=== PATIENT | female | born 2000 | race Caucasian/White ===

== ENCOUNTER 2023-08-16 13:40 | Outpatient (CLI) | payer BC, SELFPAY ==
[2023-08-16 14:07] VITALS: BP 105/62; PULSE 82; TEMP 36.7
[2023-08-16 14:14] VITALS: BMI 28.6
--- NOTE | 2023-08-16 19:50 | OB.TRI.NOTE ---
HPI - General HPI Narrative KATIE SMITH, is a 23 F who presents Maternal Data Information Final SOCORRO: 11/15/23 Gestational age: 27 PFSH PFSH Home Medications vit no.95-ferrous fumarate 28 mg-folic acid 800 mcg tablet () 1 tab PO DAILY 08/16/23 [History Last Taken Unknown] Allergy/AdvReac Type Severity Reaction Status Date / Time No Known Allergies Allergy Verified 08/16/23 14:13 NST FHR Rate Baby A Baseline: 125 Variability:: Moderate Accelerations:: 15 x 15 Decelerations:: None NST Reactive:: Yes Uterine Activity:: quiet Assessment & Plan (1) Threatened premature labor: QUALIFIERS: Trimester: third trimester Qualified Code(s): O47.03 - False labor before 37 completed weeks of gestation, third trimester PLAN: Plan reactive NST
== END 2023-08-16 15:13 | disposition home or self-care (01) ==
LOC: WPOUT 13:56 → WP 13:57
PROVIDERS: Referring Provider Obstetrics & Gynecology; Visit Provider Obstetrics & Gynecology
DX: O47.03 False labor before 37 completed weeks of gestation, third trimester (principal); Z3A.00 Weeks of gestation of pregnancy not specified
CPT/HCPCS: 59025; 59050; 99221; G0378

== ENCOUNTER 2023-10-08 23:20 | Outpatient (CLI) | payer BC, SELFPAY ==
--- OUTSIDE RECORDS SUMMARY | 2023-10-08 23:40 | XMS RPT_ITS | CCD ---
Author Name Unknown Address [address] [place] [address] Organization [facility] Care Team Providers Care Group Supervisor Yard Name Role Phone Kenneth Cummins Attending Unavailable Lenora Sofia Primary Care Unavailable Kenneth Cummins Attending Unavailable Lenora Sofia Primary Care Unavailable Kenneth Cummins Unavailable Unavailable Reginaldo Sofialas Maribeth Unavailable Unavailable Lenora Sofia Unavailable Unavailable MEHREEN CURRAN Attending Unavailable LENORA SOFIA Primary Care Unavailab Reginaldo Rochelas Maribeth Unavailable Unavailable Unavailable Wilber Sofia Unavailable [phone] Yeyo Wilkinson Unavailable UnavailKenneth Henry Unavailable Gillian Ornelas Unavailable UnavailYeyo Velasquez Unavailable UnavailKENNETH Henry Referring Unavailable KENNETH CUMMINS Attending Unavailable BISMARK WILBER JANELLE Primary Care Unavailable KENNETH CUMMINS Referring Unavailable KENNETH CUMMINS Attending Unavailable WILBER SOFIA JANELLE Primary Care Unavailable KENNETH CUMMINS Referring Unavailable Dr. Guero Ybarra Attending Unavailmita MENGER WILBER JANELLE Primary Care Unavailable KENNETH CUMMINS Referring Unavailable KENNETH CUMMINS Attending Unavailable BISMARK, WILBER JANELLE Primary Care Unavailable KENNETH CUMMINS Attending Unavailable BISMARK, WILBER JANELLE Primary Care Unavailable KENNETH CUMMINS Referring Unavailable KENNETH CUMMINS Attending Unavailable BISMARK WILBER JANELLE Primary Care Unavailable KENNETH CUMMINS Attending Unavailable BISMARK, WILBER JANELLE Primary Care Unavailable KENNETH CUMMINS Attending Unavailable KENNETH CUMMINS Referring Unavailable BISMARK, WILBER JANELLE Primary Care Unavailable KENNETH CUMMINS Attending Unavailable KENNETH CUMMINS Referring Unavailable WILBER SOFIA Primary Care Unavailable KENNETH CUMMINS Attending Unavailable WILBER SOFIA Primary Care Unavailable KENNETH CUMMINS Attending Unavailable WILBER SOFIA Primary Care Unavailable KENNETH CUMMINS Referring Unavailable KENNETH CUMMINS Attending Unavailable WILBER SOFIA Primary Care Unavailable KENNETH CUMMINS Referring Unavailable KENNETH CUMMINS Attending Unavailable WILBER SOFIA Primary Care Unavailable Dr. Wilber Sofia Primary Care Unavailab cayden Wilkinson, Dr. Yeyo Macias Attending Unav ailable Unavailable Primary Care Provider Unavailabl e WISWELL, GERARDO Referring Unavailable WISWELL, GERARDO Attending Unavailable LUCAS, ILENE Referring Unavailable LUCAS, ILENE Attending Unavailable LUCAS, ILENE Referring Unavailable CONNIE SANDERS Attending Unavailable LUCAS, ILENE Referring Unavailable WISWELL, GERARDO Referring Unavailable Allergies Allergy Classification Reported Allergen(s) Allergy Type Date of Onset Reaction(s) Facility (1 source) Adhesive Tape; Translations: [Tape] Propensity to adverse reactions to drug (disorder) [facility] Repository (20 sources) Adhesive Tape allergy to substance Hives [facility] [address] Work Phone: (4 sources) Tape - Adhesive, Bandaids, Paper Unknown [facility] Medications Current Medications Medication Drug Class(es) Dates Sig (Normalized) Sig (Original) betamethasone 3 mg/ml / betamethasone acetate 3 mg/ml injectable suspension (1 source) Corticosteroid Celestone Soluspan 6 mg/mL injectable suspension ; 12 milligram(s) injectable twice Quantity: 0 Refills: 0 Ordered: 24-Dec-2021 Ronald Vazquez Status: Other Generic Substitution Allowed cephalexin 500 mg oral tablet (2 sources) Cephalosporin Antibacterial Start: 02-18-2022 End: 02-24-2022 take 1 tablet by mouth twice daily cephalexin 500 mg oral tablet ; 1 tab(s) orally 2 times a day Quantity: 14 Refills: 0 Ordered: 18-Feb-2022 Yeyo Wilkinson Start: 18-Feb-2022 End: 24-Feb-2022 Generic Substitution Allowed Comments: Finish all this medication unless otherwise directed by prescriber. Completed/Discontinued Medications Medication Drug Class(es) Dates Sig (Normalized) Sig (Original) aspirin 81 mg delayed release oral tablet (6 sources) Platelet Aggregation Inhibitor, Nonsteroidal Anti-inflammatory Drug Start: 07-01-2023 take 1 tablet by mouth once daily aspirin, enteric coated (ASPIRIN, ENTERIC COATED) 81 mg EC tablet Take 1 tablet by mouth once daily. 30 tablet 4 07/01/2023 Active Problems Active Problems Problem Classification Problem Date Documented Da te Episodic/Chronic Abdominal pain (2 sources) Left lower quadrant pain; Translations: [Left lower quadrant pain] Onset: 04-01-2023 Episodic Complications of surgical procedures or medical care (1 source) Post dural puncture headache; Translations: [Reaction to spinal or lumbar puncture] 02-18-2022 Episodic Headache; including migraine (1 source) Headache; including migraine 02-18-2022 Immunizations and screening for infectious disease (20 sources) Patient encounter status; Translations: [Screening examination for venereal disease] 05-18-2023 Episodic Inflammatory diseases of female pelvic organs (11 sources) Bacterial vaginosis; Translations: [Vaginitis and vulvovaginitis, unspecified] Episodic Menstrual disorders (11 sources) Amenorrhea; Translations: [Absence of menstruation] Chronic Mood disorders (2 sources) Depressive disorder; Translations: [Depressive disorder, not elsewhere classified] 08-14-2021 Chronic OB-related trauma to perineum and vulva (1 source) Perineal laceration during delivery; Translations: [Other specified trauma to perineum and vulva, delivered, with or without mention of antepartum condition] Onset: 02-15-2022 02-15-2022 Episodic Other complications of (8 sources) Anemia in mother complicating , childbirth AND/OR puerperium; Translations: [Anemia complicating , third trimester] Onset: 09-05-2023 09-05-2023 Chronic Other complications of (1 source) Anemia complicating , third trimester; Translations: [Anemia complicating , third trimester] Onset: 09-05-2023 Chronic Other complications of (17 sources) RhD negative; Translations: [Other specified complications of , antepartum condition or complication] 09-05-2023 Episodic Other complications of (16 sources) Mild depression; Translations: [Mental disorders of mother, condition or complication] Episodic Other complications of (2 sources) Other specified related conditions, first trimester; Translations: [Oth related conditions, first trimester] Onset: 04-01-2023 Episodic Other endocrine disorders (10 sources) Menarche; Translations: [History of Menarche] Chronic Other gastrointestinal disorders (4 sources) Abnormal intestinal absorption; Translations: [Intestinal malabsorption, unspecified] Onset: 09-13-2023 09-13-2023 Chronic Other nutritional; endocrine; and metabolic disorders (6 sources) Body mass index 30+ - obesity; Translations: [Obesity, unspecified] Chronic Other and delivery including normal (20 sources) Urine test positive; Translations: [History of past delivery] Onset: 05-18-2023 Resolved: 01-15-2020 02-13-2022 Episodic Past or Other Problems Problem Classification Problem Date Documented Da te Episodic/Chronic Other complications of (10 sources) Complication of , childbirth and/or the puerperium; Translations: [Other specified related conditions, unspecified trimester] Onset: 04-28-2023 04-28-2023 Episodic Other complications of (9 sources) Obstetric spinal and epidural anesthesia-induced headache; Translations: [Spinal and epidural anesthesia induced headache during , unspecified trimester] Onset: 04-28-2023 04-28-2023 Episodic Screening and history of mental health and substance abuse codes (11 sources) H/O: depression; Translations: [Personal history of other mental and behavioral disorders] Onset: 04-28-2023 04-28-2023 Episodic Unclassified (8 sources) Patient encounter status; Translations: [Screening for STD (sexually transmitted disease)] Unclassified (8 sources) Cancer cervix screening status; Translations: [Screening for cervical cancer] Unclassified (16 sources) Finding of menstrual bleeding; Translations: [Menstruation] Results Test Name Value Interpretation Reference Range Facil ity Vital Signs Date Time Vital Sign Value Performing Clinician Facility 09-05-2023 13:56-0400 Body weight 78.11 kg Gerardo Castellon MD Work Phone: [facility] 09-05-2023 13:56-0400 Diastolic blood pressure 62 mm[Hg] Gerardo Castellon MD Work Phone: [facility] 09-05-2023 13:56-0400 Systolic blood pressure 110 mm[Hg] Gerardo Castellon MD Work Phone: [facility] 07-01-2023 14:14-0400 Body weight 71.67 kg Connie Danielmolly NURSE PRACTITIONER MANAGER.CNM Work Phone: [facility] 07-01-2023 14:14-0400 Diastolic blood pressure 62 mm[Hg] Connie Maríamolly NURSE PRACTITIONER MANAGER.CNM Work Phone: [facility] 07-01-2023 14:14-0400 Systolic blood pressure 90 mm[Hg] Connie Sanders NURSE PRACTITIONER MANAGER.CNM Work Phone: [facility] 05-18-2023 13:04-0400 Body height 161 cm Ilene Lucas NURSE PRACTITIONER MANAGER.CNM Work Phone: [facility] 05-18-2023 13:04-0400 Body weight 68.58 kg Ilene Lucas NURSE PRACTITIONER MANAGER.CNM Work Phone: [facility] 05-18-2023 13:04-0400 Diastolic blood pressure 66 mm[Hg] Ilene Lucas NURSE PRACTITIONER MANAGER.CNM Work Phone: [facility] 05-18-2023 13:04-0400 Systolic blood pressure 108 mm[Hg] Ilene Lucas NURSE PRACTITIONER MANAGER.CNM Work Phone: [facility] 02-18-2022 02:07-0400 Body temperature 98.78 [degF] Wibler Bismark Other Phone: [facility] 02-18-2022 02:07-0400 Diastolic blood pressure 91 mm[Hg] Wilber Bismark Other Phone: [facility] 02-18-2022 02:07-0400 Heart rate 82 /min Wilber Bismark Other Phone: [facility] 02-18-2022 02:07-0400 Respiratory rate 16 /min Wilber Bismark Other Phone: [facility] 02-18-2022 02:07-0400 SaO2% (BldA) [Mass fraction] 99 % Wilber Bismark Other Phone: [facility] 02-18-2022 02:07-0400 Systolic blood pressure 116 mm[Hg] Wilber Bismark Other Phone: [facility] 02-15-2022 18:38-0400 Body temperature 97.7 [degF] Wilber Bismark Other Phone: [facility] 02-15-2022 18:38-0400 Diastolic blood pressure 85 mm[Hg] Wilber Bismark Other Phone: [facility] 02-15-2022 18:38-0400 Heart rate 87 /min Wilber Bismark Other Phone: [facility] 02-15-2022 18:38-0400 Respiratory rate 16 /min Wilber Bismark Other Phone: [facility] 02-15-2022 18:38-0400 SaO2% (BldA) [Mass fraction] 98 % Wilber Bismark Other Phone: [facility] 02-15-2022 18:38-0400 Systolic blood pressure 127 mm[Hg] Wilber Bismark Other Phone: [facility] 02-12-2022 14:08-0400 Body height 160.02 cm Wilber L Bismark Work Phone: [facility] Work Phone: 02-12-2022 14:08-0400 Body mass index (BMI) [Ratio] 34.76 kg/m2 Wilber L Bismark Work Phone: [facility] Work Phone: 02-12-2022 14:08-0400 Body surface area Derived from formula 1.92 m2 Wilber L Bismark Work Phone[facility] Work Phone: 02-12-2022 14:08-0400 Body weight 89 kg Wilber L Bismark Work Phone: [place] [address] [address] Work Phone: 02-12-2022 14:08-0400 Diastolic blood pressure 68 mm[Hg] Wilber L Bismark Work Phone: [place] [address] [address] Work Phone: 02-12-2022 14:08-0400 Systolic blood pressure 112 mm[Hg] Wilber L Bismark Work Phone: [place] [address] [address] Work Phone: 02-05-2022 13:45-0400 Body height 160.02 cm Wilber L Bismark Work Phone: [place] [address] [address] Work Phone: 02-05-2022 13:45-0400 Body mass index (BMI) [Ratio] 33.86 kg/m2 Wilber L Bismark Work Phone: [address] Work Phone: 02-05-2022 13:45-0400 Body surface area Derived from formula 1.9 m2 Wilber L Bismark Work Phone: [place] [address] [address] Work Phone: 02-05-2022 13:45-0400 Body weight 86.7 kg Wilber L Bismark Work Phone: [place] [address] [address] Work Phone: 02-05-2022 13:45-0400 Diastolic blood pressure 70 mm[Hg] Wilber L Bismark Work Phone: [place] [address] [address] Work Phone: 02-05-2022 13:45-0400 Systolic blood pressure 100 mm[Hg] Wilber L Bismark Work Phone: [place] [address] [address] Work Phone: 01-29-2022 13:11-0400 Body height 160.02 cm Wilber L Bismark Work Phone: [facility] [place] [address] [address] Work Phone: 01-29-2022 13:11-0400 Body mass index (BMI) [Ratio] 33.39 kg/m2 Wilber L Bismark Work Phone: [place] [address] [address] Work Phone: 01-29-2022 13:11-0400 Body surface area Derived from formula 1.89 m2 Wilber L Bismark Work Phone: [facility] [address] [address] Work Phone: 01-29-2022 13:11-0400 Body weight 85.5 kg Wilber L Bismark Work Phone: [place] [address] [address] Work Phone: 01-29-2022 13:11-0400 Diastolic blood pressure 68 mm[Hg] Wilber L Bismark Work Phone: [place] [address] [address] Work Phone: 01-29-2022 13:11-0400 Systolic blood pressure 116 mm[Hg] Wilber L Bismark Work Phone: [place] [address] [address] Work Phone: 01-22-2022 13:06-0400 Body height 160.02 cm Wilber L Bismark Work Phone: [place] [address] [address] Work Phone: 01-22-2022 13:06-0400 Body mass index (BMI) [Ratio] 33 kg/m2 Wilber L Bismark Work Phone: [place] [address] [address] Work Phone: 01-22-2022 13:06-0400 Body surface area Derived from formula 1.88 m2 Wilber L Bismark Work Phone: [place] [address] [address] Work Phone: 01-22-2022 13:06-0400 Body weight 84.5 kg Wilber L Bismark Work Phone: [facility] [address] [address] Work Phone: 01-22-2022 13:06-0400 Diastolic blood pressure 66 mm[Hg] Wilber L Bismark Work Phone: [facility] [address] [address] Work Phone: 01-22-2022 13:06-0400 Systolic blood pressure 114 mm[Hg] Wilber L Bismark Work Phone: [facility] [address] [address] Work Phone: 01-08-2022 13:16-0500 Body height 160.02 cm Wilber L Bismark Work Phone: [place] [address] [address] Work Phone: 01-08-2022 13:16-0500 Body mass index (BMI) [Ratio] 32.41 kg/m2 Wilber L Bismark Work Phone: [place] [address] [address] Work Phone: 01-08-2022 13:16-0500 Body surface area Derived from formula 1.86 m2 Wilber L Bismark Work Phone: [place] [address] [address] Work Phone: 01-08-2022 13:16-0500 Body weight 83 kg Wilber L Bismark Work Phone: [place] [address] [address] Work Phone: 01-08-2022 13:16-0500 Diastolic blood pressure 64 mm[Hg] Wilber L Bismark Work Phone: [place] [address] [address] Work Phone: 01-08-2022 13:16-0500 Systolic blood pressure 116 mm[Hg] Wilber L Bismark Work Phone: [facility] [place] [address] [address] Work Phone: 12-25-2021 09:55-0500 Body height 160.02 cm Wilber L Bismark Work Phone: [place] [address] [address] Work Phone: 12-25-2021 09:55-0500 Body mass index (BMI) [Ratio] 32.65 kg/m2 Wilber L Bismark Work Phone: [place] [address] [address] Work Phone: 12-25-2021 09:55-0500 Body surface area Derived from formula 1.87 m2 Wilber L Bismark Work Phone: [place] [address] [address] Work Phone: 12-25-2021 09:55-0500 Body temperature 97.1 [degF] Wilber L Bismark Work Phone: [facility] [address] [address] Work Phone: 12-25-2021 09:55-0500 Body weight 83.6 kg Wilber L Bismark Work Phone: [place] [address] [address] Work Phone: 12-25-2021 09:55-0500 Diastolic blood pressure 64 mm[Hg] Wilber L Bismark Work Phone: [place] [address] [address] Work Phone: 12-25-2021 09:55-0500 Systolic blood pressure 122 mm[Hg] Wilber L Bismark Work Phone: [place] [address] [address] Work Phone: 10-15-2021 12:50-0500 Diastolic blood pressure 67 mm[Hg] Wilber Bismark Other Phone: [facility] 10-15-2021 12:50-0500 Heart rate 102 /min Wilber Bismark Other Phone: [facility] 10-15-2021 12:50-0500 Respiratory rate 18 /min Wilber Bismark Other Phone: [facility] 10-15-2021 12:50-0500 SaO2% (BldA) [Mass fraction] 100 % Wilber Bismark Other Phone: [facility] 10-15-2021 12:50-0500 Systolic blood pressure 116 mm[Hg] Wilber Bismark Other Phone: [facility] 10-15-2021 11:12-0500 Body height 162.5 cm Wilber Bismark Other Phone: [facility] 10-15-2021 11:12-0500 Body temperature 98.24 [degF] Wilber Bismark Other Phone: [facility] 10-15-2021 11:12-0500 Body weight 80 kg Wilber Bismark Other Phone: [facility] 09-25-2021 10:51-0500 Body height 160.02 cm Wilber L Bismark Work Phone: [facility] Work Phone: 09-25-2021 10:51-0500 Body mass index (BMI) [Ratio] 31.48 kg/m2 Wilber L Bismark Work Phone: [facility] Work Phone: 09-25-2021 10:51-0500 Body surface area Derived from formula 1.84 m2 Wilber L Bismark Work Phone: [facility] Work Phone: 09-25-2021 10:51-0500 Body temperature 96.8 [degF] Wilber L Bismark Work Phone: [facility] Work Phone: 09-25-2021 10:51-0500 Body weight 80.6 kg Wilber L Bismark Work Phone: [facility] Work Phone: 09-25-2021 10:51-0500 Diastolic blood pressure 70 mm[Hg] Wilber L Bismark Work Phone[facility] Work Phone: 09-25-2021 10:51-0500 Systolic blood pressure 110 mm[Hg] Wilber L Bismark Work Phone: [place] [address] [address] Work Phone: 08-28-2021 10:18-0400 Body height 160.02 cm Wilber L Bismark Work Phone: [place] [address] [address] Work Phone: 08-28-2021 10:18-0400 Body mass index (BMI) [Ratio] 30.34 kg/m2 Wilber L Bismark Work Phone: [place] [address] [address] Work Phone: 08-28-2021 10:18-0400 Body surface area Derived from formula 1.81 m2 Wilber L Bismark Work Phone: [place] [address] [address] Work Phone: 08-28-2021 10:18-0400 Body temperature 97.3 [degF] Wilber L Bismark Work Phone: [place] [address] [address] Work Phone: 08-28-2021 10:18-0400 Body weight 77.7 kg Wilber L Bismark Work Phone: [place] [address] [address] Work Phone: 08-28-2021 10:18-0400 Diastolic blood pressure 62 mm[Hg] Wilber L Bismark Work Phone: [facility] Work Phone: 08-28-2021 10:18-0400 Systolic blood pressure 108 mm[Hg] Wilber L Bismark Work Phone: [place] [address] [address] Work Phone: 08-14-2021 17:30-0400 Diastolic blood pressure 79 mm[Hg] Wilber Bismark Other Phone: [facility] 08-14-2021 17:30-0400 Heart rate 87 /min Wilber Bismark Other Phone: [facility] 08-14-2021 17:30-0400 Respiratory rate 16 /min Wilber Bismark Other Phone: [facility] 08-14-2021 17:30-0400 SaO2% (BldA) [Mass fraction] 97 % Wilber Bismark Other Phone: [facility] 08-14-2021 17:30-0400 Systolic blood pressure 119 mm[Hg] Wilber Bismark Other Phone: [facility] 08-14-2021 15:11-0400 Body height 160 cm Wilber Bismark Other Phone: [facility] 08-14-2021 15:11-0400 Body temperature 98.06 [degF] Wilber Bismark Other Phone: [facility] 08-14-2021 15:11-0400 Body weight 75.3 kg Wilber Bismark Other Phone: [facility] 07-20-2021 09:50-0400 Body height 160.02 cm Wilber L Bismark [facility] Work Phone: 07-20-2021 09:50-0400 Body mass index (BMI) [Ratio] 29.06 kg/m2 Wilber L Bismark Work [facility]: [facility] Work Phone: 07-20-2021 09:50-0400 Body surface area Derived from formula 1.78 m2 Wilber L Bismark [facility] [address] Work Phone: 07-20-2021 09:50-0400 Body temperature 97.8 [degF] Wilber Menger Work Phone: [facility] [address] Work Phone: 07-20-2021 09:50-0400 Body weight 74.4 kg Wilber Menger Work Phone: [facility] [address] Work Phone: 07-20-2021 09:50-0400 Diastolic blood pressure 62 mm[Hg] Wilber Menger Work Phone: [facility] [address] Work Phone: 07-20-2021 09:50-0400 Systolic blood pressure 114 mm[Hg] Wilber Menger Work Phone: [facility] [address] [address] Work Phone: 11-13-2019 15:26-0500 BMI (Body Mass Index) 31.2 kg/m2 Kenneth [address] Work Phone: 11-13-2019 15:26-0500 Body weight 79.9 kg Kenneth Tru[address] Work Phone: 11-13-2019 15:26-0500 BP Diastolic 62 mm[Hg] Kenneth [address] Work Phone: 11-13-2019 15:26-0500 BP Systolic 112 mm[Hg] Kenneth Tru[address] Work Phone: 11-13-2019 15:26-0500 BSA (Body Surface Area) 1.83 m2 Kenneth Tru[address] Work Phone: 11-13-2019 15:26-0500 Height 160.02 cm Kenneth Tru[address] Work Phone: 10-09-2019 13:47-0500 BMI (Body Mass Index) 29.49 kg/m2 Kenneth Kelley [facility] Work Phone: 10-09-2019 13:47-0500 Body weight 75.5 kg Kenneth morocho [facility] Work Phone: 10-09-2019 13:47-0500 BP Diastolic 64 mm[Hg] Kenneth morocho [facility] Work Phone: 10-09-2019 13:47-0500 BP Systolic 116 mm[Hg] Kenneth morocho [facility] Work Phone: 10-09-2019 13:47-0500 BSA (Body Surface Area) 1.79 m2 Kenneth Bueno [facility] Work Phone: 10-09-2019 13:47-0500 Height 160.02 cm Kenneth morocho [facility] Work Phone: 09-21-2019 15:50-0500 BMI (Body Mass Index) 28.9 kg/m2 Kenneth Kelley [facility] Work Phone: 09-21-2019 15:50-0500 Body weight 74 kg Kenneth morocho [facility] Work Phone: 09-21-2019 15:50-0500 BP Diastolic 66 mm[Hg] Kenneth morocho [facility] Work Phone: Encounters Encounter Date Encounter Type Care Provider Facility Start: 09-19-2023 Orders Only Gerardo Morocho Work Phone: OB/Gynecology Start: 09-13-2023 ambulatory Sofya Fisher RN [facility] Procedures Date Procedure Procedure Detail Performing Clinician Start: 09-05-2023 Antibody screen GERARDO BETANCUR Plan of Treatment Date Care Activity Detail Author Start: 09-05-2033 Urine microalbumin profile DTaP,Tdap,Td Vaccine (8 - Td or Tdap) [facility] Start: 05-18-2026 PAP TESTING PAP TESTING [facility] Start: 09-05-2023 End: 12-05-2023 GEST GLUC SCREEN, 1-HR, 50 GM, NON-FASTING GEST GLUC SCREEN, 1-HR, 50 GM, NON-FASTING Lab Routine 29 weeks gestation of Encounter for supervision of normal first in second trimester Expected: 09/05/2023, Expires: 12/05/2023 [facility] Work Phone: Immunizations Immunization Date Immunization Notes Care Provider Fa parag 09-05-2023 RHO(D) immune globul in- IV or IM Gerardo Castellon MD Work Phone: [facility] 09-05-2023 tetanus toxoid, redu abdais diphtheria toxoid, and acellular pertussis vaccine, adsorbed Gerardo Castellon MD Work Phone: [facility] Payers Date Payer Category Payer Medicaid AN[employer]M MEDICAID [employer] [employer] [place] [id number] 2023-Present [phone] [address] [place] [address] Medicaid [id number] 2023 Medicaid [id number] 2018 Medicaid [id number] 2018 Unknown 2016 Medicaid [id number] 1999 Unknown [id number] [id number] 1999 Unknown [id number] [id number] 1999 Unknown [id number] [id number] 1999 Unknown [id number] [id number] 1999 Unknown [id number] [id number] 1999 Unknown [id number] [id number] 1999 Unknown [id number] 2.16.840.1.743303.3.579.2.356 1999 Unknown [id number] 2.16.840.1.881770.3.579.2.356 1999 Unknown [id number] 2.16.840.1.798021.3.579.2.356 1999 Unknown [id number] 2.16.840.1.175342.3.579.2.356 1999 Unknown [id number] 2.16.840.1.725952.3.579.2.356 1999 Unknown [id number] 2.16.840.1.050050.3.579.2.356 1999 Unknown [id number] 2.16.840.1.778545.3.579.2.356 1999 Unknown [id number] 2.16.840.1.537233.3.579.2.356 1999 Unknown [id number] 2.16.840.1.725789.3.579.2.356 1999 Unknown [id number] 2.16.840.1.517224.3.579.2.356 1999 Unknown [id number] [id number] Self-pay [id number] Social History Date Type Detail Facility Assertion Unknown if ever smoked [facility] [address] Work Phone: Start: 05-18-2023 End: 09-05-2023 No alcohol use No alcohol use [facility] 35 0 [employer] Work Phone: Tobacco smoking consumption unknown [facility] Start: 04-28-2023 Tobacco smoking stat NHIS Ex-smoker [facility] Work Phone: End: 04-22-2022 History of tobacco use Current smoker [facility] Work Phone: End: 04-22-2022 History of tobacco use Cigarette Smoker [facility] Work Phone: Start: 04-28-2023 Tobacco use and exposure Smokeless tobacco non-user [facility] Work Phone: Start: 04-28-2023 End: 09-05-2023 Alcohol intake Ex-drinker (finding) [facility] Start: 04-28-2023 Education 13 [facility] Start: 04-28-2023 Alcohol Comment Rarely [facility] Start: 02-22-2023 [facility] Start: 2000 Sex Assigned At Not on file [facility] Start: 05-18-2023 End: 09-05-2023 Tobacco use panel [facility] National Score (1-100), lower number is lower risk 80 [facility] Functional Status Date Assessment Result Facility Functional observable [facility] NEGATED: Highlighted row Functional performance Functional status health issues are not documented Disease [employer] Work Phone: Mental Status Date Assessment Result Facility 02-15-2022 Cognitive functi ons [id number] [facility] NEGATED: Highlighted row Cognitive function [Interpretation] Cognitive status health issues are not documented Disease [facility] [employer] Work Phone: Clinical Notes 05-07-2021 to 09-19-2023 Gerardo Castellon MD - 09/19/2023 12:05 PM [facility] Sofya Daly RN - 09/13/2023 12:24 PM Edwige Coelho RN - 09/05/2023 2:59 PM Maria C Griffiths MA - 09/05/2023 1:56 PM EDTPatient Instructions<item> Note Date & Type Note Facility 09-19-2023 Note HNO ID: [id number] Author: Gerrado Castellon MD Service: ? Author Type: Physician Type: Progress Notes Filed: 09/19/2023 12:05 PM Note Text: Signed [facility] 09-19-2023 History of Presen t illness Narrative Signed documented in this encounter [facility] 09-13-2023 Note HNO ID: [id number] Author: Sofya Fisher RN Service: ? Author Type: Registered Nurse Type: Progress Notes Filed: 09/13/2023 12:26 PM Note Text: Patient referred to Blood Management for evaluation and treatment of pre-surgical anemia and/or iron deficiency. Non-surgical: anemia in Date of surgery: NA Medical/Surgical History: PAST MEDICAL HISTORY Diagnosis Date Anemia Depression Fracture of upper extremity left arm age 10 Headache following intrapartum spinal anesthesia 04/28/2023 depression Trauma PAST SURGICAL HISTORY Procedure Laterality Date APPENDECTOMY PAST SURGICAL HISTORY OF Left x3 on left arm-hardware placed Other significant Medical/Surgical history: - None Current Outpatient Medications Medication Sig aspirin, enteric coated (ASPIRIN, ENTERIC COATED) 81 mg EC tablet Take 1 tablet by mouth once daily. prental multivitamin 27 mg iron- 800 mcg tablet Take 1 tablet by mouth once daily. Iron 18 mg tab Take by mouth. No current facility-administered medications for this visit. Current medications that may affect iron absorption and/or blood loss: - None Baseline laboratory values: WBC (k/uL) Date Value 09/05/2023 12.15 (H) RBC (m/uL) Date Value 09/05/2023 3.66 (L) Hemoglobin (g/dL) Date Value 09/05/2023 9.0 (L) Hematocrit (%) Date Value 09/05/2023 28.9 (L) MCV (fL) Date Value 09/05/2023 79.0 (L) MCH (pg) Date Value 09/05/2023 24.6 (L) MCHC (g/dL) Date Value 09/05/2023 31.1 RDW-CV (%) Date Value 09/05/2023 15.2 (H) Platelet Count (k/uL) Date Value 09/05/2023 234 MPV (fL) Date Value 09/05/2023 10.7 Iron Date Value Ref Range Status 09/07/2023 27 (L) 41 - 186 ug/dL Final TIBC Date Value Ref Range Status 09/07/2023 >527 (H) 232 - 386 ug/dL Final Ferritin Date Value Ref Range Status 09/07/2023 12.2 (L) 14.7 - 205.1 ng/mL Final Transferrin Saturation Date Value Ref Range Status 09/07/2023 <5.1 (L) 15.0 - 57.0 % Final Assess for the need to augment a patient?s natural red blood cell production: - Blood transfusion avoidance - Iron depletion Recommendations according to Blood Management patient care guidelines: - Iron Sucrose 200 mg, IV infusion, dose(s) 4 total iron deficit using Ganzoni equation = 831 mg (pre- wt 69 kg/goal hgb 11 g/dL) Clinical information is sent to a provider for review and evaluation for treatment. [facility] 09-13-2023 History of Presen t illness Narrative Patient referred to Blood Management for evaluation and treatment of pre-surgical anemia and/or iron deficiency. Non-surgical: anemia in Date of surgery: NA Medical/Surgical History: PAST MEDICAL HISTORY Diagnosis Date Anemia Depression Fracture of upper extremity left arm age 10 Headache following intrapartum spinal anesthesia 04/28/2023 depression Trauma PAST SURGICAL HISTORY Procedure Laterality Date APPENDECTOMY PAST SURGICAL HISTORY OF Left x3 on left arm-hardware placed Other significant Medical/Surgical history: - None Current Outpatient Medications Medication Sig aspirin, enteric coated (ASPIRIN, ENTERIC COATED) 81 mg EC tablet Take 1 tablet by mouth once daily. prental multivitamin 27 mg iron- 800 mcg tablet Take 1 tablet by mouth once daily. Iron 18 mg tab Take by mouth. No current facility-administered medications for this visit. Current medications that may affect iron absorption and/or blood loss: - None Baseline laboratory values: WBC (k/uL) Date Value 09/05/2023 12.15 (H) RBC (m/uL) Date Value 09/05/2023 3.66 (L) Hemoglobin (g/dL) Date Value 09/05/2023 9.0 (L) Hematocrit (%) Date Value 09/05/2023 28.9 (L) MCV (fL) Date Value 09/05/2023 79.0 (L) MCH (pg) Date Value 09/05/2023 24.6 (L) MCHC (g/dL) Date Value 09/05/2023 31.1 RDW-CV (%) Date Value 09/05/2023 15.2 (H) Platelet Count (k/uL) Date Value 09/05/2023 234 MPV (fL) Date Value 09/05/2023 10.7 Iron Date Value Ref Range Status 09/07/2023 27 (L) 41 - 186 ug/dL Final TIBC Date Value Ref Range Status 09/07/2023 >527 (H) 232 - 386 ug/dL Final Ferritin Date Value Ref Range Status 09/07/2023 12.2 (L) 14.7 - 205.1 ng/mL Final Transferrin Saturation Date Value Ref Range Status 09/07/2023 <5.1 (L) 15.0 - 57.0 % Final Assess for the need to augment a patient s natural red blood cell production: - Blood transfusion avoidance - Iron depletion Recommendations according to Blood Management patient care guidelines: - Iron Sucrose 200 mg, IV infusion, dose(s) 4 total iron deficit using Ganzoni equation = 831 mg (pre- wt 69 kg/goal hgb 11 g/dL) Clinical information is sent to a provider for review and evaluation for treatment. documented in this encounter [facility] 09-05-2023 Note HNO ID: [id number] Author: Edwige Solomon RN Service: ? Author Type: ? Type: Progress Notes Filed: 09/05/2023 5:20 PM Note Text: Morgan Smith 23 year old is here for her injection of Rhophylac. Morgan Smith Antibody Screen (no units) Date Value 05/18/2023 Negative Morgan Smith is RH Negative Rhophylac was given without incident. See immunizations for details of immunizations administered today. Provider Dr. Castellon was present in office at time of injection Morgan Smith was given her Rhophylac pocket card. Edwige Solomon RN [facility] 09-05-2023 Note HNO ID: [id number] Author: Maria C Jimenez MA Service: ? Author Type: Gas Cutter Type: Progress Notes Filed: 09/05/2023 5:20 PM Note Text: Patient identified by name and date of . Morgan Smith presents today for a vaccination of Tdap. Patient denies an allergy to latex: yes Patient denies a severe (life-threatening) allergy to a previous dose of Tdap, DTP, DTaP, DT or Td vaccine. Yes Patient denies history of epilepsy or neurological problems: Yes Patient is afebrile and denies being moderately or severely ill: Yes Patient denies history of Guillain-Boston Syndrome (a severe paralytic illness): Yes Tdap Adacel injection was given without incident. See immunizations for details of immunizations administered today. VIS sheet provided: Yes Provider Gerardo Castellon DO was present in office at time of injection. Maria C Jimenez MA [facility] 09-05-2023 History of Presen t illness Narrative Morgan Smith 23 year old is here for her injection of Rhophylac. Morgan Smith Antibody Screen (no units) Date Value 05/18/2023 Negative Morgan Smith is RH Negative Rhophylac was given without incident. See immunizations for details of immunizations administered today. Provider Dr. Castellon was present in office at time of injection Morgan Smith was given her Rhophylac pocket card. Edwige Solomon RN Patient identified by name and date of . Morgan Smith presents today for a vaccination of Tdap. Patient denies an allergy to latex: yes Patient denies a severe (life-threatening) allergy to a previous dose of Tdap, DTP, DTaP, DT or Td vaccine. Yes Patient denies history of epilepsy or neurological problems: Yes Patient is afebrile and denies being moderately or severely ill: Yes Patient denies history of Guillain-Boston Syndrome (a severe paralytic illness): Yes Tdap Adacel injection was given without incident. See immunizations for details of immunizations administered today. VIS sheet provided: Yes Provider Gerardo Castellon DO was present in office at time of injection. Maria C Jimenez MA documented in this encounter [facility] 09-05-2023 Miscellaneous Notes Formattin g of this note might be different from the original. SW- No ctx, vb, lof. Good FM PE: Gen- NAD, well appearing Abd- Soft, gravid, NT Ext- No edema See flowsheet A/p 29 wk gestation - 28 wk labs today - Tdap and Rhogam today - Desires sterilization. Title 19 signed. She understands sterilization is permanent and irreversible and there is a risk for regret. She is 100% certain she does not desire future pregnancies - LARC signed - RTO 2 wks Gerardo Castellon DO documented in this encounter [facility] 09-05-2023 Instructions Gerardo Castellon MD - 09/05/2023 1:49 PM EDT SEQUENTIAL SCREENINGS The [facility] offers sequential screenings for women who are interested in screenings for chromosomal abnormalities and certain defects during a . The sequential screen combines ultrasound and blood tests to determine the risk of chromosomal abnormalities, including Down's Syndrome (Trisomy 21) and Trisomy 18, as well as open neural tube defects including spina bifida. Ultrasound examination is performed between 11 weeks and 13 weeks gestational age. Blood tests are drawn after the ultrasound and again later in the between 15 and 21 weeks gestational age. Please let your physician know if you are interested in this testing. It will require an appointment with our community planning technician. This is not an ultrasound performed by a physician in our office during a routine visit. SIGNS AND SYMPTOMS OF LABOR 1. Contractions every 10 minutes or more often 2. Clear, pink, or brownish fluid (water) leaking from vagina 3. Feeling that baby is pushing down, pressure 4. Low, dull backache 5. Cramps that feel like a period 6. Cramps with or without diarrhea If you notice any of the above symptoms, contact our office at [phone] and ask to speak with a nurse. After hours, you can call doctors registry at [phone] OR call [facility] at [phone] and ask to have the doctor exploration geologist paged. If you consider this an emergency, dial [phone] or go to your nearest emergency department. NEED HELP? Are you dealing with a violent or abusive relationship? Are you a victim of rape or sexual assult? Call [facility] ([facility] 24 hour Crisis Hotline: 459.102.8262 or 243-259-4723. MANUAL Your Guide to a Healthy manual is now on-line. Visit [email or web address] [email or web address] to download your free copy In person and online childbirth options: 1) [facility] Online Virtual Childbirth and Class. -Please call to register and for more information: [phone] and register for our online classes they are $40 for both or $20 for just the class ?? 2) [facility] Online Childbirth Education, , and classes: [email or web address] 3) Here is a list of online childbirth education and resources. [facility] has online childbirth, , and parenting classes. [email or web address]://[email or web address] .[email or web address], type in childbirth [email or web address] /childbirth-[email or web address]/ [email or web address] [email or web address]/ documented in this encounter [facility] 07-01-2023 Miscellaneous Notes Formattin g of this note might be different from the original. S: Morgan Smith is a 23 year old female who presents at 20.3 weeks gestation for a routine visit. Just completed anatomy US- awaiting final results. Feeling good movement. Denies headache, visual changes, chest pain, shortness of breath, vaginal bleeding, leakage of fluid, or dysuria. Feeling well, no complaints. O: See flow sheet Gen: No apparent distress Abd: Gravid, nontender ASSESSMENT/PLAN: 1. 20 weeks gestation of - ICD9: V22.2, ICD10: Z3A.20 (primary diagnosis) - URINE OB DIP B/O - ASA daily- Rx sent 2. Encounter for supervision of normal first in second trimester - ICD9: V22.0, ICD10: Z34.02 P: 1) PTL precautions reviewed and when to call 2) RTO 4 weeks or sooner if needed Connie Sanders APRN.CNM documented in this encounter [facility] 07-01-2023 Instructions Rey Chris Cma - 07/01/2023 1:54 PM EDT SEQUENTIAL SCREENINGS The [facility] offers sequential screenings for women who are interested in screenings for chromosomal abnormalities and certain defects during a . The sequential screen combines ultrasound and blood tests to determine the risk of chromosomal abnormalities, including Down's Syndrome (Trisomy 21) and Trisomy 18, as well as open neural tube defects including spina bifida. Ultrasound examination is performed between 11 weeks and 13 weeks gestational age. Blood tests are drawn after the ultrasound and again later in the between 15 and 21 weeks gestational age. Please let your physician know if you are interested in this testing. It will require an appointment with our community planning technician. This is not an ultrasound performed by a physician in our office during a routine visit. SIGNS AND SYMPTOMS OF LABOR 1. Contractions every 10 minutes or more often 2. Clear, pink, or brownish fluid (water) leaking from vagina 3. Feeling that baby is pushing down, pressure 4. Low, dull backache 5. Cramps that feel like a period 6. Cramps with or without diarrhea If you notice any of the above symptoms, contact our office at [phone] and ask to speak with a nurse. After hours, you can call doctors registry at [phone] OR call [facility] at [phone] and ask to have the doctor exploration geologist paged. If you consider this an emergency, dial [phone] or go to your nearest emergency department. NEED HELP? Are you dealing with a violent or abusive relationship? Are you a victim of rape or sexual assult? Call [facility] ([place]) 24 hour Crisis Hotline: 959.166.5042 or 253-238-1093. MANUAL Your Guide to a Healthy manual is now on-line. Visit [email or web address]/HealthyPre gnancyGuide to download your free copy documented in this encounter [facility] 05-26-2023 Miscellaneous Notes Formattin g of this note might be different from the original. ARBEN-See progress note. Ilene Lucas APRN.CNM documented in this encounter [facility] 05-18-2023 Note HNO ID: [id number] Author: Ilene Lucas APRN.CNM Service: ? Author Type: Director Pharmacy Services Type: Progress Notes Filed: 05/26/2023 1:44 PM Note Text: INITIAL OB ASSESSMENT Belt Loop Maker offered: Patient declines. Obstetric History T3 L3 SAB0 IAB0 Ectopic0 Multiple0 Live Births3 Name of Baby 1: Lucia Date: 02/19/16 GA: 39w0d Delivery: Not recorded Apgar1: Not recorded Apgar5: Not recorded Living: Living Name of Baby 2: Chava Date: 03/21/20 GA: 39w2d Delivery: Vaginal, Spontaneous Apgar1: Not recorded Apgar5: Not recorded Living: Living Name of Baby 3: Nicolás Date: 02/14/22 GA: 38w0d Delivery: Vaginal, Spontaneous Apgar1: Not recorded Apgar5: Not recorded Living: Living Name of Baby 4: Not recorded Date: Not recorded GA: Not recorded Delivery: Not recorded Apgar1: Not recorded Apgar5: Not recorded Living: Not recorded HPI: Morgan is a 23 year old White here to establish Obstetrical Care. Patient's last menstrual period was 02/10/2023 (approximate). from OB Dating Form. Cycles irregular was planned Complaints: None OB History T3 L3 SAB0 IAB0 Ectopic0 Multiple0 Live Births3 Previous history: Prior : never History of 4th degree laceration: No History of shoulder dystocia: No History of Hypertensive disorders including pre-eclampsia, chronic hypertension or gestational hypertension: No History of gestational diabetes: No Patient's Risk Screening for delivery: MEDICAL/PSYCHOSOCIAL HISTORY: History of hemorrhage or bleeding concerns: No Thyroid Disease: No History of chronic hypertension: No History of pre-existing diabetes: No No results found for: ABORHD BMI 26.46 kg/(m2) History of abnormal pap: No Prior treatment for cervical dysplasia: none. History of STDs: None Tobacco use: Yes, smoking 5-6 PPD, down from almost a full pack. Trying to quite. Vaping at times but stopped with . Caffeine use: Yes Drug use: No Alcohol use: No Multivitamin with Folic acid: Yes Protestant or heritage: No Would refuse blood transfusion if medically necessary: No Are you currently employed? Yes, Occupation: [employer] in [place], [place] Do you have any history of depression, anxiety, PTSD, eating disorders or other mood problems: Yes Do you have any safety concerns or history of traumatic events that you would like to discuss with your provider: No How often does this describe you? I don't have enough money to pay my bills: Never Within the past 12 months, have you worried that your food would run out before you had money to buy more: Never In the past 12 months, has lack of reliable transportation kept you from going to medical appointments or work, or from keeping things needed for daily living: Never In the past 12 months, have you had any concerns about having a place to live, or about the condition or quality of your housing: Never Are there any cultural or spiritual needs we should be aware of: No Depression: denies, admits to symptoms of depression. OB Depression and Anxiety Screening- This Encounter (since 05/17/2023) None GENETIC SCREENING: Partner present: No Patient verbalized knowledge of partner family health history: Yes Do you or your partner have any personal or family history of defects not previously discussed: No Do you have history of a complicated by anomaly, genetic condition, or demise: No Marital Status:Committed Relationship Partner: Name: Jeramie, father of last 2 children and this . Age: 33 Occupation: Not Employed Gender: Male History of STDs: None PAST MEDICAL HISTORY Diagnosis Date Anemia Depression Fracture of upper extremity left arm age 10 Headache following intrapartum spinal anesthesia 04/28/2023 depression Trauma PAST SURGICAL HISTORY Procedure Laterality Date APPENDECTOMY PAST SURGICAL HISTORY OF Left x3 on left arm-hardware placed Current Outpatient Medications Medication Sig Dispense Refill prental multivitamin 27 mg iron- 800 mcg tablet Take 1 tablet by mouth once daily. Iron 18 mg tab Take by mouth. No current facility-administered medications for this visit. Allergies As of Date: 05/18/2023 (No Known Allergies) Fully Assessed 05/18/2023 Does patient have penicillin allergy: No REVIEW OF SYSTEMS: GENERAL: Negative for: Fever or Chills HEENT: Negative for: Headache, Impaired Vision, Ringing in Ears, Nosebleeds NECK: Negative for: Swelling, Pain, Stiffness RESPIRATORY: Negative for: Cough, Shortness of breath, Wheezing GASTROINTESTINAL: Negative for: Heartburn, Constipation, Diarrhea, Blood in stool, Vomiting MUSCULOSKELETAL: Negative for: Muscle or joint pain, stiffness, Joint swelling NEUROLOGIC/PSYCHIATRIC: Negative for: Weakness, Paralysis, Numbness, Tingling, Tremor, Anxie (more content not included)... [facility] 05-18-2023 History of Presen t illness Narrative Images from the original note were not included. INITIAL OB ASSESSMENT Belt Loop Maker offered: Patient declines. Obstetric History T3 L3 SAB0 IAB0 Ectopic0 Multiple0 Live Births3 Name of Baby 1: Lucia Date: 02/19/16 GA: 39w0d Delivery: Not recorded Apgar1: Not recorded Apgar5: Not recorded Living: Living Name of Baby 2: Chava Date: 03/21/20 GA: 39w2d Delivery: Vaginal, Spontaneous Apgar1: Not recorded Apgar5: Not recorded Living: Living Name of Baby 3: Nicolás Date: 02/14/22 GA: 38w0d Delivery: Vaginal, Spontaneous Apgar1: Not recorded Apgar5: Not recorded Living: Living Name of Baby 4: Not recorded Date: Not recorded GA: Not recorded Delivery: Not recorded Apgar1: Not recorded Apgar5: Not recorded Living: Not recorded HPI: Morgan is a 23 year old White here to establish Obstetrical Care. Patient's last menstrual period was 02/10/2023 (approximate). from OB Dating Form. Cycles irregular was planned Complaints: None OB History T3 L3 SAB0 IAB0 Ectopic0 Multiple0 Live Births3 Previous history: Prior : never History of 4th degree laceration: No History of shoulder dystocia: No History of Hypertensive disorders including pre-eclampsia, chronic hypertension or gestational hypertension: No History of gestational diabetes: No Patient's Risk Screening for delivery: MEDICAL/PSYCHOSOCIAL HISTORY: History of hemorrhage or bleeding concerns: No Thyroid Disease: No History of chronic hypertension: No History of pre-existing diabetes: No No results found for: ABORHD BMI 26.46 kg/(m^2) History of abnormal pap: No Prior treatment for cervical dysplasia: none. History of STDs: None Tobacco use: Yes, smoking 5-6 PPD, down from almost a full pack. Trying to quite. Vaping at times but stopped with . Caffeine use: Yes Drug use: No Alcohol use: No Multivitamin with Folic acid: Yes Protestant or heritage: No Would refuse blood transfusion if medically necessary: No Are you currently employed? Yes, Occupation: [employer] in [place], [place] Do you have any history of depression, anxiety, PTSD, eating disorders or other mood problems: Yes Do you have any safety concerns or history of traumatic events that you would like to discuss with your provider: No How often does this describe you? I don't have enough money to pay my bills: Never Within the past 12 months, have you worried that your food would run out before you had money to buy more: Never In the past 12 months, has lack of reliable transportation kept you from going to medical appointments or work, or from keeping things needed for daily living: Never In the past 12 months, have you had any concerns about having a place to live, or about the condition or quality of your housing: Never Are there any cultural or spiritual needs we should be aware of: No Depression: denies, admits to symptoms of depression. OB Depression and Anxiety Screening- This Encounter (since 05/17/2023) None GENETIC SCREENING: Partner present: No Patient verbalized knowledge of partner family health history: Yes Do you or your partner have any personal or family history of defects not previously discussed: No Do you have history of a complicated by anomaly, genetic condition, or demise: No Marital Status:Committed Relationship Partner: Name: Jeramie, father of last 2 children and this . Age: 33 Occupation: Not Employed Gender: Male History of STDs: None PAST MEDICAL HISTORY Diagnosis Date Anemia Depression Fracture of upper extremity left arm age 10 Headache following intrapartum spinal anesthesia 04/28/2023 depression Trauma PAST SURGICAL HISTORY Procedure Laterality Date APPENDECTOMY PAST SURGICAL HISTORY OF Left x3 on left arm-hardware placed Current Outpatient Medications Medication Sig Dispense Refill prental multivitamin 27 mg iron- 800 mcg tablet Take 1 tablet by mouth once daily. Iron 18 mg tab Take by mouth. No current facility-administered medications for this visit. Allergies As of Date: 05/18/2023 (No Known Allergies) Fully Assessed 05/18/2023 Does patient have penicillin allergy: No REVIEW OF SYSTEMS: GENERAL: Negative for: Fever or Chills HEENT: Negative for: Headache, Impaired Vision, Ringing in Ears, Nosebleeds NECK: Negative for: Swelling, Pain, Stiffness RESPIRATORY: Negative for: Cough, Shortness of breath, Wheezing GASTROINTESTINAL: Negative for: Heartburn, Constipation, Diarrhea, Blood in stool, Vomiting MUSCULOSKELETAL: Negative for: Muscle or joint pain, stiffness, Joint swelling NEUROLOGIC/PSYCHIATRIC: Negative for: Weakness, Paralysis, Numbness, Tingling, Tremor, Anxiety, Depression, Memory loss SKIN: Negative for: Rash, Itching GENITOURINARY: Negative for: vaginal itching, vaginal discharge, hematuria or dysuria PHYSICAL EXAM: BP 108/66 Ht 5' 3.386 (1.61m) Wt 151 lb 3.2 oz (68.6kg) LMP 02/10/2023 BMI 26.46 kg/(m^2). GENERAL: pleasant in no apparent distress DERMATOLOGY: Normal, without lesions, non-icteric, and non-hirsute NECK: Supple, full range of motion, no adenopathy, and thyroid normal CHEST: Normal inspiratory effort BREAST: soft, non-tender, symmetric, no dominant mass, normal nipple-areolar complex, no lymphadenopathy, and no nipple discharge ABDOMEN: soft, non-tender, and no masses NEURO: alert and oriented x3,exam grossly non-focal PELVIS: External genitalia normal without lesions. Perineal body intact. No vaginal or cervical lesions. Cervix closed. Uterus 16 week size. No adnexal masses or tenderness. Clinical Pelvimetry: Pelvimetry clinically assessed as adequate Limited OB ultrasound exam: not performed 03/31/23: 7w2d, [place]:11/15/2023 OB Risk Screening: Completed, no positive findings documented. SBIRT Morgan Smith was given the 4P's screening tool. Morgan answered as follows: OB Opioid Screening - Last Recorded (since 08/21/2022) Did any of your parents have a problem with alcohol or other drug use? Yes DAD-ETOH and DRUGS Does your partner have a problem with alcohol or other drug use? No In the past, have you had difficulties in your life because of alcohol or other drugs, including prescription medications? No In the past month have you drunk any alcohol or used other drugs? No Are you taking medication for pain during the either prescribed or not? No Based on the screen and further questions, she is considered at Low risk due to:No past or current use. Positive reinforcement of current behavior. Plan to rescreen early third trimester. Ilene Lucas APRN.CNM ASSESSMENT: 23 year old at 13w6d wks gestational age PLAN: 1) Patient oriented to practice. Patient given new OB orientation folder. Discussed nutrition, folic acid supplementation, dietary guidelines, exercise, smoking, alcohol, caffeine, and drug use. Discussed gestational weight gain guidelines. Discussed routine OB labs including STD/HIV. Discussed how to access Your guide to a health and the Log Preparer. Discussed aneuploidy and carrier screening. Regarding aneuploidy screening, nuchal translucency/first trimester early anatomy ultrasound and NIPT were discussed. Regarding carrier screening, the myriad screen was discussed. The risks/benefits and limitations of NIPT/aneuploidy screening were reviewed including the potential for false negative and false positive results. We discussed the availability of professional-society guided carrier screening and reviewed the conditions screened and limitations of screening. The availability of genetic counseling was reviewed. Information on aneuploidy/carrier screening was provided. The patient chooses: Aneuploidy screening: declines screening and Carrier screening: Declines Discussed hemoglobin electrophoresis. Patient: Accepts Reviewed midwifery and beam doffer services that are available. 2) Consult women's behavioral health for depression. 3) Unsure LMP, unplanned . Dating US soonest appointment. 4) Anatomy US at 20 weeks Follow up in 4 weeks or sooner prn. Ilene Lucas APRN.CNM documented in this encounter [facility] 05-18-2023 Instructions Kathleen Van Ma - 05/18/2023 12:56 PM EDT Please select the following link to access the [facility] Your Guide to a Healthy . [email or web address] documented in this encounter [facility] 04-28-2023 Note HNO ID: [id number] Author: Shae Smith RN Service: ? Author Type: ? Type: Progress Notes Filed: 04/28/2023 5:10 PM Note Text: # 1 - Date: 02[birth year]19/16, Sex: Female, Weight: 7 lb 14 oz (3.572 kg), GA: 39w0d, Delivery: None, Apgar1: None, Apgar5: None, Living: Living, Comments: had some tearing that was repaired # 2 - Date: 03/21/20, Sex: Male, Weight: 8 lb (3.629 kg), GA: 39w2d, Delivery: Vaginal, Spontaneous, Apgar1: None, Apgar5: None, Living: Living, Comments: Elective Pit induction-went in for c section due to breech and baby changed position so induction was done # 3 - Date: 02/14/22, Sex: Male, Weight: 7 lb 12 oz (3.515 kg), GA: 38w0d, Delivery: Vaginal, Spontaneous, Apgar1: None, Apgar5: None, Living: Living, Comments: Pit aug,AROM anemia, spinal headache-blood patch # 4 - Date: None, Sex: None, Weight: None, GA: None, Delivery: None, Apgar1: None, Apgar5: None, Living: None, Comments: None [facility] 04-28-2023 History of Presen t illness Narrative # 1 - Date: 02/19/16, Sex: Female, Weight: 7 lb 14 oz (3.572 kg), GA: 39w0d, Delivery: None, Apgar1: None, Apgar5: None, Living: Living, Comments: had some tearing that was repaired # 2 - Date: 03/21/20, Sex: Male, Weight: 8 lb (3.629 kg), GA: 39w2d, Delivery: Vaginal, Spontaneous, Apgar1: None, Apgar5: None, Living: Living, Comments: Elective Pit induction-went in for c section due to breech and baby changed position so induction was done # 3 - Date: 02/14/22, Sex: Male, Weight: 7 lb 12 oz (3.515 kg), GA: 38w0d, Delivery: Vaginal, Spontaneous, Apgar1: None, Apgar5: None, Living: Living, Comments: Danny stein,AROM anemia, spinal headache-blood patch # 4 - Date: None, Sex: None, Weight: None, GA: None, Delivery: None, Apgar1: None, Apgar5: None, Living: None, Comments: None documented in this encounter [facility] 04-28-2023 Miscellaneous Notes Formattin g of this note might be different from the original. DISTANCE HEALTH VISIT This Team Access Model visit is a phone encounter. It required patient-provider interaction for the medical decision making as documented below. Father of the baby involved. He is the father of her last 2 children. She delivered her other 3 children in [place]. Some information is available in care everywhere. I have asked her to contact [facility] in [place] and ask for her delivery operative reports to be faxed here. Our fax number was provided to the patient. Records sent to Dr. Castellon's office for review. Patient was seen at [facility] on March 31 for pelvic pain. An ultrasound was done that revealed intrauterine at 7 weeks 2 days. Patient states she occasionally notes cramping when she gets up too fast from a sitting to a standing position. Denies any bleeding this . Noted on ultrasound was a possible small subchorionic hemorrhage. Patient has complaints of noted shortness of breath, heart racing and skipping beats for the past 2 months. She states that she is also noted her feet and hands get numb periodically for the last 6 months. I have advised her to see her PCP as soon as possible to get this evaluated. See phone note dated April 28.Pt has a history of depression diagnosed at age 11. She has been off medication for 2 years. She believes she is doing well off medication. She states she had depression after every delivery. She states she has seen a counselor in the past.. Discussed increased risks of depression during and and importance of reporting the development or worsening of symptoms should they occur. Pt dates she has suicidal thoughts in the past but none since 2016. Patient notes that she has a spinal headache after one of her pregnancies and got a blood patch. Patient considering aneuploidy screening. Contact information for integrated genetics given to patient to check insurance coverage. Patient declined genetic carrier screening testing.Shae Smith RN documented in this encounter [facility] 04-28-2023 Miscellaneous Notes Formattin g of this note might be different from the original. Pt scheduled for 05/02/23. Nancy Field LPN Agree with PCP eval Patient had prenew OB appointment on the telephone today. She is 11 weeks. New to [facility]. Somebody had previously placed a hold on Dr. Castellon's May 02 1:30 PM time for a new OB for her. I am sending financial counselor a note to okay appointment. Please watch for approval so we can schedule her.Also Dr Castellon patient is new to [facility]. She states that she has noted shortness of breath, heart racing and skipping beats for the past 2 months. She states that she is also noted her feet and hands get numb periodically for the last 6 months. I have advised her to see her PCP as soon as possible to get this evaluated. Please let me know if there is further advice documented in this encounter [facility] 05-07-2021 History of Presen t illness Narrative Patient presents stating that she has not had a menstrual flow since May. Denies any vaginal bleeding or cramps. She has some nausea and breast tenderness for several weeks. [place] [address] [employer] Phone: Evaluation note Constitutional: aler t, orientedRespiratory/Thorax: normal respiratory effort, lungs clear, no wheezes or rhonchiCardiovascular: S1 S2 RRR, no murmursExtremities: no calf tenderness, reflexes 2+ [facility] Diagnosis Encounter for screening for malignant neoplasm of cervix- Primary Screening for malignant neoplasm of the cervix Supervision of other normal , antepartum History of depression [facility] Diagnosis 20 weeks gestation of - Primary state, incidental Encounter for supervision of normal first in second trimester Supervision of normal first [facility] Diagnosis Encounter for anatomic survey- Primary Supervision of other normal , antepartum 20 weeks gestation of state, incidental [facility] Diagnosis 29 weeks gestation of - Primary state, incidental Encounter for supervision of normal first in second trimester Supervision of normal first Need for vaccination Need for prophylactic vaccination and inoculation against unspecified single disease Rh negative state in antepartum period Rhesus isoimmunization affecting management of mother, antepartum condition [facility]* Diagnosis Maternal iron deficiency anemia complicating , third trimester Impaired intestinal absorption Unspecified intestinal malabsorption [facility]* Activity:Return to normal activity as tolerated. * Patient Instructions:Pelvic Rest: DO NOT place anything in vagina until cleared by OB Provider. * Follow-Up - OB Provider:Physician/Dept/Service: Juwan Lorenzana to Schedule in: 2 weeksComments: Blood pressure check * Gold Form - Other Clinicians:Other Clinician Instructions: Any woman can have complications after the of a baby including a blood clot, a heart problem, hypertensive disorder/eclampsia, depression, hemorrhage, or infection. Notify all providers of your delivery date up to one year after .* Call 911 or go to nearest emergency room right away if you have: PAIN or pressure in chest; OBSTRUCTED breathing or shortness of breath; SEIZURES; THOUGHTS of hurting yourself or your baby; heart palpitations/racing; change in alertness/confusion.Call your provider if you have: BLEEDING, soaking t hrough a pad/hour, or blood clots the size of an egg or bigger; INCISION (episiotomy stitches or site) that is not healing (increased redness, pain, drainage/pus, or separation); RED or swollen leg/calf that is painful or warm to touch, especially in one leg more than the other; TEMPERATURE of 100.4 F or higher or chills; HEADACHE that does not get better with medicine, rest or hydration, or bad headache with vision changes like spots or flashing lights; increased swelling of face, hands or legs; severe cramps or upper right belly pain; red or swollen breast that is painful or warm to touch; an unusual, foul odor from your vaginal discharge; pain, burning, or difficulty during urination; severe constipation (more than 5 days); feelings of depression (such as depressed mood, lossof interest in enjoyable things, unable to care for yourself, trouble sleeping, lack of appetite, or feeling worthless). If you can t reach your provider or symptoms worsen, call 911 or go to [facility] room. *Information obtained from LILY s: Save Your Life: Get Care for These POST- Warning SignsOn Behalf on the [facility], Congratulations on your . It was our pleasure to take care of you and your during your stay. We hope during this stay that we have exceeded all of your expectations. We will be calling you in a few days to check up on you and your infant. Please allow us to speak with you and please ask questions or let us know if you have any concerns. Again, Congratulations![facility] Regards,[facility] (narrative)* Diagnostic Procedure Only (Routine) - Authorized Specialty Diagnoses / Procedures Referred By Contsheryl t Referred To Contact [facility] Diagnoses Supervision of other normal , antepartum Procedures OBSTETRIC ULTRASOUND WHI US PREG UTERUS AFTER 1ST TRIMEST GESTATION Ilene Lucas APRN.CNM [address] [place] [address] [facility] [address] [place] [address] Referral ID Status Reason Start Date Expiration Date Visits Requested Visits Authorized [id number] Authorized Auto-Generat ed Referral 05/18/2023 05/17/2024 1 1 [facility] Summary Purpose Family History No Family History Records Found Grandparent Name Dates Details Family history of Anxiety(30 0.00, F41.9) Status:Active Family history of depression (V17.0, Z81.8) Status:Active Family history of diabetes m ellitus(V18.0, Z83.3) Status:Active Family history of hypertensi on(V17.49, Z82.49) Status:Active Family history of migraine h eadaches(V17.2, Z82.0) Status:Active Father Name Dates Details Family history of depression (V17.0, Z81.8) Status:Active Grandparent Name Dates Details Family history of Anxiety(30 0.00, F41.9) Status:Active Family history of depression (V17.0, Z81.8) Status:Active Family history of diabetes m ellitus(V18.0, Z83.3) Status:Active Family history of hypertensi on(V17.49, Z82.49) Status:Active Family history of migraine h eadaches(V17.2, Z82.0) Status:Active Father Name Dates Details Family history of depression (V17.0, Z81.8) Status:Active Grandparent Name Dates Details Family history of Anxiety(30 0.00, F41.9) Status:Active Family history of depression (V17.0, Z81.8) Status:Active Family history of diabetes m ellitus(V18.0, Z83.3) Status:Active Family history of hypertensi on(V17.49, Z82.49) Status:Active Family history of migraine h eadaches(V17.2, Z82.0) Status:Active Father Name Dates Details Family history of depression (V17.0, Z81.8) Status:Active Grandparent Name Dates Details Family history of Anxiety(30 0.00, F41.9) Status:Active Family history of depression (V17.0, Z81.8) Status:Active Family history of diabetes m ellitus(V18.0, Z83.3) Status:Active Family history of hypertensi on(V17.49, Z82.49) Status:Active Family history of migraine h eadaches(V17.2, Z82.0) Status:Active Father Name Dates Details Family history of depression (V17.0, Z81.8) Status:Active Grandparent Name Dates Details Family history of Anxiety(30 0.00, F41.9) Status:Active Family history of depression (V17.0, Z81.8) Status:Active Family history of diabetes m ellitus(V18.0, Z83.3) Status:Active Family history of hypertensi on(V17.49, Z82.49) Status:Active Family history of migraine h eadaches(V17.2, Z82.0) Status:Active Father Name Dates Details Family history of depression (V17.0, Z81.8) Status:Active Grandparent Name Dates Details Family history of Anxiety(30 0.00, F41.9) Status:Active Family history of depression (V17.0, Z81.8) Status:Active Family history of diabetes m ellitus(V18.0, Z83.3) Status:Active Family history of hypertensi on(V17.49, Z82.49) Status:Active Family history of migraine h eadaches(V17.2, Z82.0) Status:Active Father Name Dates Details Family history of depression (V17.0, Z81.8) Status:Active Grandparent Name Dates Details Family history of Anxiety(30 0.00, F41.9) Status:Active Family history of depression (V17.0, Z81.8) Status:Active Family history of diabetes m ellitus(V18.0, Z83.3) Status:Active Family history of hypertensi on(V17.49, Z82.49) Status:Active Family history of migraine h eadaches(V17.2, Z82.0) Status:Active Father Name Dates Details Family history of depression (V17.0, Z81.8) Status:Active Grandparent Name Dates Details Family history of Anxiety(30 0.00, F41.9) Status:Active Family history of depression (V17.0, Z81.8) Status:Active Family history of diabetes m ellitus(V18.0, Z83.3) Status:Active Family history of hypertensi on(V17.49, Z82.49) Status:Active Family history of migraine h eadaches(V17.2, Z82.0) Status:Active Father Name Dates Details Family history of depression (V17.0, Z81.8) Status:Active Grandparent Name Dates Details Family history of Anxiety(30 0.00, F41.9) Status:Active Family history of depression (V17.0, Z81.8) Status:Active Family history of diabetes m ellitus(V18.0, Z83.3) Status:Active Family history of hypertensi on(V17.49, Z82.49) Status:Active Family history of migraine h eadaches(V17.2, Z82.0) Status:Active Father Name Dates Details Family history of depression (V17.0, Z81.8) Status:Active Grandparent Name Dates Details Family history of Anxiety(30 0.00, F41.9) Status:Active Family history of depression (V17.0, Z81.8) Status:Active Family history of diabetes m ellitus(V18.0, Z83.3) Status:Active Family history of hypertensi on(V17.49, Z82.49) Status:Active Family history of migraine h eadaches(V17.2, Z82.0) Status:Active Father Name Dates Details Family history of depression (V17.0, Z81.8) Status:Active Unknown Family Member Name Dates Details Anxiety: Grandparent Status:Active Family history of depression : Father, Grandparent(V17.0, Z81.8) Status:Active Family history of diabetes m ellitus: Grandparent(V18.0, Z83.3) Status:Active Family history of hypertensi on: Grandparent(V17.49, Z82.49) Status:Active Family history of migraine h eadaches: Grandparent(V17.2, Z82.0) Status:Active Unknown Family Member Name Dates Details Anxiety: Grandparent Status:Active Family history of depression : Father, Grandparent(V17.0, Z81.8) Status:Active Family history of diabetes m ellitus: Grandparent(V18.0, Z83.3) Status:Active Family history of hypertensi on: Grandparent(V17.49, Z82.49) Status:Active Family history of migraine h eadaches: Grandparent(V17.2, Z82.0) Status:Active Unknown Family Member Name Dates Details Anxiety: Grandparent Status:Active Family history of depression : Father, Grandparent(V17.0, Z81.8) Status:Active Family history of diabetes m ellitus: Grandparent(V18.0, Z83.3) Status:Active Family history of hypertensi on: Grandparent(V17.49, Z82.49) Status:Active Family history of migraine h eadaches: Grandparent(V17.2, Z82.0) Status:Active Unknown Family Member Name Dates Details Anxiety: Grandparent Status:Active Family history of depression : Father, Grandparent(V17.0, Z81.8) Status:Active Family history of diabetes m ellitus: Grandparent(V18.0, Z83.3) Status:Active Family history of hypertensi on: Grandparent(V17.49, Z82.49) Status:Active Family history of migraine h eadaches: Grandparent(V17.2, Z82.0) Status:Active Unknown Family Member Name Dates Details Anxiety: Grandparent Status:Active Family history of depression : Father, Grandparent(V17.0, Z81.8) Status:Active Family history of diabetes m ellitus: Grandparent(V18.0, Z83.3) Status:Active Family history of hypertensi on: Grandparent(V17.49, Z82.49) Status:Active Family history of migraine h eadaches: Grandparent(V17.2, Z82.0) Status:Active Unknown Family Member Name Dates Details Anxiety: Grandparent Status:Active Family history of depression : Father, Grandparent(V17.0, Z81.8) Status:Active Family history of diabetes m ellitus: Grandparent(V18.0, Z83.3) Status:Active Family history of hypertensi on: Grandparent(V17.49, Z82.49) Status:Active Family history of migraine h eadaches: Grandparent(V17.2, Z82.0) Status:Active Unknown Family Member Name Dates Details Anxiety: Grandparent Status:Active Family history of depression : Father, Grandparent(V17.0, Z81.8) Status:Active Family history of diabetes m ellitus: Grandparent(V18.0, Z83.3) Status:Active Family history of hypertensi on: Grandparent(V17.49, Z82.49) Status:Active Family history of migraine h eadaches: Grandparent(V17.2, Z82.0) Status:Active Unknown Family Member Name Dates Details Anxiety: Grandparent Status:Active Family history of depression : Father, Grandparent(V17.0, Z81.8) Status:Active Family history of diabetes m ellitus: Grandparent(V18.0, Z83.3) Status:Active Family history of hypertensi on: Grandparent(V17.49, Z82.49) Status:Active Family history of migraine h eadaches: Grandparent(V17.2, Z82.0) Status:Active Unknown Family Member Name Dates Details Anxiety: Grandparent Status:Active Family history of depression : Father, Grandparent(V17.0, Z81.8) Status:Active Family history of diabetes m ellitus: Grandparent(V18.0, Z83.3) Status:Active Family history of hypertensi on: Grandparent(V17.49, Z82.49) Status:Active Family history of migraine h eadaches: Grandparent(V17.2, Z82.0) Status:Active Unknown Family Member Name Dates Details Anxiety: Grandparent Status:Active Family history of depression : Father, Grandparent(V17.0, Z81.8) Status:Active Family history of diabetes m ellitus: Grandparent(V18.0, Z83.3) Status:Active Family history of hypertensi on: Grandparent(V17.49, Z82.49) Status:Active Family history of migraine h eadaches: Grandparent(V17.2, Z82.0) Status:Active Unknown Family Member Name Dates Details Anxiety: Grandparent Status:Active Family history of depression : Father, Grandparent(V17.0, Z81.8) Status:Active Family history of diabetes m ellitus: Grandparent(V18.0, Z83.3) Status:Active Family history of hypertensi on: Grandparent(V17.49, Z82.49) Status:Active Family history of migraine h eadaches: Grandparent(V17.2, Z82.0) Status:Active Unknown Family Member Name Dates Details Family history of migraine h eadaches: Grandparent(V17.2, Z82.0) Status:Active Family history of hypertensi on: Grandparent(V17.49, Z82.49) Status:Active Family history of diabetes m ellitus: Grandparent(V18.0, Z83.3) Status:Active Family history of depression : Father, Grandparent(V17.0, Z81.8) Status:Active Anxiety: Grandparent Status:Active Unknown Family Member Name Dates Details Family history of migraine h eadaches: Grandparent(V17.2, Z82.0) Status:Active Family history of hypertensi on: Grandparent(V17.49, Z82.49) Status:Active Family history of diabetes m ellitus: Grandparent(V18.0, Z83.3) Status:Active Family history of depression : Father, Grandparent(V17.0, Z81.8) Status:Active Anxiety: Grandparent Status:Active Unknown Family Member Name Dates Details Anxiety: Grandparent Status:Active Family history of depression : Father, Grandparent(V17.0, Z81.8) Status:Active Family history of diabetes m ellitus: Grandparent(V18.0, Z83.3) Status:Active Family history of hypertensi on: Grandparent(V17.49, Z82.49) Status:Active Family history of migraine h eadaches: Grandparent(V17.2, Z82.0) Status:Active Unknown Family Member Name Dates Details Anxiety: Grandparent Status:Active Family history of depression : Father, Grandparent(V17.0, Z81.8) Status:Active Family history of diabetes m ellitus: Grandparent(V18.0, Z83.3) Status:Active Family history of hypertensi on: Grandparent(V17.49, Z82.49) Status:Active Family history of migraine h eadaches: Grandparent(V17.2, Z82.0) Status:Active Unknown Family Member Name Dates Details Anxiety: Grandparent Status:Active Family history of depression : Father, Grandparent(V17.0, Z81.8) Status:Active Family history of diabetes m ellitus: Grandparent(V18.0, Z83.3) Status:Active Family history of hypertensi on: Grandparent(V17.49, Z82.49) Status:Active Family history of migraine h eadaches: Grandparent(V17.2, Z82.0) Status:Active Advance Directives No Advanced Directives Records FoundNo Advanced Directives Records FoundNo Advanced Directives Records FoundNo Advanced Directives Records FoundNo Advanced Directives Records FoundNo Advanced Directives Records Found Chief Complaint Patient is here due to amenorrhea. LMP: 05/24/2021. Patient states her last period was not a normal one for her, she states it only lasted 1 day and was very light. Normally her periods last 5 days. Patient c/o nausea and breast tenderness. Additional Source Comments INFORMATION SOURCE (unrecogn ized section and content) DATE CREATED AUTHOR AUTHOR'S ORGANIZ ATION 06/28/2021 [facility] DATE CREATED AUTHOR AUTHOR'S ORGANIZ ATION 07/21/2021 [facility] DATE CREATED AUTHOR AUTHOR'S ORGANIZ ATION 09/04/2022 [facility] DATE CREATED AUTHOR AUTHOR'S ORGANIZ ATION 04/15/2023 [facility] DATE CREATED AUTHOR AUTHOR'S ORGANIZ ATION 09/20/2023 [facility] <item><item><item><item> Privacy Markings (unrecogniz ed section and content) Section Author: Maude Ngo PROHIBITION ON REDISCLOSURE OF CONFIDENTIAL INFORMATION This notice accompanies a disclosure of information concerning a client made to you with the consent of such client. Section Author: Maude Ngo PROHIBITION ON REDISCLOSURE OF CONFIDENTIAL INFORMATION This notice accompanies a disclosure of information concerning a client made to you with the consent of such client. Section Author: Maude Ngo PROHIBITION ON REDISCLOSURE OF CONFIDENTIAL INFORMATION This notice accompanies a disclosure of information concerning a client made to you with the consent of such client. Section Author: Maude Ngo PROHIBITION ON REDISCLOSURE OF CONFIDENTIAL INFORMATION This notice accompanies a disclosure of information concerning a client made to you with the consent of such client. Source Comments (unrecognize d section and content) In the event this informatio n is protected by the Federal Confidentiality of Alcohol and Drug Abuse Patient Records regulations: The Federal rules restrict any use of the information to criminally investigate or prosecute any alcohol or drug abuse patient.[facility] HospitalIn the event this information is protected by the Federal Confidentiality of Alcohol and Drug Abuse Patient Records regulations: The Federal rules restrict any use of the information to criminally investigate or prosecute any alcohol or drug abuse patient.[facility] HospitalIn the event this information is protected by the Federal Confidentiality of Alcohol and Drug Abuse Patient Records regulations: The Federal rules restrict any use of the information to criminally investigate or prosecute any alcohol or drug abuse patient.[facility] HospitalIn the event this information is protected by the Federal Confidentiality of Alcohol and Drug Abuse Patient Records regulations: The Federal rules restrict any use of the information to criminally investigate or prosecute any alcohol or drug abuse patient.[facility] HospitalIn the event this information is protected by the Federal Confidentiality of Alcohol and Drug Abuse Patient Records regulations: The Federal rules restrict any use of the information to criminally investigate or prosecute any alcohol or drug abuse patient.[facility] HospitalIn the event this information is protected by the Federal Confidentiality of Alcohol and Drug Abuse Patient Records regulations: The Federal rules restrict any use of the information to criminally investigate or prosecute any alcohol or drug abuse patient.[facility] HospitalIn the event this information is protected by the Federal Confidentiality of Alcohol and Drug Abuse Patient Records regulations: The Federal rules restrict any use of the information to criminally investigate or prosecute any alcohol or drug abuse patient.[facility] HospitalIn the event this information is protected by the Federal Confidentiality of Alcohol and Drug Abuse Patient Records regulations: The Federal rules restrict any use of the information to criminally investigate or prosecute any alcohol or drug abuse patient.[facility] HospitalIn the event this information is protected by the Federal Confidentiality of Alcohol and Drug Abuse Patient Records regulations: The Federal rules restrict any use of the information to criminally investigate or prosecute any alcohol or drug abuse patient.[facility] Reason for Visit (unrecogniz ed section and content) Reason Comments Care Specialty Diagnoses / Procedures Referred By Contac t 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 Diagnoses PNOB Procedures PNOB Self [employer] [address] [place] [address] Referral ID Status Reason Start Date Expiration Date Visits Requested Visits Authorized [id number] Authorized Financial Clearance Required - Self Pay Patient Cleared - Qualified 100% FAS 2023 07/24/2023 99 99 Reason Comments Initial OB Visit Specialty Diagnoses / Procedures Referred By Contac t 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 Diagnoses PNOB Procedures PNOB Self [employer] [address] [place] [address] Referral ID Status Reason Start Date Expiration Date V isits Requested Visits Authorized [id number] Closed Financial Clearance Required - Self Pay Patient Cleared - Qualified 100% FAS 2023 07/24/2023 99 99 Reason Onset Date Comments Care 07/01/2023 Reason Comments US Specialty Diagnoses / Procedures Referred By Contac t Referred To Contact [facility] Diagnoses Supervision of other normal , antepartum Procedures OBSTETRIC ULTRASOUND WHI US PREG UTERUS AFTER 1ST TRIMEST GESTATION Ilene Lucas APRN.CNM [address] [place] [address] [facility] [address] [place] [address] Referral ID Status Reason Start Date Expiration Date V isits Requested Visits Authorized [id number] Closed Auto-Generate d Referral 05/18/2023 05/17/2024 1 1 Reason Onset Date Comments Care 09/05/2023 Reason Comments Blood Management FOR RECORDS PERTAINING TO PATIENTS WHO ARE OR HAVE BEEN ENROLLED IN A CHEMICAL DEPENDENCY/SUBSTANCEABUSE PROGRAM, SOME INFORMATION MAY BE OMITTED. This clinical summary was aggregated from multiple sources. Caution should be exercised in using it in the provision of clinical care. This summary normalizes information from multiple sources, and as a consequence, information in this document may materially change the coding, format and clinical context of patient data. In addition, data may be omitted in some cases. CLINICAL DECISIONS SHOULD BE BASED ON THE PRIMARY CLINICAL RECORDS. [facility]. provides no warranty or guarantee of the accuracy or completeness of information in this document.
[2023-10-08 23:46] VITALS: BP 127/68; PULSE 104; TEMP 36.7
[2023-10-09 00:01] VITALS: BMI 30.9
[2023-10-09 00:44] LABS: ROM Internal Control Test YES-OK TO RESULT pt. (Internal QC); ROM Patient Test Negative (Negative); Record Kit Lot#, ROM+ K1409
--- NOTE | 2023-11-09 18:27 | OB.TRI.PN ---
Progress Notes Progress Note: with [facility]ORRO 11/15/23 presents for headache, nausea, back pain and vaginal discharge. Concerned about leakage of fluid. Laboratory Studies: Laboratory Tests 10/09/23 Range/Units 00:12 Vag Amniotic Fld Detect Negative (Negative) NST 135, moderate variability, accels , no decels, no contractions ROM negative Assessment & Plan (1) Vaginal discharge: PLAN: Plan 1) No signs of preeclampsia, vital signs stable 2) ROM negative 3) PTL precautions to be reviewed 4) D/C home
== END 2023-10-09 01:21 | disposition home or self-care (01) ==
LOC: WPOUT 23:37 → WP 23:39
PROVIDERS: Referring Provider Advanced Practice Midwife; Visit Provider Advanced Practice Midwife
DX: O99.891 Other specified diseases and conditions complicating pregnancy (principal); N89.8 Other specified noninflammatory disorders of vagina; Z3A.00 Weeks of gestation of pregnancy not specified
CPT/HCPCS: 59025; 59050; 84112

== ENCOUNTER 2023-10-25 17:10 | Outpatient (CLI) | payer BC, SELFPAY ==
[2023-10-25 17:31] VITALS: BP 130/74; PULSE 96
[2023-10-25 17:32] VITALS: TEMP 37.5; O2SAT 98
[2023-10-25 17:36] VITALS: BP 123/71; PULSE 102; PULSE 97; O2SAT 99
[2023-10-25 18:03] VITALS: BMI 31.6
--- NOTE | 2023-10-27 12:46 | OB.TRI.HP_ITS ---
HPI - General General Date of Admission: 10/25/23 Date of Service: 10/25/23 Chief Complaint: contractions HPI Narrative KATIE SMITH, is a 23 F who presents at 37 weeks w/ ctx.s [facility] Medical History (Updated 10/27/23 @ 09:[address] Rhona Carpio MD) depression Home Medications vit no.95-ferrous fumarate 28 mg-folic acid 800 mcg tablet () 1 tab PO DAILY 08/16/23 [History Last Taken 10/09/23] ferrous sulfate 325 mg (65 mg iron) tablet (Feosol) 325 mg PO DAILY 10/09/23 [History Last Taken 10/09/23] Allergy/AdvReac Type Severity Reaction Status Date / Time No Known Allergies Allergy Verified 10/27/23 03:11 Surgical History (Updated 10/27/23 @ 03:32 by Nallely Meadows) History of surgery Social History Smoking Status: Heavy Smoker (>10/day) History Elective abortions Hx Para 3 Spontaneous abortions Hx # Term Pregnancies Ectopic pregnancies Hx # Pregnancies Multiple births # of living children NST FHR Rate Baby B Baseline: 120 Variability:: Moderate Accelerations:: 15 x 15 Decelerations:: Variable NST Reactive:: Yes FHR Category:: Category I (before d/c) Uterine Activity:: no regular ctxs
== END 2023-10-25 18:45 | disposition home or self-care (01) ==
LOC: WPOUT 17:20 → WP 17:21
PROVIDERS: Referring Provider Obstetrics & Gynecology; Visit Provider Obstetrics & Gynecology
DX: O47.1 False labor at or after 37 completed weeks of gestation (principal); O99.333 Smoking (tobacco) complicating pregnancy, third trimester; F17.200 Nicotine dependence, unspecified, uncomplicated; Z3A.37 37 weeks gestation of pregnancy
CPT/HCPCS: 59025; 59050; 99221; G0378

== ENCOUNTER 2023-10-27 03:15 | Inpatient (IN) | payer BC, MEDICAID, SELFPAY ==
[2023-10-27] VITALS (36 sets, daily range): BP systolic 92–200; BP diastolic 55–104; PULSE 77–121; RESP 16; TEMP 36.2–37.4; O2SAT 80–100; BMI 32.2
[2023-10-27] MEDS: Lactated Ringers 1,000 ML 200 ML IV (03:30)
[2023-10-27 03:50] LABS: Absolute Lymphocyte Count 3.79 X10^3/uL (0.83-4.51); Absolute Neutrophil Count 10.3 X10^3/uL (2.0-7.7); Basophil# 0.03 X10^3/uL; Basophil% 0.2 % (0-1); Eosinophil# 0.23 X10^3/uL; Eosinophils% 1.5 % (0-5); Hematocrit 28.2 % (37-47); Hemoglobin 8.3 g/dL (12.0-15.0); Lymphocyte # 3.79 X10^3/ul (0.83-4.51); Lymphocyte % 24.8 % (19-41); Mean Corp Hgb Conc 29.4 g/dL (32-36); Mean Corpuscular Hgb 22.8 pg (27.0-32.0); Mean Corpuscular Volume 77.5 fL (81-99); Mean Platelet Vol. 10.1 fl (6.2-12.0); Monocyte# 0.88 X10^3/uL; Monocyte% 5.8 % (0-10); NRBC Flagged by Analyzer 0 % (0-5); Neutrophil # 10.25 X10^3/uL (2.7-7.7); Neutrophil % 66.9 % (47-70); Platelet Count 274 K/mm3 (150-450); RBC Distribution Width CV 17.2 % (11.6-14.6); Red Blood Count 3.64 M/mm3 (4.2-5.4); White Blood Count 15.3 K/mm3 (4.4-11.0)
[2023-10-27 04:33] LABS: Syphilis Antibodies Non-reactive
[2023-10-27 05:18] LABS: Group B Strep DNA By PCR Negative (Negative); Internal Control PASS; Probe Check PASS; Specimen Processing Control PASS
[2023-10-27] MEDS: fentaNYL 100 MCG/2 ML Ampul IV (05:27)
[2023-10-27] MEDS: LACTATED RINGERS 500 ML 999 ML IV (06:45)
[2023-10-27] MEDS: fentaNYL-bupivacaine (epidural) 100 ML BAG EPIDURAL (07:54)
[2023-10-27] MEDS: Oxytocin 10 UNITS/ML Vial IM (08:19)
[2023-10-27] MEDS: Oxytocin 15 Units/NS 250ml 15 UNITS/250 ML IV.SOLN 83 UNITS IV (08:20)
--- NOTE | 2023-10-27 09:38 | PCM.HP.OB ---
HPI - General General Date of Admission: 10/27/23 Date of Service: 10/27/23 HPI Narrative KATIE SMITH, is a 23 F @ 37 wks who presents c/o SROM at 2am and contractions- pt found to be ruptured and 4-5cm on arrival with regular contractions. PFSH PFS Medical History (Updated 10/27/23 @ 09:[address] Rhona Carpio MD) depression Home Medications vit no.95-ferrous fumarate 28 mg-folic acid 800 mcg tablet () 1 tab PO DAILY 08/16/23 [History Last Taken 10/09/23] ferrous sulfate 325 mg (65 mg iron) tablet (Feosol) 325 mg PO DAILY 10/09/23 [History Last Taken 10/09/23] Allergy/AdvReac Type Severity Reaction Status Date / Time No Known Allergies Allergy Verified 10/27/23 03:11 Surgical History (Updated 10/27/23 @ 03:32 by Nallely Meadows) History of surgery Social History Smoking Status: Heavy Smoker (>10/day) History Elective abortions Hx Para 3 Spontaneous abortions Hx # Term Pregnancies Ectopic pregnancies Hx # Pregnancies Multiple births # of living children Vital Signs Vital Signs Vital Signs: 10/27/23 03:07 10/27/23 03:07 10/27/23 03:07 Temperature Temperature Source Pulse Rate 103 H 100 Blood Pressure 133/84 H BP Systolic 133 BP Diastolic 84 Pulse Ox 10/27/23 03:07 10/27/23 03:07 10/27/23 03:07 Temperature 99.3 F H Temperature Source Tympanic Pulse Rate Blood Pressure BP Systolic BP Diastolic Pulse Ox 100 10/27/23 05:02 10/27/23 05:02 10/27/23 05:02 Temperature Temperature Source Temporal Pulse Rate 91 Blood Pressure 128/83 H BP Systolic 128 BP Diastolic 83 Pulse Ox 10/27/23 05:02 10/27/23 05:02 10/27/23 05:54 Temperature 98.3 F Temperature Source Pulse Rate Blood Pressure 121/77 H BP Systolic 121 BP Diastolic 77 Pulse Ox 98 10/27/23 05:54 10/27/23 05:54 10/27/23 05:54 Temperature Temperature Source Temporal Pulse Rate 91 Blood Pressure BP Systolic BP Diastolic Pulse Ox 97 10/27/23 05:54 10/27/23 07:22 10/27/23 07:25 Temperature 98.8 F Temperature Source Pulse Rate Blood Pressure 141/78 H BP Systolic 141 BP Diastolic 78 Pulse Ox 80 10/27/23 07:25 10/27/23 07:25 10/27/23 07:30 Temperature Temperature Source Pulse Rate 121 H Blood Pressure 146/89 H BP Systolic 146 BP Diastolic 89 Pulse Ox 99 10/27/23 07:30 10/27/23 07:30 10/27/23 07:35 Temperature Temperature Source Pulse Rate 115 H Blood Pressure 142/86 H BP Systolic 142 BP Diastolic 86 Pulse Ox 99 10/27/23 07:35 10/27/23 07:35 10/27/23 07:41 Temperature Temperature Source Pulse Rate 120 H Blood Pressure 135/86 H BP Systolic 135 BP Diastolic 86 Pulse Ox 99 10/27/23 07:41 10/27/23 07:40 10/27/23 07:45 Temperature Temperature Source Pulse Rate 112 H Blood Pressure 132/85 H BP Systolic 132 BP Diastolic 85 Pulse Ox 100 10/27/23 07:45 10/27/23 07:45 10/27/23 07:51 Temperature Temperature Source Pulse Rate 104 H Blood Pressure 118/66 BP Systolic 118 BP Diastolic 66 Pulse Ox 99 10/27/23 07:51 10/27/23 07:50 10/27/23 07:55 Temperature Temperature Source Pulse Rate 99 Blood Pressure 116/66 BP Systolic 116 BP Diastolic 66 Pulse Ox 100 10/27/23 07:55 10/27/23 07:55 10/27/23 07:55 Temperature Temperature Source Pulse Rate 99 103 H Blood Pressure BP Systolic BP Diastolic Pulse Ox 100 10/27/23 08:00 10/27/23 08:00 10/27/23 08:01 Temperature Temperature Source Pulse Rate 104 H Blood Pressure 126/64 H BP Systolic 126 BP Diastolic 64 Pulse Ox 100 10/27/23 08:01 10/27/23 08:05 10/27/23 08:05 Temperature Temperature Source Pulse Rate 107 H 107 H Blood Pressure BP Systolic BP Diastolic Pulse Ox 100 10/27/23 08:06 10/27/23 08:06 10/27/23 07:52 Temperature Temperature Source Temporal Pulse Rate 110 H Blood Pressure 106/63 BP Systolic 106 BP Diastolic 63 Pulse Ox 10/27/23 07:52 10/27/23 08:10 10/27/23 08:10 Temperature 98.8 F Temperature Source Pulse Rate 120 H Blood Pressure BP Systolic BP Diastolic Pulse Ox 100 10/27/23 08:12 10/27/23 08:12 10/27/23 08:25 Temperature Temperature Source Pulse Rate 118 H Blood Pressure 200/104 H 130/73 H BP Systolic 200 130 BP Diastolic 104 73 Pulse Ox 10/27/23 08:25 10/27/23 08:34 10/27/23 08:34 Temperature Temperature Source Pulse Rate 108 H 101 H Blood Pressure BP Systolic BP Diastolic Pulse Ox 99 10/27/23 08:40 10/27/23 08:40 10/27/23 08:56 Temperature Temperature Source Pulse Rate 100 Blood Pressure 109/61 115/82 H BP Systolic 109 115 BP Diastolic 61 82 Pulse Ox 10/27/23 08:56 10/27/23 09:11 10/27/23 09:11 Temperature Temperature Source Pulse Rate 99 97 Blood Pressure 121/69 H BP Systolic 121 BP Diastolic 69 Pulse Ox 10/27/23 09:25 10/27/23 09:25 Temperature Temperature Source Pulse Rate 96 Blood Pressure 115/62 BP Systolic 115 BP Diastolic 62 Pulse Ox Weight Weight: 85.1 kg Body Mass Index (BMI) 32.2 Physical Exam Const alert and oriented x3 General Appearance: cooperative HEENT normocephalic GI GI Narrative: Gravid, non tender to palpation. OB / External & Speculum: external exam normal Extremity normal to inspection Skin no rashes or lesions noted Neuro oriented x3 and CN's II-XII intact bilaterally Psych Appearance: grossly normal Labs Labs Labs: Blood Type A NEGATIVE Antibody Screen NEGATIVE Hct 28.2 % (37-47) L Hgb 8.3 g/dL (12.0-15.0) L Syphilis Total Ab Non-reactive Group B Strep DNA Negative (Negative) Assessment & Plan (1) 37 weeks gestation of : (2) Anemia affecting in third trimester: PLAN: Plan Admit to L&D [facility] FHR/TOCO Epidural if requested for pain Monitor VS Anticipate gbs negative
--- NOTE | 2023-10-27 09:43 | EX.PCM.OBRPT ---
Vaginal Delivery Operative Information Date of Procedure: 10/27/23 Pre-Operative Diagnosis: SROM, Active labor- 37 weeks Post-Operative Diagnosis: Same, live male infant Surgery / Procedure Performed: Spontaneous Vaginal Delivery Type of Anesthesia: Epidural Estimated Blood Loss: 50 Time of Delivery: 08:17 Findings Description of Procedure: Patient progressed to fully dilated. Good maternal pushing efforts delivered the infant's head followed by the anterior shoulder and the rest the infant's body. The was placed on the mother's chest for immediate skin to skin. Delayed cord clamping was performed. The cord was then clamped cut. IM and IV Pitocin was started per protocol. The placenta was then delivered intact without complication. No vaginal lacerations or perineal lacerations were appreciated. Presentation: Vertex Amniotic Membrane Rupture Type: Spontaneous Amniotic Fluid Description: Clear Placental Delivery Description: Spontaneous Placenta Disposition: [facility] Cord Vessel Description: 3 Vessels Cord Entanglement: None Infant A Gender: Male (1 minute): 9 (5 minute): 9 Delayed Cord Clamping: Yes Post Vaginal Delivery Medications Given After Delivery: IV Pitocin and IM Pitocin Episiotomy Description: None Laceration: None Complication Complications: None
[2023-10-27] MEDS: Ibuprofen 600 MG Tablet PO (10:55)
[2023-10-27] MEDS: 0.9% Saline Lock 10 ML Syringe IV (11:21)
[2023-10-27] MEDS: Ferrous Sulfate 325 MG Tablet PO (12:55)
[2023-10-27] MEDS: Acetaminophen 500 MG Tablet 1000 MG PO (16:11)
[2023-10-28] MEDS: 0.9% Saline Lock 10 ML Syringe IV ×2 (00:49→08:36)
[2023-10-28 04:00] VITALS: BP 115/81; PULSE 82; RESP 15; TEMP 36.6; O2SAT 98
[2023-10-28] MEDS: Acetaminophen 500 MG Tablet 1000 MG PO (04:37)
[2023-10-28 06:14] LABS: Hematocrit 25.8 % (37-47); Hemoglobin 7.6 g/dL (12.0-15.0); Mean Corp Hgb Conc 29.5 g/dL (32-36); Mean Corpuscular Volume 78.2 fL (81-99); Mean Platelet Vol. 10.6 fl (6.2-12.0); Platelet Count 222 K/mm3 (150-450); RBC Distribution Width CV 17.2 % (11.6-14.6); RBC Distribution Width SD 48.8 fl (35.1-43.9); White Blood Count 17.4 K/mm3 (4.4-11.0)
--- NOTE | 2023-10-28 07:14 | PCM.DC.SUM ---
Providers Date of Admission: 10/27/23 Primary Care Physician: No Primary Care Phys Reason For Visit: VAG DELIVERY Diagnosis Discharge Diagnosis (1) 37 weeks gestation of : Status: Acute Code(s): Z3A.37 - 37 weeks gestation of (2) Anemia affecting in third trimester: Status: Acute Code(s): O99.013 - Anemia complicating , third trimester (3) (spontaneous vaginal delivery): Status: Acute Code(s): O80 - Encounter for full-term uncomplicated delivery (4) depression: Status: Acute Code(s): F53.0 - depression Plan PPD 1 Routine care Hgb 7.6 down from 8.3- asymptomatic IV FE x 1 now Continue oral iron D/C home with follow up in office Medications at Discharge Home Medications vit no.95-ferrous fumarate 28 mg-folic acid 800 mcg tablet () 1 tab PO DAILY 08/16/23 ferrous sulfate 325 mg (65 mg iron) tablet (Feosol) 325 mg PO DAILY 10/09/23 Hospital Course Operations None Procedures None Summary of Care Provided Minutes Spent on Discharge: 15 Hospital Course: Patient had and hospital course was uneventful Physical Exam Narrative Patient seen at bedside. Ambulating and voiding without difficulty. Denies headache, vision changes, SOB, or CP. without difficulty. Desires discharge home today. Const alert and no apparent distress General Appearance: cooperative and comfortable Exam Limitations: no limitations HEENT normocephalic Eyes General Eye: normal appearance of both eyes Neck full ROM General: normal visual inspection Chest Chest: symmetrical chest wall rise Resp normal respiratory effort and normal air movement Effort and Inspection: symmetric chest movement Auscultation: clear to auscultation bilaterally Cardio regular rate and regular rhythm GI normal to inspection, nondistended, normoactive bowel sounds Back/Spine normal ROM Extremity full ROM and no calf tenderness General Extremity: normal exam except as noted Skin no rashes or lesions noted Neuro CN's II-XII intact bilaterally Psych mental status grossly normal Weight / BMI Weight Weight: 187 lb 9.814 oz Body Mass Index (BMI) 32.2 ABG / Lab / Microbiology Data 10/28/23 05:45 Laboratory: Laboratory Results - last 24 hr 10/28/23 05:45: WBC 17.4 H, RBC 3.30 L, Hgb 7.6 L, Hct 25.8 L, MCV 78.2 L, MCH 23.0 L, MCHC 29.5 L, RDW Std Deviation 48.8 H, RDW Coeff of Cindy 17.2 H, Plt Count 222, MPV 10.6 D/C Instructions Discharge Diet: No restrictions May resume sexual activity in: 6-8 weeks Weight Bearing Status: Weight bearing as tolerated Call your doctor if you observe: Fever of 101 or Higher, Inability to urinate, Using more than 1 pad per hour, Shortness of breath, Chest pain, Calf discomfort and Uncontrolled pain Please Follow Up With: Connie Encinas CNM When: 2 weeks virtual visit/ 6 weeks in office Meaningful Use Info Meaningful Use Diagnoses (Choose all that apply): None applicable Discharge Plan Admission Admit Date/Time: 10/27/23 03:15 Primary Reason for Your Visit: Labor and Delivery Attending Provider: Rhona Carpio Primary Care Provider: Care Physician,No Primary Discharge Orders/Prescriptions Prescriptions: Continued PNV cmb#95-ferrous fumarate-FA [] 28 mg iron- 800 mcg tablet 1 tab PO DAILY ferrous sulfate [Feosol] 325 mg (65 mg iron) tablet 325 mg PO DAILY Referrals / Follow Up: Care Physician,No Primary [Primary Care Provider] - Disposition Disposition (needs filled in before D/C Order can be placed): Home, Self Care
[2023-10-28 08:31] VITALS: BP 106/70; PULSE 74; RESP 16; TEMP 36.2
[2023-10-28] MEDS: Iron Sucrose Complex 200 MG in 0.9% Normal Saline (100mL Bag) 100 ML 220 MG IV (08:36)
[2023-10-28] MEDS: Senna/Docusate Sodium 1 Tablet PO (09:49)
[2023-10-28] MEDS: Ferrous Sulfate 325 MG Tablet PO (09:49)
--- NOTE | 2023-10-28 11:18 | CASEMGMT ---
Social Work Assessment Labor and Delivery Unit Patient Address:[address] [place], [place] [address] [address] Phone number: [phone] Date of Referral: 10/27/23 Time of Referral:? [id number] Referred By: Rhona Edge Date of Intervention: ??10/28/23 Time of Intervention:? 1030 Reason for Referral: depression, parent alcoholic and drug abuser Sixto completed chart review and acknowledges social work consult entered due to maternal history of depression and TALA has a parent with history of alcoholism and drug use. Sw presented to bedside and introduced self to mother of baby (TALA- Morgan) and explained sw role. Father of baby (FOB- Jeramie) present but asleep on couch. Sw completed psychosocial assessment and asked MOB to complete [place] Depression Scale. ? History obtained from: medical records, MOB Household composition: MOB states that currently residing in the family home is TALA, SOLOMON, TALA's older daughter (Sidney- 7 years old) and two other children that TALA and FOUyen have together (Larsen- 3 years old and Nathan- 1 year old). MOB states that now baby will also be residing with them. No housing concerns at this time. Patient's parent/guardian status:? ?TALA states that she and FOB met through mutual friends and they have been on and off again for the last 6 years. TALA denies any concerns of domestic violence or intimate partner violence. Medical History: ?TALA is 23 year old female who is 4, para 3- now 4 following labor and delivery of . TALA received routine care during with [facility]. TALA delivered baby on 10/27/23 via vaginal delivery at 37 weeks gestation. Baby boy, named Jordan, was born weighing 6lb 7oz and his apgars were 9 and 9 at one and five minutes of life respectfully. MOB states that she is breast feeding and it is going well. MOB states that baby will be followed by Dr. Gant for pediatrics. Educational Status:? TALA graduated from high school, FOB finished through the 11th grade. 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 SOLOMON is unemployed. Supplies:??TALA states that she has obtained all necessary baby supplies, including: car seat, safe sleep space, clothes, diapers and wipes. Childcare/Caregiver(s):? TALA states that she will be the primary caregiver to baby along with FOB. Transportation:?? No barriers Programs/Agencies Involved: ???Medicaid and SNAP Children Services/Legal Issues:???No history of involvement, no issues or concerns warranting a referral to be made. Behavioral Health Issues: ??Mental Health History:?MOB states that SOLOMON does not have any mental health diagnoses. MOB acknowledges her mental health history being positive for depression. MOB stated that she experienced classical depression symptoms at that time and was disinterested in doing anything. MOB states that if she were to struggle FOB would know how to recognize that she was struggling and would know how to help her. ?MOB states that she was prescribed zoloft previously, but not currently. MOB also states that she used to engage in counseling services, but did not find that they were necessary once she started the zoloft .? Substance Use History: MOB denies substance use prior to and during . ?? Family History:???MOB states that her father is an alcoholic. MOB states that she used to be close to him, but not any more. MOB denies that he would ever be held responsible for caring for baby or any of the other children. ?? Drug Screens: ??No urine screens observed in chart review. Family/Social Stressors:? MOB denies Support Systems: FOB and maternal grandma Depression/Shaken Baby/Safe Sleeping:? Sw educated MOB on signs and symptoms of baby blues and depression./ anxiety. MOB acknowledged understanding. Sw educated MOB on shaken baby prevention and ABCs of safe sleep. MOB expressed understanding. MOB completed [place] Depression Scale and her score was a 6. Sw provided education and literature for MOB to review. ASSESSMENT:? MOB and baby admitted following labor and delivery. MOB talkative and receptive to sw involvement and support. MOB with mental health history and she states that she and FOB would recognize if she were experiencing symptoms during this period. MOB has resources and history of counseling resources. MOB made eye contact throughout conversation. MOB has supports in place and has obtained all necessary baby supplies. PLAN:? MOB and baby to be discharged when medically ready. ?No other services requested or indicated. Swetha Lopez, [employer]ENC[employer]S, IT AUDIT MANAGER
[2023-10-28 12:14] VITALS: BP 113/74; PULSE 90; RESP 16; TEMP 36.6
== END 2023-10-28 13:45 | disposition home or self-care (01) | DRG 560 ==
LOC: WPOUT 03:17 → WP 03:17
PROVIDERS: Admitting Provider Obstetrics & Gynecology; Referring Provider Obstetrics & Gynecology; Visit Provider Obstetrics & Gynecology
DX: O42.02 Full-term premature rupture of membranes, onset of labor within 24 hours of rupture (principal); Z37.0 Single live birth; F17.200 Nicotine dependence, unspecified, uncomplicated; O99.334 Smoking (tobacco) complicating childbirth; O99.02 Anemia complicating childbirth; Z3A.37 37 weeks gestation of pregnancy; Z79.83 Long term (current) use of bisphosphonates; Z87.59 Personal history of other complications of pregnancy, childbirth and the puerperium
CPT/HCPCS: 59025; 59050; 85025; 85027; 86780; 86850; 86900; 86901; 87081; 87653; 99221; J1756; J7120; A4216; G0378

== ENCOUNTER 2023-10-29 13:04 | Emergency (ER) | payer MEDICAID, SELFPAY ==
[2023-10-29 13:05] VITALS: BP 123/80; PULSE 87; RESP 15; TEMP 36.3; O2SAT 100; BMI 29.9
--- NOTE | 2023-10-29 13:19 | EDS_ITS ---
HPI <LAMINE Ascencio - Last Filed: 10/29/23 14:45> History of Present Illness Chief Complaint: Headache Narrative Narrative: 23-year-old female had a vaginal delivery with epidural 2 days ago. Was discharged from [facility] yesterday. States since then she has had a headache which is worse with sitting up. It feels like a spinal headache she had a couple years ago after delivery when she required a blood patch. She tried Tylenol without relief. She has nausea but no vomiting. No fever or chills. States her delivery was otherwise uncomplicated. PFSH <LAMINE Ascencio - Last Filed: 10/29/23 14:45> [facility] Medical History (Updated 10/29/23 @ 14:43 by LAMINE Ascencio) depression Home Medications vit no.95-ferrous fumarate 28 mg-folic acid 800 mcg tablet () 1 tab PO DAILY 08/16/23 [History Last Taken 10/09/23] ferrous sulfate 325 mg (65 mg iron) tablet (Feosol) 325 mg PO DAILY 10/09/23 [History Last Taken 10/09/23] Allergy/AdvReac Type Severity Reaction Status Date / Time No Known Allergies Allergy Verified 10/27/23 03:11 Surgical History History of surgery Social History Smoking Status: Heavy Smoker (>10/day) ROS <LAMINE Ascencio - Last Filed: 10/29/23 14:45> ROS ED ROS Narrative Constitutional: Negative for fever, chills, malaise. Eyes: Negative for visual change. CVS: Negative for chest pain Respiratory: Negative for shortness of breath. GI: Positive for nausea. Neuro: Positive for headache, negative for motor/sensory dysfunction. EXAM <LAMINE Ascencio - Last Filed: 10/29/23 14:45> Physical Exam Narrative Exam Narrative: CONST: Patient sitting in no acute distress. EYES: Normal inspection. PERRL, EOMI. NECK: Normal inspection. RESP: No respiratory distress, CTAB. CVS: Regular rate and rhythm, no murmur, no gallop. SKIN: Color normal, no rash, warm, dry, intact. EXTREMITIES: Normal appearance, no pedal edema. NEURO: Oriented x4. PSYCH: Normal affect. Const Vital Signs: 10/29/23 13:05 Temperature 97.4 F L Temperature Source Temporal Pulse Rate 87 Respiratory Rate 15 Blood Pressure 123/80 H Blood Pressure Mean 94 Pulse Ox 100 Oxygen Delivery Method Room Air <Dr. Umair Moss MD - Last Filed: 10/29/23 13:35> Physical Exam Const Vital Signs: 10/29/23 13:05 Temperature 97.4 F L Temperature Source Temporal Pulse Rate 87 Respiratory Rate 15 Blood Pressure 123/80 H Blood Pressure Mean 94 Pulse Ox 100 Oxygen Delivery Method Room Air MDM <LAMINE Ascencio - Last Filed: 10/29/23 14:45> [facility] Narrative Medical decision making narrative: Patient has a positional headache after receiving her epidural during vaginal delivery 2 days ago. She appears well and nontoxic. Vital signs within normal limits. She has a normal neurological exam. Headache is worse with sitting up likely a spinal headache. She was treated with IV Toradol, Compazine, Benadryl, and caffeine and feels improved. She feels well enough to go home and continue [id number] analgesia as needed. I discussed return precautions and she was discharged in stable condition. I have personally performed a face to face assessment of the patient and have reviewed the RICH Note. I performed a substantive portion of the visit including all aspects of the following. My panda findings include: History is 23-year-old female status post vaginal delivery with a epidural anesthesia 2 days ago on . Has a positional headache. Prior history of same and needed a blood patch. No history of headaches otherwise. No falls or trauma. No neurological findings. No fever. Exam is [well-appearing 23-year-old female. Vital signs stable afebrile. H EENT exam unremarkable. Neck nontender no meningismus. No lymphadenopathy. Full range of motion. Lungs clear heart regular rhythm. Abdomen soft nontender. Moving all 4 extremities. Neurovascular intact. Neurologic logic exam normal. Back areas of puncture to the lumbar spine with a day spinal anesthesia. Dry and clean. No redness or warmth.] Medical Decision Making [23-year-old with spinal headache after delivery and spinal anesthesia 2 days ago. She will be treated with caffeinated fluids plus Toradol Benadryl nausea medications and reassess. She does not need any imaging.] Other additions or changes: [None] <Dr. Umair Moss MD - Last Filed: 10/29/23 13:35> MDM MDM Narrative Medical decision making narrative: I have personally performed a face to face assessment of the patient and have reviewed the RICH Note. I performed a substantive portion of the visit including all aspects of the following. My panda findings include: History is 23-year-old female status post vaginal delivery with a epidural anesthesia 2 days ago on . Has a positional headache. Prior history of same and needed a blood patch. No history of headaches otherwise. No falls or trauma. No neurological findings. No fever. Exam is [well-appearing 23-year-old female. Vital signs stable afebrile. H EENT exam unremarkable. Neck nontender no meningismus. No lymphadenopathy. Full range of motion. Lungs clear heart regular rhythm. Abdomen soft nontender. Moving all 4 extremities. Neurovascular intact. Neurologic logic exam normal. Back areas of puncture to the lumbar spine with a day spinal anesthesia. Dry and clean. No redness or warmth.] Medical Decision Making [23-year-old with spinal headache after delivery and spinal anesthesia 2 days ago. She will be treated with caffeinated fluids plus Toradol Benadryl nausea medications and reassess. She does not need any i maging.] Other additions or changes: [None] History & Record Review Discussion w/independent historian: Patient Additional record(s) reviewed:: Prior inpatient record, Prior outpatient record, Prior ED visit and Prior labs Discharge Plan Triage Chief Complaint: Headache ED Midlevel Provider: Eileen Ford ED Provider: Umair Moss Dx/Rx/DC Orders Clinical Impression: Headache Instructions: ED Headache After Spinal Tap ... Prescriptions: No Action PNV cmb#95-ferrous fumarate-FA [] 28 mg iron- 800 mcg tablet 1 tab PO DAILY ferrous sulfate [Feosol] 325 mg (65 mg iron) tablet 325 mg PO DAILY Primary Care Provider: Care Physician,No Primary Referrals: Care Physician,No Primary [Primary Care Provider] - Activity Restrictions/Additional Instructions: Take tylenol or ibuprofen as needed Disposition Disposition: Home, Self Care
[2023-10-29] MEDS: Ketorolac 15 MG/ML Vial IV (13:41)
[2023-10-29] MEDS: DiphenhydrAMINE 50 MG/ML Syringe 25 MG IV (13:42)
[2023-10-29] MEDS: proCHLORPERazine 10 MG/2 ML Vial 5 MG IV (13:43)
[2023-10-29 14:50] VITALS: BP 105/78; PULSE 73; RESP 16; O2SAT 98
== END 2023-10-29 14:52 | disposition home or self-care (01) ==
PROVIDERS: Emergency Provider Emergency Medicine; Visit Provider Emergency Medicine
DX: O99.893 Other specified diseases and conditions complicating puerperium (principal); O99.335 Smoking (tobacco) complicating the puerperium; F17.200 Nicotine dependence, unspecified, uncomplicated; R51.9 Headache, unspecified
CPT/HCPCS: 96365; 96375; 99282; A4216

== ENCOUNTER 2024-01-09 21:11 | Emergency (ER) | payer MEDICAID, SELFPAY ==
[2024-01-09 21:12] VITALS: BP 150/101; PULSE 76; RESP 16; TEMP 36.8; O2SAT 100; BMI 28.8
--- NOTE | 2024-01-09 22:13 | EX.ED.DYSGE1 ---
HPI History of Present Illness Chief Complaint: General Illness Informant: patient Onset/Context/Timing Onset: Weeks (1-2) Context: Gradual Onset Timing: Continuous Quality: Sharp Location: Epigastric, back, neck, and head Worsened by: Nothing Relieved by: Nothing Narrative Narrative: Patient presents with epigastric pain and shortness of breath that has been getting progressively worse over the past 1 to 2 weeks. Patient states it is gradually getting worse. Patient states her pain is over the epigastric area and radiates up into her back, neck, and head. Patient describes her pain as sharp. Patient states she was seen at [place] emergency [facility] 3 days ago. Patient states the were unable to diagnose her with anything. Patient states nothing makes her pain better and nothing makes it worse. Patient denies any fevers or chills. Patient admits to some cough and shortness of breath. Patient denies any sputum production. Patient admits to some nausea but denies any vomiting. PFSH PFS Medical History 37 weeks gestation of Anemia affecting in third trimester Anxiety Chest pain Gastric reflux Hypertension Leg cramps Low iron Migraine headache depression Smoker (spontaneous vaginal delivery) Wears glasses Home Medications dicyclomine 20 mg tablet 20 mg PO 4X/DAY PRN abdominal pain 01/06/24 [History Last Taken Unknown] ondansetron 4 mg disintegrating tablet 4 mg PO Q8H PRN nausea and vomiting 01/06/24 [History Last Taken Unknown] Allergy/AdvReac Type Severity Reaction Status Date / Time No Known Allergies Allergy Verified 01/06/24 13:15 Surgical History History of appendectomy History of surgery on arm Social History Smoking Status: Light Smoker (<10/day) ROS ROS ED Constitutional Constitutional ED: Denies chills or fever(s) Eyes Eyes: Reports blurry vision; Denies change in vision ENT ENT ED: Reports ear pain; Denies rhinorrhea or sore throat Cardiovascular Cardiovascular: Reports palpitations; Denies chest pain Respiratory/Chest Respiratory/Chest: Reports cough and dyspnea Gastrointestinal Gastrointestinal: Reports nausea; Denies vomiting Genitourinary Genitourinary ED: Denies dysuria or hematuria Musculoskeletal Musculoskeletal: Reports back pain and neck pain Integumentary Denies abscess or rash Neurologic Neurologic: Reports headache(s); Denies weakness Allergic/Immunologic Allergic/Immunologic ED: Denies mouth swelling or urticaria EXAM Physical Exam Const Vital Signs: 01/09/24 21:12 01/09/24 22:59 01/09/24 23:00 Temperature 98.3 F Temperature Source Temporal Pulse Rate 76 68 Respiratory Rate 16 18 Respiratory Effort Normal Non-Labored Respiratory Pattern Normal Blood Pressure 150/101 H 128/89 H Blood Pressure Mean 117 102 Pulse Ox 100 100 Oxygen Delivery Method Room Air Room Air Positive well nourished and well developed General Appearance ED: well developed and NAD HEENT Reports moist mucous membranes Neck supple and no JVD Resp normal respiratory effort and clear to auscultation bilaterally Cardio regular rate and regular rhythm GI non-distended Palpation: soft and tender epigastric and RUQ; Negative for guarding or rebound tenderness present Neuro oriented x3, CN's II-XII intact bilaterally and no sensory deficits noted Sensorium / Orientation: alert Motor Exam: strength 5/5 throughout Psych mental status grossly normal MDM MDM MDM Narrative Medical decision making narrative: Differential diagnosis includes gastritis, GERD, cholecystitis, cholelithiasis, peptic ulcer disease, duodenal ulcer, urinary tract infection, viral illness, pneumonia, pancreatitis, and anxiety. Chest x-ray will be obtained to assess for pneumonia. CBC will be obtained to assess for leukocytosis and anemia. Comprehensive metabolic profile will be obtained to assess for hepatic function, renal function, and electrolyte abnormality. Lipase will be obtained to assess for pancreatitis. Serum hCG will be obtained to assess for . Urinalysis will be obtained to assess for urinary tract infection. CT scan of the abdomen pelvis will be obtained to assess for cholecystitis, cholelithiasis, bowel obstruction, and perforation. Lab Data Attestation: I reviewed the patient's lab results. Lab results narrative: CBC was reviewed. There is a mild anemia with a hemoglobin of 11.9. The remainder is within normal limits. Comprehensive metabolic profile was reviewed and was within normal limits. Lipase was reviewed and was normal. Serum hCG was reviewed and was negative. Urinalysis was reviewed. There is no evidence of urinary tract infection or hematuria. COVID-19 PCR was reviewed and was negative. Influenza PCR was reviewed and was negative for influenza A and influenza B. RSV PCR was reviewed and was negative. Labs: Laboratory Results - last 24 hr 01/09/24 23:05 WBC 9.5 RBC 4.60 Hgb 11.9 L Hct 38.2 MCV 83.0 MCH 25.9 L MCHC 31.2 L RDW Std Deviation 48.7 H RDW Coeff of Cindy 16.1 H Plt Count 300 MPV 10.3 Immature Gran % (Auto) 0.300 Neut % (Auto) 46.6 L Lymph % (Auto) 45.8 H Lorain % (Auto) 5.2 Eos % (Auto) 1.7 Baso % (Auto) 0.4 Absolute Neuts (auto) 4.4 Absolute Lymphs (auto) 4.37 Nucleated RBC % 0 Sodium 140 Potassium 3.6 Chloride 110 H Carbon Dioxide 27.0 Anion Gap 3 L BUN 13 Creatinine 0.67 Estim Creat Clear Calc 129.45 Est GFR (MDRD) Af Amer 138 Est GFR (MDRD) Non-Af 114 BUN/Creatinine Ratio 19.3 Glucose 93 Calcium 9.4 Total Bilirubin 0.20 AST 11 L ALT 28 Alkaline Phosphatase 58 Total Protein 7.4 Albumin 3.9 Globulin 3.5 Albumin/Globulin Ratio 1.1 Lipase 42 Serum , Qual NEGATIVE Urine Color Yellow Urine Clarity Clear Urine pH 6.0 Ur Specific Douglass 1.015 Urine Protein Negative Urine Glucose (UA) Normal Urine Ketones Negative Urine Occult Blood Negative Urine Nitrite Negative Urine Bilirubin Negative Urine Urobilinogen Normal Ur Leukocyte Esterase 25 H Urine RBC 0 SEEN Urine WBC 0 SEEN Ur Squamous Epith Cells 0 SEEN Urine Bacteria 0 SEEN Urine Mucus 0 SEEN Radiography Diagnostic Testing: Clinical Impression(s) from Imaging Studies Abdomen/Pelvis CT 01/09/24 22:41 IMPRESSION: There is a 5.8 cm left ovarian simple appearing cyst. ACR White Paper guidelines (Pollard, et. al. JACR 2020;17(2):248-254) recommend pelvic ultrasound follow-up in 6-12 months. Electronically Signed: Geroniom Newell MD at 0:07 EST , Chest X-Ray 01/09/24 23:38 IMPRESSION: No radiographic evidence of acute cardiopulmonary disease. Electronically Signed: Geronimo Newell MD at 0:03 EST , CT scan of the abdomen pelvis was obtained. There is a left ovarian cyst. There is no acute abnormality noted. This was interpreted by the radiologist was also independently reviewed by myself. PA and lateral chest x-ray was obtained. There are 2 views. On my independent interpretation, lung tolentino are clear. There is normal cardiac silhouette. Bony thorax is normal. There is no acute process noted. Radiologist also interpreted the x-ray and agrees. Treatment and Re-Evaluation :: Patient was given IV fluids, morphine, and Zofran. Patient had an episode where she felt like the left side of her face was tingling and her eye was blurry. Patient was given a dose of hydroxyzine for this. Patient states this resolved. Patient is feeling better on reevaluation. Patient was advised of her findings. Patient was instructed to follow-up with her primary care physician in 5 to 7 days. Patient understood and was agreeable with the plan. All questions were answered. Discharge Plan Triage Chief Complaint: General Illness ED Provider: Joseph Segura Dx/Rx/DC Orders Clinical Impression: Viral illness Instructions: ED Viral Syndrome (Adult) Prescriptions: No Action ondansetron 4 mg tablet,disintegrating 4 mg PO Q8H PRN (Reason: nausea and vomiting) dicyclomine 20 mg tablet 20 mg PO 4X/DAY PRN (Reason: abdominal pain) Primary Care Provider: Care Physician,No Primary Referrals: [facility] Doctor,Out of [Non-Staff] - 5-7 Days Disposition Disposition: Home, Self Care
--- OUTSIDE RECORDS SUMMARY | 2024-01-09 22:35 | XMS RPT_ITS | CCD ---
Author Name Unknown Address [address] [place] [address] Organization [facility] Care Team Providers Care Counter Hand Name Role Phone Elier Cummins Attending Unavailable Lenora Sofia Primary Care Unavailable Elier Cummins Attending Unavailable Lenora Sofia Primary Care Unavailable Elier Cummins Unavailable Unavailable Wilber Sofia Unavailable Unavailable Lenora Sofia Unavailable Unavailable Wilber Sofia Unavailable Unavailable Unavailable Wilber Sofia Unavailable [phone] Yeyo Hubbard Unavailable UnavailElier Henry Unavailable Gillian Ornelas Unavailable UnavailYeyo Velasquez Unavailable UnavailDr. Wilber Malave Primary Care Unavailab Dr. Yeyo Holley Attending Unav ailable Unavailable Primary Care Provider Unavailabl e Generic Provider , No Assigned Pcp Primary Car e Provider Unavailable CONNIE SANDERS Attending Unavailable LUCAS, JULIANA Referring Unavailable LUCAS, JULIANA Referring Unavailable LUCAS, JULIANA Referring Unavailable LUCAS JULIANA Attending Unavailable RHONA LINDO Referring Unavail able GERARDO CASTELLON Attending Unavailable PA GRAY Attending Unavailable GERARDO CASTELLON Referring Unavailable GERARDO CASTELLON Attending Unavailable GERARDO CASTELLON Referring Unavailable Generic Provider , No Assigned Pcp Primary Car e Provider Unavailable WILBER SOFIA Primary Care Unavailable SILVIA GUZMAN Attending Unavailable SILVIA GUZMAN Referring Unavailable KELLIE CROOK Attending Unavailable YEYO HUBBARD Attending Unavailable GENERIC PROVIDER, NO ASSIGNED PCP Primary Care Unavailable YEYO HUBBARD Attending Unavailable WILBER SOFIA Primary Care Unavailable LUZ ELENA MARTINEZ Attending Unavaila ble Allergies Allergy Classification Reported Allergen(s) Allergy Type Date of Onset Reaction(s) Facility (1 source) Adhesive Tape; Translations: [Tape] Propensity to adverse reactions to drug (disorder) [facility] Repository (20 sources) Adhesive Tape allergy to substance Hives [facility] [address] Work Phone: (4 sources) Tape - Adhesive, Bandaids, Paper Unknown [facility] Medications Current Medications Medication Drug Class(es) [...] Quantity: 14 Refills: 0 Ordered: 18-Feb-2022 Yeyo Hubbard Start: 18-Feb-2022 End: 24-Feb-2022 Generic Substitution Allowed Comments: Finish all this medication unless otherwise directed by prescriber. Completed/Discontinued Medications Medication Drug Class(es) Dates Sig (Normalized) Sig (Original) aspirin 81 mg delayed release oral tablet (10 sources) Platelet Aggregation Inhibitor, Nonsteroidal Anti-inflammatory Drug Start: 07-01-2023 take 1 tablet by mouth once daily aspirin, enteric coated (ASPIRIN, ENTERIC COATED) 81 mg EC tablet Take 1 tablet by mouth once daily. 30 tablet 4 07/01/2023 Active Problems Active Problems Problem Classification Problem Date Documented Da te Episodic/Chronic Abdominal pain (5 sources) Left lower quadrant pain; Translations: [Epigastric pain] Onset: 04-01-2023 01-06-2024 Episodic Anxiety disorders (3 sources) Anxiety neurosis ; Translations: [Generalized anxiety disorder] Onset: 01-04-2024 12-08-2023 Chronic Complications of surgical procedures or medical care [...] sources) Amenorrhea; Translations: [Absence of menstruation] Chronic Miscellaneous mental health disorders (3 sources) depression; Translations: [ depression] Onset: 12-12-2023 12-12-2023 Episodic Mood disorders (2 sources) Depressive disorder; Translations: [Depressive disorder, not elsewhere classified] 08-14-2021 Chronic OB-related trauma to perineum and vulva (1 source) Perineal laceration during delivery; Translations: [Other specified trauma to perineum and vulva, delivered, with or without mention of antepartum condition] Onset: 02-15-2022 02-15-2022 Episodic Other circulatory disease (1 source) Elevated blood pressure; Translations: [Elevated blood-pressure reading, without diagnosis of hypertension] 01-06-2024 Episodic Other circulatory disease (2 sources) Elevated blood-pressure reading, without diagnosis of hypertension; Translations: [Elevated blood-pressure reading, without diagnosis of hypertension] Onset: 01-06-2024 Episodic Other complications of ; puerperium affecting management of mother (1 source) Anemia during the puerperium; Translations: [Anemia of the puerperium] 12-08-2023 Chronic Other complications of (17 sources) Anemia in mother complicating , childbirth [...] conditions, first trimester] Onset: 04-01-2023 Episodic Other complications of (1 source) High risk ; Translations: [Supervision of high risk , unspecified, third trimester] 10-25-2023 Episodic Other endocrine disorders (10 sources) Menarche; Translations: [History of Menarche] Chronic Other gastrointestinal disorders (8 sources) Abnormal intestinal absorption; Translations: [Intestinal malabsorption, unspecified] Onset: 09-13-2023 09-13-2023 Chronic Other lower respiratory disease (2 sources) Dyspnea; Translations: [Shortness of breath] Onset: 01-06-2024 01-06-2024 Episodic Other lower respiratory disease (1 source) Shortness of breath; Translations: [Shortness of breath] Onset: 01-06-2024 Episodic Other nutritional; endocrine; and metabolic disorders (6 sources) Body mass index 30+ - obesity; Translations: [Obesity, unspecified] Chronic Other screening for suspected conditions (not mental disorders or infectious disease) (20 sources) Cancer cervix screening status; Translations: [Screening for malignant neoplasms of cervix] Episodic Ovarian cyst (3 sources) Cyst of left ovary; Translations: [Unspecified ovarian cyst, left side] Onset: 01-06-2024 01-06-2024 Episodic Residual codes; unclassified (18 sources) Gestation period, 13 weeks; Translations: [ state, incidental] Resolved: 01-01-2020 Episodic Residual codes; unclassified (3 sources) Gestation period, 15 weeks; Translations: [15 weeks gestation of ] Episodic Residual codes; unclassified (3 sources) Gestation period, 20 weeks; Translations: [20 weeks gestation of ] 07-01-2023 Episodic Residual codes; unclassified (3 sources) Gestation period, 17 weeks; Translations: [ state, incidental] Episodic Residual codes; unclassified (1 source) Gestation period, 30 weeks; Translations: [ state, incidental] Episodic Residual codes; unclassified (2 sources) Gestation period, 32 weeks; Translations: [ state, incidental] Episodic Residual codes; unclassified (2 sources) Gestation period, 35 weeks; Translations: [ state, incidental] Episodic Residual codes; unclassified (1 source) Gestation period, 36 weeks; Translations: [ state, incidental] Episodic Residual codes; unclassified (2 sources) Gestation period, 37 weeks; Translations: [ state, incidental] 10-25-2023 Episodic Residual codes; unclassified (1 source) Less than 8 weeks gestation of ; Translations: [Less than 8 weeks gestation of ] Onset: 04-01-2023 Episodic Residual codes; unclassified (1 source) Gestation period, 29 weeks; Translations: [29 weeks gestation of ] 09-05-2023 Episodic Unclassified (2 sources) EVAL 08-14-2021 Past or Other Problems Problem Classification Problem Date Documented Da te Episodic/Chronic Other complications of (14 sources) Complication of , childbirth and/or the puerperium; Translations: [Other specified related conditions, unspecified trimester] Onset: 04-28-2023 04-28-2023 Episodic Other complications of (13 sources) Obstetric spinal and epidural anesthesia-induced headache; Translations: [Spinal and epidural anesthesia induced headache during , unspecified trimester] Onset: 04-28-2023 04-28-2023 Episodic Other and delivery including normal (20 sources) Urine test positive; Translations: [History of past delivery] Onset: 05-18-2023 Resolved: 01-15-2020 02-13-2022 Episodic Results Test Name Value Interpretation Reference Range Facil ity Vital Signs Date Time Vital Sign Value Performing Clinician Facility 01-06-2024 21:00-0500 Diastolic blood pressure 75 mm[Hg] Yeyo Hubbard DO Work Phone: [facility] 01-06-2024 21:00-0500 Heart rate 61 /min Yeyo Hubbard DO Work Phone: [facility] 01-06-2024 21:00-0500 Respiratory rate 18 /min Yeyo Hubbard DO Work Phone: [facility] 01-06-2024 21:00-0500 SaO2% (BldA) [Mass fraction] 100 % Yeyo Hubbard DO Work Phone: [facility] 01-06-2024 21:00-0500 Systolic blood pressure 105 mm[Hg] Yeyo Hubbard DO Work Phone: [facility] 01-06-2024 19:05-0500 Body height 162.6 cm Yeyo Hubbard DO Work Phone: [facility] 01-06-2024 19:05-0500 Body mass index (BMI) [Ratio] 28.32 kg/m2 Yeyo Hubbard DO Work Phone: [facility] 01-06-2024 19:05-0500 Body temperature 98.6 [degF] Yeyo Hubbard DO Work Phone: [facility] 01-06-2024 19:05-0500 Body weight 74.84 kg Yeyo Hubbard DO Work Phone: [facility] 01-06-2024 02:52-0500 Diastolic blood pressure 99 mm[Hg] Yeyo Hubbard DO Work Phone: [facility] 01-06-2024 02:52-0500 Heart rate 70 /min Yeyo Hubbard DO Work Phone: [facility] 01-06-2024 02:52-0500 Respiratory rate 16 /min Yeyo Hubbard DO Work Phone: [facility] 01-06-2024 02:52-0500 SaO2% (BldA) [Mass fraction] 97 % Yeyo Hubbard DO Work Phone: [facility] 01-06-2024 02:52-0500 Systolic blood pressure 134 mm[Hg] Yeyo Hubbard DO Work Phone: [facility] 01-06-2024 01:12-0500 Body height 162.6 cm Yeyo Hubbard DO Work Phone: [facility] 01-06-2024 01:12-0500 Body mass index (BMI) [Ratio] 28.32 kg/m2 Yeyo Hubbard DO Work Phone: [facility] 01-06-2024 01:12-0500 Body temperature 97.5 [degF] Yeyo Ramsara DO Work Phone: [facility] 01-06-2024 01:12-0500 Body weight 74.84 kg Yeyoapril Hubbard DO Work Phone: [facility] 12-29-2023 00:29-0500 Diastolic blood pressure 87 mm[Hg] Kellie Crook MD Work Phone: [facility] 12-29-2023 00:29-0500 Heart rate 91 /min Kellie Crook MD Work Phone: [facility] 12-29-2023 00:29-0500 Respiratory rate 18 /min Kellie Crook MD Work Phone: [facility] 12-29-2023 00:29-0500 SaO2% (BldA) [Mass fraction] 99 % Kellie Crook MD Work Phone: [facility] 12-29-2023 00:29-0500 Systolic blood pressure 109 mm[Hg] Kellie Crook MD Work Phone: [facility] 12-28-2023 22:38-0500 Body height 162.6 cm Kellie Crook MD Work Phone: [facility] 12-28-2023 22:38-0500 Body mass index (BMI) [Ratio] 28.32 kg/m2 Kellie Crook MD Work Phone: [facility] 12-28-2023 22:38-0500 Body temperature 98.8 [degF] Kellie Crook MD Work Phone: [facility] 12-28-2023 22:38-0500 Body weight 74.84 kg Kellie Crook MD Work Phone: [facility] 12-12-2023 03:49-0500 Diastolic blood pressure 81 mm[Hg] Silvia Guzman DO Work Phone: 5(288)580-788767 [place] [address] 12-12-2023 03:49-0500 Heart rate 92 /min Silvia Guzman DO Work Phone: 7(517)964-605667 [place] [address] 12-12-2023 03:49-0500 Respiratory rate 18 /min Silvia Guzman DO Work Phone: 9(349)579-988667 [place] [address] 12-12-2023 03:49-0500 SaO2% (BldA) [Mass fraction] 100 % Silvia Guzman DO Work Phone: 3(319)307-605767 [place] [address] 12-12-2023 03:49-0500 Systolic blood pressure 140 mm[Hg] Silvia Guzman DO Work Phone: 0(746)988-585067 [place] [address] 12-12-2023 02:07-0500 Body height 162.6 cm Silvia Guzman DO Work Phone: 7(641)386-806467 [place] [address] 12-12-2023 02:07-0500 Body mass index (BMI) [Ratio] 27.98 kg/m2 Silvia Guzman DO Work Phone: 2(243)634-937967 [place] [address] 12-12-2023 02:07-0500 Body temperature 96.91 [degF] Silvia Guzman DO Work Phone: 2(090)295-211867 [place] [address] 12-12-2023 02:07-0500 Body weight 73.94 kg Silvia Guzman DO Work Phone: 5(147)452-290867 [place] [address] 12-08-2023 13:20-0500 Body height 161.3 cm Gerardo Castellon MD Work Phone: [facility] 12-08-2023 13:20-0500 Body weight 73.94 kg Gerardo Castellon MD Work Phone: [facility] 10-25-2023 08:23-0500 Body weight 82.56 kg Pa Gray MD Work Phone: [facility] 10-25-2023 08:23-0500 Diastolic blood pressure 60 mm[Hg] Pa Gray MD Work Phone: [facility] 10-25-2023 08:23-0500 Systolic blood pressure 104 mm[Hg] Pa Gray MD Work Phone: [facility] 09-05-2023 13:56-0400 Body weight 78.11 kg Gerardo Castellon MD Work Phone: [facility] 09-05-2023 13:56-0400 Diastolic blood pressure 62 mm[Hg] Gerardo Castellon MD Work Phone: [facility] 09-05-2023 13:56-0400 Systolic blood pressure 110 mm[Hg] Gerardo Castellon MD Work Phone: [facility] 07-01-2023 14:14-0400 Body weight 71.67 kg Connie Plotts [employer]ING [employer] SHIPPING CLERK.CNM Work Phone: [facility] 07-01-2023 14:14-0400 Diastolic blood pressure 62 mm[Hg] Connie Plotts PACKING AND SHIPPING CLERK.CNM Work Phone: [facility] 07-01-2023 14:14-0400 Systolic blood pressure 90 mm[Hg] Connie Plotts PACKING AND SHIPPING CLERK.CNM Work Phone: [facility] 05-18-2023 13:04-0400 Body height 161 cm Juliana Lucas PACKING AND SHIPPING CLERK.CNM Work Phone: [facility] 05-18-2023 13:04-0400 Body weight 68.58 kg Juliana Lucas PACKING AND SHIPPING CLERK.CNM Work Phone: [facility] 05-18-2023 13:04-0400 Diastolic blood pressure 66 mm[Hg] Juliana Lucas PACKING AND SHIPPING CLERK.CNM Work Phone: [facility] 05-18-2023 13:04-0400 Systolic blood pressure 108 mm[Hg] Juliana Lucas PACKING AND SHIPPING CLERK.CNM Work Phone: [facility] 02-18-2022 02:07-0400 Body temperature 98.78 [degF] Wilber Sofia Other Phone: [facility] 02-18-2022 02:07-0400 Diastolic blood pressure 91 mm[Hg] Wilber Bismark Other Phone: [facility] 02-18-2022 02:07-0400 Heart rate 82 /min Wilber Bismark Other Phone: [facility] 02-18-2022 02:07-0400 Respiratory rate 16 /min Wilber Bismark Other Phone: [facility] 02-18-2022 02:07-0400 SaO2% (BldA) [Mass fraction] 99 % Wilber Bismark Other Phone: [facility] 02-18-2022 02:07-0400 Systolic blood pressure 116 mm[Hg] Wilber Bismark Other Phone: [facility] 02-15-2022 18:38-0400 Body temperature 97.7 [degF] Wilber Bismark Other Phone: [facility] 02-15-2022 18:38-0400 Diastolic blood pressure 85 mm[Hg] Wilber Bismark Other Phone: [facility] 02-15-2022 18:38-0400 Heart rate 87 /min Wilber Bismark Other Phone: [facility] 02-15-2022 18:38-0400 Respiratory rate 16 /min Wilber Bismark Other Phone: [facility] 02-15-2022 18:38-0400 SaO2% (BldA) [Mass fraction] 98 % Wilber Bismark Other Phone: [facility] 02-15-2022 18:38-0400 Systolic blood pressure 127 mm[Hg] Wilber Bismark Other Phone: [facility] 02-12-2022 14:08-0400 Body height 160.02 cm Wilber L Bismark Work Phone: [address] Work Phone: 02-12-2022 14:08-0400 Body mass index (BMI) [Ratio] 34.76 kg/m2 Wilber L Bismark Work Phone: [place] [address] [address] Work Phone: 02-12-2022 14:08-0400 Body surface area Derived from formula 1.92 m2 Wilber L Bismark Work Phone: [place] [address] [address] Work Phone: 02-12-2022 14:08-0400 Body weight 89 kg Wilber L Bismark Work Phone[facility] [address] [address] Work Phone: 02-12-2022 14:08-0400 Diastolic blood pressure 68 mm[Hg] Wilber L Bismark Work Phone[facility] [place] [address] [address] Work Phone: 02-12-2022 14:08-0400 Systolic blood pressure 112 mm[Hg] Wilber L Bismark Work Phone: [place] [address] [address] Work Phone: 02-05-2022 13:45-0400 Body height 160.02 cm Wilber L Bismark Work Phone: [facility] [address] [address] Work Phone: 02-05-2022 13:45-0400 Body mass index (BMI) [Ratio] 33.86 kg/m2 Wilber L Bismark Work Phone: [place] [address] [address] Work Phone: 02-05-2022 13:45-0400 Body surface area Derived from formula 1.9 m2 Wilber L Bismark Work Phone: [address] [address] [address] Work Phone: 02-05-2022 13:45-0400 Body weight 86.7 kg Wilber L Bismark Work Phone: [place] [address] [address] Work Phone: 02-05-2022 13:45-0400 Diastolic blood pressure 70 mm[Hg] Wilber L Bismark Work Phone: [address] [address] [address] Work Phone: 02-05-2022 13:45-0400 Systolic blood pressure 100 mm[Hg] Wilber L Bismark Work Phone: [place] [address] [address] Work Phone: 01-29-2022 13:11-0400 Body height 160.02 cm Wilber L Bismark Work Phone: [address] [address] [address] Work Phone: 01-29-2022 13:11-0400 Body mass index (BMI) [Ratio] 33.39 kg/m2 Wilber L Bismark Work Phone: [place] [address] [address] Work Phone: 01-29-2022 13:11-0400 Body surface area Derived from formula 1.89 m2 Wilber L Bismark Work Phone: [place] [address] [address] Work Phone: 01-29-2022 13:11-0400 Body weight 85.5 kg Wilber L Bismark Work Phone: [facility] [address] [address] Work Phone: 01-29-2022 13:11-0400 Diastolic blood pressure 68 mm[Hg] Wilber L Bismark Work Phone: [place] [address] [address] Work Phone: 01-29-2022 13:11-0400 Systolic blood pressure 116 mm[Hg] Wilber L Bismark Work Phone: [facility] [address] [address] Work Phone: 01-22-2022 13:06-0400 Body height 160.02 cm Wilber L Bismark Work Phone: [place] [address] [address] Work Phone: 01-22-2022 13:06-0400 Body mass index (BMI) [Ratio] 33 kg/m2 Wilber L Bismark Work Phone: [employer] Work Phone: 01-22-2022 13:06-0400 Body surface area Derived from formula 1.88 m2 Wilber L Bismark Work Phone: [employer] [address] Work Phone: 01-22-2022 13:06-0400 Body weight 84.5 kg Wilber L Bismark Work Phone: [employer] Work Phone: 01-22-2022 13:06-0400 Diastolic blood pressure 66 mm[Hg] Wilber L Bismark Work Phone: [place] [address] [address] Work Phone: 01-22-2022 13:06-0400 Systolic blood pressure 114 mm[Hg] Wilber L Bismark Work Phone: [employer] Work Phone: 01-08-2022 13:16-0500 Body height 160.02 cm Wilber L Bismark Work Phone: [employer] Work Phone: 01-08-2022 13:16-0500 Body mass index (BMI) [Ratio] 32.41 kg/m2 Wilber L Bismark Work Phone: [employer] [address] Work Phone: 01-08-2022 13:16-0500 Body surface area Derived from formula 1.86 m2 Wilber L Bismark Work Phone: [employer] [address] Work Phone: 01-08-2022 13:16-0500 Body weight 83 kg Wilber L Bismark Work Phone: [place] [address] [address] Work Phone: 01-08-2022 13:16-0500 Diastolic blood pressure 64 mm[Hg] Wilber L Bismark Work Phone: [place] [address] [address] Work Phone: 01-08-2022 13:16-0500 Systolic blood pressure 116 mm[Hg] Wilber L Bismark Work Phone: [place] [address] [address] Work Phone: 12-25-2021 09:55-0500 Body height 160.02 cm Wilber L Bismark Work Phone: [place] [address] [address] Work Phone: 12-25-2021 09:55-0500 Body mass index (BMI) [Ratio] 32.65 kg/m2 Wilber L Bismark Work Phone: [place] [address] [address] Work Phone: 12-25-2021 09:55-0500 Body surface area Derived from formula 1.87 m2 Wilber L Bismark Work Phone: [place] [address] [address] Work Phone: 12-25-2021 09:55-0500 Body temperature 97.1 [degF] Wilber L Bismark Work Phone: [place] [address] [address] Work Phone: 12-25-2021 09:55-0500 Body weight 83.6 kg Wilber L Bismark Work Phone: [place] [address] [address] Work Phone: 12-25-2021 09:55-0500 Diastolic blood pressure 64 mm[Hg] Wilber L Bismark Work Phone: [place] [address] [address] Work Phone: 12-25-2021 09:55-0500 Systolic blood pressure 122 mm[Hg] Wilber L Bismark Work Phone: [place] [address] [employer] Work Phone: 10-15-2021 12:50-0500 Diastolic blood pressure 67 mm[Hg] Wilber Bismark Other Phone: [facility] 10-15-2021 12:50-0500 Heart rate 102 /min Wilber Bismark Other Phone: [facility] 10-15-2021 12:50-0500 Respiratory rate 18 /min Wilber Bismark Other Phone: [facility] 10-15-2021 12:50-0500 SaO2% (BldA) [Mass fraction] 100 % Wilber Bismark Other Phone: [facility] 10-15-2021 12:50-0500 Systolic blood pressure 116 mm[Hg] Wilber Bismark Other Phone: [facility] 10-15-2021 11:12-0500 Body height 162.5 cm Wilber Bismark Other Phone: [facility] 10-15-2021 11:12-0500 Body temperature 98.24 [degF] Wilber Bismark Other Phone: [facility] 10-15-2021 11:12-0500 Body weight 80 kg Wilber Bismark Other Phone: [facility] 09-25-2021 10:51-0500 Body height 160.02 cm Wilber L Bismark Work Phone: [place] [address] [employer] Work Phone: 09-25-2021 10:51-0500 Body mass index (BMI) [Ratio] 31.48 kg/m2 Wilber L Bismark Work Phone: [facility] [employer] Work Phone: 09-25-2021 10:51-0500 Body surface area Derived from formula 1.84 m2 Wilber L Bismark Work Phone: [place] [address] [address] Work Phone: 09-25-2021 10:51-0500 Body temperature 96.8 [degF] Wilber L Bismark Work Phone: [place] [address] [address] Work Phone: 09-25-2021 10:51-0500 Body weight 80.6 kg Wilber L Bismark Work Phone: [place] [address] [address] Work Phone: 09-25-2021 10:51-0500 Diastolic blood pressure 70 mm[Hg] Wilber L Bismark Work Phone: [place] [address] [address] Work Phone: 09-25-2021 10:51-0500 Systolic blood pressure 110 mm[Hg] Wilber L Bismark Work Phone: [place] [address] [address] Work Phone: 08-28-2021 10:18-0400 Body height 160.02 cm Wilber L Bismark Work Phone: [place] [address] [address] Work Phone: 08-28-2021 10:18-0400 Body mass index (BMI) [Ratio] 30.34 kg/m2 Wilber L Bismark Work Phone: [place] [address] [address] Work Phone: 08-28-2021 10:18-0400 Body surface area Derived from formula 1.81 m2 Wilber L Bismark Work Phone: [place] [address] [address] Work Phone: 08-28-2021 10:18-0400 Body temperature 97.3 [degF] Wilber L Bismark Work Phone: [place] [address] [address] Work Phone: 08-28-2021 10:18-0400 Body weight 77.7 kg Wilber L Bismark Work Phone: [place] [address] [address] Work Phone: 08-28-2021 10:18-0400 Diastolic blood pressure 62 mm[Hg] Wilber L Bismark Work Phone: [place] [address] [address] Work Phone: 08-28-2021 10:18-0400 Systolic blood pressure 108 mm[Hg] Wilber L Bismark Work Phone: [place] [address] [address] Work Phone: 08-14-2021 17:30-0400 Diastolic blood pressure 79 mm[Hg] Wilber Bismark Other Phone: [facility] 08-14-2021 17:30-0400 Heart rate 87 /min Wilber Bismark Other Phone: [facility] 08-14-2021 17:30-0400 Respiratory rate 16 /min Wilber Bismark Other Phone: [facility] 08-14-2021 17:30-0400 SaO2% (BldA) [Mass fraction] 97 % Wilber Bismark Other Phone: [facility] 08-14-2021 17:30-0400 Systolic blood pressure 119 mm[Hg] Wilber Bismark Other Phone: [facility] 08-14-2021 15:11-0400 Body height 160 cm Wilber Bismark Other Phone: [facility] 08-14-2021 15:11-0400 Body temperature 98.06 [degF] Wilber Bismark Other Phone: [facility] 08-14-2021 15:11-0400 Body weight 75.3 kg Wilber Bismark Other Phone: [facility] 07-20-2021 09:50-0400 Body height 160.02 cm Wilber L Bimsark Work Phone: [employer] Work Phone: 07-20-2021 09:50-0400 Body mass index (BMI) [Ratio] 29.06 kg/m2 Wilber Stahl Bismark Work Phone: [employer] Work Phone: 07-20-2021 09:50-0400 Body surface area Derived from formula 1.78 m2 Wilber L Bismark Work Phone: [employer] Work Phone: 07-20-2021 09:50-0400 Body temperature 97.8 [degF] Wilber [address] Work Phone: [employer] [employer] Work Phone: 07-20-2021 09:50-0400 Body weight 74.4 kg Wilber L Bismark Work Phone: [employer] [place] Work Phone: 07-20-2021 09:50-0400 Diastolic blood pressure 62 mm[Hg] Wilber L Bismark Work Phone: [employer] Work Phone: 07-20-2021 09:50-0400 Systolic blood pressure 114 mm[Hg] Wilber L Bismark Work Phone: [employer] [place] Work Phone: 11-13-2019 15:26-0500 BMI (Body Mass Index) 31.2 kg/m2 Elier Cummins [employer] Work Phone: 11-13-2019 15:26-0500 Body weight 79.9 kg Elier Cummins [employer] Alexi Elmer Work Phone: 11-13-2019 15:26-0500 BP Diastolic 62 mm[Hg] Elier Cummins [facility] [employer] Work Phone: 11-13-2019 15:26-0500 BP Systolic 112 mm[Hg] Elier Truong Elmer Work Phone: 11-13-2019 15:26-0500 BSA (Body Surface Area) 1.83 m2 Elier Truong Elmer Work Phone: 11-13-2019 15:26-0500 Height 160.02 cm Elier Truong Elmer Work Phone: 10-09-2019 13:47-0500 BMI (Body Mass Index) 29.49 kg/m2 Elier Truong Elmer Work Phone: 10-09-2019 13:47-0500 Body weight 75.5 kg Elier Truong Elmer Work Phone: 10-09-2019 13:47-0500 BP Diastolic 64 mm[Hg] Elier Truong Elmer Work Phone: 10-09-2019 13:47-0500 BP Systolic 116 mm[Hg] Elier Truong Elmer Work Phone: 10-09-2019 13:47-0500 BSA (Body Surface Area) 1.79 m2 Elier Truong Elmer Work Phone: 10-09-2019 13:47-0500 Height 160.02 cm Elier Truong Elmer Work Phone: 09-21-2019 15:50-0500 BMI (Body Mass Index) 28.9 kg/m2 Elier Truong Elmer Work Phone: 09-21-2019 15:50-0500 Body weight 74 kg Elier Truong Elmer Work Phone: 09-21-2019 15:50-0500 BP Diastolic 66 mm[Hg] Elier Truong Elmer Work Phone: Encounters Encounter Date Encounter Type Care Provider Facility Start: 01-06-2024 End: 01-06-2024 Emergency department patient visit NO ASSIGNED PCP GENERIC PROVIDER [facility] Start: 01-06-2024 End: 01-06-2024 Emergency department patient visit Yeyo Hubbard DO Work Phone: [facility] Emergency Medicine Procedures Date Procedure Procedure Detail Performing Clinician Start: 01-06-2024 ECG 12-LEAD WILBER RA ANTONIO Start: 01-06-2024 XR CHEST 1 VIEW WILBER BISMARK Start: 01-06-2024 INFLUENZA A AND B PCR D OUGLAS BISMARK Start: 01-06-2024 SARS-COV-2 PCR WILBER BISMARK Start: 01-06-2024 CBC W Auto Different ial panel - Blood WILBER BISMARK Start: 01-06-2024 Comprehensive metabo lic 2000 panel - Serum or Plasma WILBER BISMARK Start: 01-06-2024 D-DIMER, NON VTE DOUGLA S BISMARK Start: 01-06-2024 TROPONIN I, HIGH SENSITIVITY WILBER BISMARK Start: 01-06-2024 INITIATE DROPLET PLU S ISOLATION WILBER BISMARK Start: 01-06-2024 Ecg routine ecg w/le ast 12 lds trcg only w/o i&r Yeyo Hubbard DO Work Phone: Start: 01-06-2024 Radiologic exam ches t single view Yeyo Hubbard DO Work Phone: Start: 01-06-2024 Influenza virus A an d B RNA [Identifier] in Unspecified specimen by DARLING with probe detection Yeyo Hubbard DO Work Phone: Start: 01-06-2024 SARS-CoV-2 (COVID-19 ) RNA [Presence] in Respiratory specimen by DARLING with probe detection Yeyo Hubbard DO Work Phone: Start: 01-06-2024 Comprehensive metabo lic panel Yeyo Hubbard DO Work Phone: Start: 01-06-2024 CT ABDOMEN PELVIS W IV CONTRAST WILBER BISMARK Start: 01-06-2024 HCG, URINE, QUALITATIVE WILBER BISMARK Start: 01-06-2024 MICROSCOPIC ONLY, URINE WILBER BISMARK Start: 01-06-2024 URINALYSIS WITH REFL EX MICROSCOPIC WILBER BISMARK Start: 01-06-2024 CBC W Auto Different ial panel - Blood WILBER BISMARK Start: 01-06-2024 Comprehensive metabo lic 2000 panel - Serum or Plasma WILBER BISMARK Start: 01-06-2024 Creatine kinase [Enz ymatic activity/volume] in Serum or Plasma WILBER BISMARK Start: 01-06-2024 Lipase [Enzymatic activity/volume] in Serum or Plasma WILBER BISMARK Start: 01-06-2024 Ct abdomen & pelvis w/contrast material Yeyo Hubbard DO Work Phone: Start: 01-06-2024 Urinalysis microscop ic panel - Urine Qualitative by Automated Yeyo Hubbard DO Work Phone: Start: 01-06-2024 Urine test visual color cmprsn meths Yeyo Hubbard DO Work Phone: Start: 01-06-2024 Urnls dip stick/tabl et reagent auto microscopy Yeyo Hubbard DO Work Phone: Start: 01-06-2024 Comprehensive metabo lic panel Yeyo Hubbard DO Work Phone: Start: 12-29-2023 EXTRA TUBES WILBER RA ANTONIO Start: 12-29-2023 GREEN TOP WILEBR RA ANTONIO Start: 12-29-2023 LAVENDER TOP WILBER RA ANTONIO Start: 12-29-2023 D-DIMER, NON VTE DOUGLA S BISMARK Start: 12-29-2023 GROUP A STREPTOCOCCUS, PCR WILBER BISMARK Start: 12-29-2023 SARS-COV-2 AND INFLU J CARLOS A/B PCR WILBER BISMARK Start: 12-28-2023 Fibrin dgradj produc ts d-dimer quantitative Kellie Crook MD Work Phone: Start: 12-28-2023 Iadna streptococcus group a amplified probe tq Kellie Crook MD Work Phone: Start: 12-28-2023 Influenza virus A an d B and SARS-CoV-2 (COVID-19) identified in Respiratory specimen by DARLING with probe detection Kellie Crook MD Work Phone: Start: 12-12-2023 CBC W Auto Different ial panel - Blood WILBER SOFIA Start: 12-12-2023 Comprehensive metabo lic 2000 panel - Serum or Plasma WILBER SOFIA Start: 12-12-2023 D-DIMER, NON VTE DOUGLA S BISMARK Start: 12-12-2023 Lactate [Moles/volum e] in Serum or Plasma WILBER BISMARK Start: 12-12-2023 Magnesium [Mass/volu me] in Serum or Plasma WILBER BISMARK Start: 12-12-2023 ECG 12-LEAD WILBER RA ANTONIO Start: 12-12-2023 Comprehensive metabo lic panel Silvia W Guzman DO Work Phone: Start: 12-12-2023 Ecg routine ecg w/le ast 12 lds trcg only w/o i&r Silvia W Guzman DO Work Phone: Start: 10-25-2023 URINE OB DIP B/O Kwame Gray MD Work Phone: Start: 09-05-2023 Antibody screen DILEEPCRISTIANA SANDERS Plan of Treatment Date Care Activity Detail Author Start: 2049 Zoster Vaccines (1 of 2) Zoster Vaccines (1 of 2) [facility] Start: 09-05-2033 DTaP/Tdap/Td Vaccines (2 - Td or Tdap) DTaP/Tdap/Td Vaccines (2 - Td or Tdap) [facility] Start: 09-05-2033 DTaP/Tdap/Td Vaccines (8 - Td or Tdap) DTaP/Tdap/Td Vaccines (8 - Td or Tdap) [facility] Start: 09-05-2033 Urine microalbumin profile DTaP,Tdap,Td Vaccine (8 - Td or Tdap) [facility] Start: 05-18-2026 PAP TESTING PAP TESTING [facility] Start: 05-18-2026 Screening for malignant neoplasm of cervix [facility] Start: 01-19-2024 End: 01-19-2024 Patient encounter procedure 01/19/2024 1:40 PM EDT Office Visit Medical [facility] [address] [place] [id number] Kay Arellano MD [address] [place] [address] [facility] Start: 12-08-2023 End: 03-08-2024 CBC panel - Blood by Automated count CBC Lab Routine Anemia, care and examination Expected: 12/08/2023, Expires: 03/08/2024 [facility] Work Phone: Immunizations Immunization Date Immunization Notes Care Provider Fa cili 09-05-2023 RHO(D) immune globul in- IV or IM Gerardo Castellon MD Work Phone: [facility] 09-05-2023 tetanus toxoid, redu abdias diphtheria toxoid, and acellular pertussis vaccine, adsorbed Gerardo Castellon MD Work Phone: [facility] 05-06-2015 HPV, unspecified formulation [facility] Work Phone: Payers Date Payer Category Payer Medicaid [id number] 2023 Medicaid [id number] 2018 Unknown 1999 Unknown [id number] 2.16.84 [id number] 1999 Unknown [id number] 2.16.84 [id number] 1999 Unknown [id number] 2.16.8 [id number] 1999 Unknown [id number] 2.16.8 [id number] 1999 Unknown [id number] 2.16.8 [id number] 1999 Unknown [id number] 2.16.84 [id number] 1999 Unknown [id number] 2.16.84 [id number] 1999 Unknown [id number] 2.16.84 [id number] 1999 Unknown [id number] [id number] Self-pay [id number] Social History Date Type Detail Facility Assertion Unknown if ever smoked [facility] [address] Work Phone: Start: 05-18-2023 End: 01-06-2024 No alcohol use No alcohol use [facility] Tobacco smoking consumption unknown [facility] Start: 04-28-2023 Tobacco smoking stat [facility] Ex-smoker [facility] Work Phone: End: 04-22-2022 History of tobacco use Current smoker [facility] Work Phone: End: 04-22-2022 History of tobacco use Cigarette Smoker [facility] Work Phone: Start: 04-28-2023 End: 01-06-2024 Tobacco use and exposure Smokeless tobacco non-user [facility] Work Phone: Start: 04-28-2023 End: 12-08-2023 Alcohol intake Ex-drinker (finding) [facility] Start: 04-28-2023 Education 13 [facility] Start: 04-28-2023 Alcohol Comment Rarely [facility] Start: 02-22-2023 [facility] Start: 2000 Sex Assigned At Not on file [facility] Start: 05-18-2023 End: 01-06-2024 Tobacco use panel [facility] National Score (1-100), lower number is lower risk 80 [facility] Start: 12-02-2023 End: 01-06-2024 Exposure to SARS-CoV-2 (event) Not sure [facility] Work Phone: Start: 12-08-2023 [facility] The thought of nan wright myself has occurred to me Never [facility] Start: 01-06-2024 Tobacco smoking stat us [facility]IS Smokes tobacco daily [facility] Functional Status Date Assessment Result Facility Functional observable [facility] NEGATED: Highlighted row Functional performance Functional status health issues are not documented [facility] [employer] Work Phone: Mental Status Date Assessment Result Facility 02-15-2022 Cognitive functi ons :24 [facility] NEGATED: Highlighted row Cognitive function [Interpretation] Cognitive status health issues are not documented Disease [facility] [employer] Work Phone: Clinical Notes 05-07-2021 to 01-06-2024 Yeyo Hubbard, DO - 01/06/2024 6:58 PM ESTCameron Naman Hubbard, DO - 01/06/2024 6:58 PM ESTCameron Naman Hubbard, DO - 01/06/2024 1:02 AM ESTCameron Naman Hubbard, DO - 01/06/2024 1:02 AM EST<item> Note Date & Type Note Facility 01-06-2024 Emergency department Note Associated Order(s): ECG 12 lead HPI Chief Complaint Patient presents with Shortness of Breath Patient states she was seen here last night for abdominal pain, complains of shortness of breath and feels like her heart is racing since noon today Limitations to History: None HPI: 23-year-old female presents with concern for shortness of breath. States it is worse when she is lying flat. States she feels like she cannot get a deep breath. Patient was seen here last night for upper abdominal pain. Had a negative workup including a CAT scan. States her abdominal pain is somewhat improved. Was treated with Bentyl and Zofran. Denies any fever, chills, cough, nausea, vomiting, urinary symptoms. Physical Exam: VS: As documented in the triage note and EMR flowsheet from this visit were reviewed. Appearance: Alert. cooperative, in no acute distress. Skin: Intact, dry skin, no lesions, rash, petechiae or purpura. Eyes: PERRLA, EOMs intact, Conjunctiva pink with no redness or exudates. HENT: Normocephalic, atraumatic. Nares patent. No intraoral lesions. Neck: Supple, without meningismus. Trachea at midline. No lymphadenopathy. Pulmonary: Clear bilaterally with good chest wall excursion. No rales, rhonchi or wheezing. No accessory muscle use or stridor. Cardiac: Regular rate and rhythm, no rubs, murmurs, or gallops. Abdomen: Abdomen is soft, nontender, and nondistended. No palpable organomegaly. No rebound or guarding. No CVA tenderness. Nonsurgical abdomen. Genitourinary: Exam deferred. Musculoskeletal: Full range of motion. Pulses full and equal. No cyanosis, clubbing, or edema. Psychiatric: Appropriate mood and affect. [place] Coma Scale Score: 15 Patient History Past Medical History: Diagnosis Date Encounter for full-term uncomplicated delivery NVD (normal vaginal delivery) Encounter for gynecological examination (general) (routine) without abnormal findings Pap test, as part of routine gynecological examination Encounter for test, result positive 08/21/2019 Positive urine test Other conditions influencing health status Menstruation Past Surgical History: Procedure Laterality Date OTHER SURGICAL HISTORY 08/19/2019 Appendectomy No family history on file. Social History Tobacco Use Smoking status: Every Day Packs/day: .25 Types: Cigarettes Smokeless tobacco: Never Substance Use Topics Alcohol use: Not on file Drug use: Not on file Physical Exam ED Triage Vitals [01/06/24 1905] Temperature Heart Rate Respirations BP 37 C (98.6 F) 78 17 (!) 131/115 Pulse Ox Temp Source Heart Rate Source Patient Position 100 % Temporal Monitor -- BP Location FiO2 (%) -- -- Physical Exam ED Course & MDM Diagnoses as of 03/01/24 2108 Shortness of breath Medical Decision Making Labs Reviewed CBC WITH AUTO DIFFERENTIAL - Abnormal WBC 7.5 nRBC 0.0 RBC 4.25 Hemoglobin 11.2 (*) Hematocrit 35.5 (*) MCV 84 MCH 26.4 MCHC 31.5 (*) RDW 16.7 (*) Platelets 252 Neutrophils % 45.4 Immature Granulocytes %, Automated 0.1 Lymphocytes % 46.4 Monocytes % 5.7 Eosinophils % 2.0 Basophils % 0.4 Neutrophils Absolute 3.40 Immature Granulocytes Absolute, Au* 0.01 Lymphocytes Absolute 3.48 Monocytes Absolute 0.43 Eosinophils Absolute 0.15 Basophils Absolute 0.03 COMPREHENSIVE METABOLIC PANEL - Abnormal Glucose 100 (*) Sodium 137 Potassium 3.8 Chloride 106 Bicarbonate 24 Anion Gap 11 Urea Nitrogen 10 Creatinine 0.63 eGFR >90 Calcium 8.8 Albumin 4.1 Alkaline Phosphatase 49 Total Protein 6.7 AST 12 Bilirubin, Total 0.2 ALT 18 TROPONIN I, HIGH SENSITIVITY - Normal Troponin I, High Sensitivity <3 Narrative: Less than 99th percentile of normal range cutoff- Female and children under 18 years old <14 ng/L; Male <21 ng/L: Negative Repeat testing should be performed if clinically indicated. Female and children under 18 years old 14-50 ng/L; Male 21-50 ng/L: Consistent with possible cardiac damage and possible increased clinical risk. Serial measurements may help to assess extent of myocardial damage. >50 ng/L: Consistent with cardiac damage, increased clinical risk and myocardial infarction. Serial measurements may help assess extent of myocardial damage. NOTE: Children less than 1 year old may have higher baseline troponin levels and results should be interpreted in conjunction with the overall clinical context. NOTE: Troponin I testing is performed using a different testing methodology at [facility] than at other [facility]. Direct result comparisons should only be made within the same method. D-DIMER, NON VTE - Normal D-Dimer Non VTE, Quant (ng/mL FEU) <215 Narrative: The D-Dimer assay is reported in ng/mL Fibrinogen Equivalent Units (FEU). The results of this assay should NOT be used for the exclusion of Deep Vein Thrombosis and/or Pulmonary Embolism. SARS-COV-2 PCR - Normal Coronavirus 2019, PCR Narrative: This assay has received FDA Emergency Use Authorization (EUA) and is only authorized for the duration of time that circumstances exist to justify the authorization of the emergency use of in vitro diagnostic tests for the detection of SARS-CoV-2 virus and/or diagnosis of COVID-19 infection under section 564(b)(1) of the Act, 21 U.S.C. 360bbb-3(b)(1). This assay is an in vitro diagnostic nucleic acid amplification test for the qualitative detection of SARS-CoV-2 from nasopharyngeal specimens and has been validated for use at [facility]. Negative results do not preclude COVID-19 infections and should not be used as the sole basis for diagnosis, treatment, or other management decisions. INFLUENZA A AND B PCR - Normal XR chest 1 view Final Result 1. No evidence of acute cardiopulmonary process. MACRO: None Signed by: Abelino Hernandez 01/06/2024 9:03 PM Dictation workstation: [id number] Medical Decision Making: Patient appears well and nontoxic. Blood pressure initially elevated which is improved spontaneously. Lab work otherwise unremarkable. D-dimer negative. Troponin negative. Chest x-ray clear. Patient advised to follow-up with primary care. Stable at time of discharge. Differential Diagnoses Considered: ACS, pulmonary embolism, pneumonia, pneumothorax, anxiety Independent Interpretation of Studies: I independently interpreted: Chest x-ray shows no evidence of pneumonia or pneumothorax. Escalation of Care: Appropriate for discharge and follow-up with primary care. Procedure ECG 12 lead Performed by: Yeyo Hubbard DO Authorized by: Yeyo Hubbard DO ECG interpreted by ED Physician in the absence of a oven equipment repairer: yes Comments: EKG interpreted by Dr. Yeyo Hubbard: Normal sinus rhythm at 67 bpm. [place] interval 150 ms. QTc of 414 ms. Sinus arrhythmia. No evidence of ST elevation or depression at this time. Yeyo Hubbard DO 01/06/242108 documented in this encounter [facility] Work Phone: 01-06-2024 Physician Emergency department Note Associated Order(s): ECG 12 lead HPI Chief Complaint Patient presents with Shortness of Breath Patient states she was seen here last night for abdominal pain, complains of shortness of breath and feels like her heart is racing since noon today Limitations to History: None HPI: 23-year-old female presents with concern for shortness of breath. States it is worse when she is lying flat. States she feels like she cannot get a deep breath. Patient was seen here last night for upper abdominal pain. Had a negative workup including a CAT scan. States her abdominal pain is somewhat improved. Was treated with Bentyl and Zofran. Denies any fever, chills, cough, nausea, vomiting, urinary symptoms. Physical Exam: VS: As documented in the triage note and EMR flowsheet from this visit were reviewed. Appearance: Alert. cooperative, in no acute distress. Skin: Intact, dry skin, no lesions, rash, petechiae or purpura. Eyes: PERRLA, EOMs intact, Conjunctiva pink with no redness or exudates. HENT: Normocephalic, atraumatic. Nares patent. No intraoral lesions. Neck: Supple, without meningismus. Trachea at midline. No lymphadenopathy. Pulmonary: Clear bilaterally with good chest wall excursion. No rales, rhonchi or wheezing. No accessory muscle use or stridor. Cardiac: Regular rate and rhythm, no rubs, murmurs, or gallops. Abdomen: Abdomen is soft, nontender, and nondistended. No palpable organomegaly. No rebound or guarding. No CVA tenderness. Nonsurgical abdomen. Genitourinary: Exam deferred. Musculoskeletal: Full range of motion. Pulses full and equal. No cyanosis, clubbing, or edema. Psychiatric: Appropriate mood and affect. [place] Coma Scale Score: 15 Patient History Past Medical History: Diagnosis Date Encounter for full-term uncomplicated delivery NVD (normal vaginal delivery) Encounter for gynecological examination (general) (routine) without abnormal findings Pap test, as part of routine gynecological examination Encounter for test, result positive 08/21/2019 Positive urine test Other conditions influencing health status Menstruation Past Surgical History: Procedure Laterality Date OTHER SURGICAL HISTORY 08/19/2019 Appendectomy No family history on file. Social History Tobacco Use Smoking status: Every Day Packs/day: .25 Types: Cigarettes Smokeless tobacco: Never Substance Use Topics Alcohol use: Not on file Drug use: Not on file Physical Exam ED Triage Vitals [01/06/24 1905] Temperature Heart Rate Respirations BP 37 C (98.6 F) 78 17 (!) 131/115 Pulse Ox Temp Source Heart Rate Source Patient Position 100 % Temporal Monitor -- BP Location FiO2 (%) -- -- Physical Exam ED Course & MDM Diagnoses as of 01/06/242107 Shortness of breath Medical Decision Making Labs Reviewed CBC WITH AUTO DIFFERENTIAL - Abnormal WBC 7.5 nRBC 0.0 RBC 4.25 Hemoglobin 11.2 (*) Hematocrit 35.5 (*) MCV 84 MCH 26.4 MCHC 31.5 (*) RDW 16.7 (*) Platelets 252 Neutrophils % 45.4 Immature Granulocytes %, Automated 0.1 Lymphocytes % 46.4 Monocytes % 5.7 Eosinophils % 2.0 Basophils % 0.4 Neutrophils Absolute 3.40 Immature Granulocytes Absolute, Au* 0.01 Lymphocytes Absolute 3.48 Monocytes Absolute 0.43 Eosinophils Absolute 0.15 Basophils Absolute 0.03 COMPREHENSIVE METABOLIC PANEL - Abnormal Glucose 100 (*) Sodium 137 Potassium 3.8 Chloride 106 Bicarbonate 24 Anion Gap 11 Urea Nitrogen 10 Creatinine 0.63 eGFR >90 Calcium 8.8 Albumin 4.1 Alkaline Phosphatase 49 Total Protein 6.7 AST 12 Bilirubin, Total 0.2 ALT 18 TROPONIN I, HIGH SENSITIVITY - Normal Troponin I, High Sensitivity <3 Narrative: Less than 99th percentile of normal range cutoff- Female and children under 18 years old <14 ng/L; Male <21 ng/L: Negative Repeat testing should be performed if clinically indicated. Female and children under 18 years old 14-50 ng/L; Male 21-50 ng/L: Consistent with possible cardiac damage and possible increased clinical risk. Serial measurements may help to assess extent of myocardial damage. >50 ng/L: Consistent with cardiac damage, increased clinical risk and myocardial infarction. Serial measurements may help assess extent of myocardial damage. NOTE: Children less than 1 year old may have higher baseline troponin levels and results should be interpreted in conjunction with the overall clinical context. NOTE: Troponin I testing is performed using a different testing methodology at [facility] than at other [facility]. Direct result comparisons should only be made within the same method. D-DIMER, NON VTE - Normal D-Dimer Non VTE, Quant (ng/mL FEU) <215 Narrative: The D-Dimer assay is reported in ng/mL Fibrinogen Equivalent Units (FEU). The results of this assay should NOT be used for the exclusion of Deep Vein Thrombosis and/or Pulmonary Embolism. SARS-COV-2 PCR - Normal Coronavirus 2019, PCR Narrative: This assay has received FDA Emergency Use Authorization (EUA) and is only authorized for the duration of time that circumstances exist to justify the authorization of the emergency use of in vitro diagnostic tests for the detection of SARS-CoV-2 virus and/or diagnosis of COVID-19 infection under section 564(b)(1) of the Act, 21 U.S.C. 360bbb-3(b)(1). This assay is an in vitro diagnostic nucleic acid amplification test for the qualitative detection of SARS-CoV-2 from nasopharyngeal specimens and has been validated for use at [facility]. Negative results do not preclude COVID-19 infections and should not be used as the sole basis for diagnosis, treatment, or other management decisions. INFLUENZA A AND B PCR - Normal XR chest 1 view Final Result 1. No evidence of acute cardiopulmonary process. MACRO: None Signed by: Abelino Hernandez 01/06/2024 9:03 PM Dictation workstation: [id number] Medical Decision Making: Patient appears well and nontoxic. Blood pressure initially elevated which is improved spontaneously. Lab work otherwise unremarkable. D-dimer negative. Troponin negative. Chest x-ray clear. Patient advised to follow-up with primary care. Stable at time of discharge. Differential Diagnoses Considered: ACS, pulmonary embolism, pneumonia, pneumothorax, anxiety Independent Interpretation of Studies: I independently interpreted: Chest x-ray shows no evidence of pneumonia or pneumothorax. Escalation of Care: Appropriate for discharge and follow-up with primary care. Procedure ECG 12 lead Performed by: Yeyo Hubbard DO Authorized by: Yeyo Hubbard DO ECG interpreted by ED Physician in the absence of a oven equipment repairer: yes Comments: EKG interpreted by Dr. Yeyo Hubbard: Normal sinus rhythm at 67 bpm. [place] interval 150 ms. QTc of 414 ms. Sinus arrhythmia. No evidence of ST elevation or depression at this time. Yeyo Hubbard DO 01/06/242108 [facility] Work Phone: 01-06-2024 Emergency department Note HPI Chief Complaint Patient presents with Abdominal Pain Pt states for the last couple weeks, she's had epigastric abdominal paint that goes into her upper to mid back, also nausea. States she was seen previously for this but was told it was anxiety, states that it never really went away since being seen. Recently had a baby 2 months ago. Limitations to History: None HPI: 23-year-old female presents with epigastric pain that radiates through to her back. States this began 3 hours ago. Complaining of nausea and vomiting. Patient states she has been seen multiple times recently for leg cramping. She also had pain in her upper back. Was also seen for tingling in her left arm. Denies any chest pain, shortness of breath, urinary symptoms. Denies any fall or trauma. 10 weeks post- from . . Physical Exam: VS: As documented in the triage note and EMR flowsheet from this visit were reviewed. Appearance: Alert. cooperative, in no acute distress. Skin: Intact, dry skin, no lesions, rash, petechiae or purpura. Eyes: PERRLA, EOMs intact, Conjunctiva pink with no redness or exudates. HENT: Normocephalic, atraumatic. Nares patent. No intraoral lesions. Neck: Supple, without meningismus. Trachea at midline. No lymphadenopathy. Pulmonary: Clear bilaterally with good chest wall excursion. No rales, rhonchi or wheezing. No accessory muscle use or stridor. Cardiac: Regular rate and rhythm, no rubs, murmurs, or gallops. Abdomen: Abdomen is soft. Tenderness in the upper epigastrium. Nondistended. No palpable organomegaly. No rebound or guarding. No CVA tenderness. Nonsurgical abdomen. Genitourinary: Exam deferred. Musculoskeletal: Full range of motion. Pulses full and equal. No cyanosis, clubbing, or edema. Neurological: Cranial nerves are grossly intact, grossly normal sensation, no weakness, no focal findings identified. Psychiatric: Appropriate mood and affect. No data recorded Patient History Past Medical History: Diagnosis Date Encounter for full-term uncomplicated delivery NVD (normal vaginal delivery) Encounter for gynecological examination (general) (routine) without abnormal findings Pap test, as part of routine gynecological examination Encounter for test, result positive 08/21/2019 Positive urine test Other conditions influencing health status Menstruation Past Surgical History: Procedure Laterality Date OTHER SURGICAL HISTORY 08/19/2019 Appendectomy No family history on file. Social History Tobacco Use Smoking status: Every Day Packs/day: .25 Types: Cigarettes Smokeless tobacco: Never Substance Use Topics Alcohol use: Not on file Drug use: Not on file Physical Exam ED Triage Vitals [01/06/24 0112] Temperature Heart Rate Respirations BP 36.4 C (97.5 F) (!) 113 20 (!) 149/117 Pulse Ox Temp src Heart Rate Source Patient Position 98 % -- -- -- BP Location FiO2 (%) -- -- Physical Exam ED Course & MDM Diagnoses as of 01/06/24 0248 Epigastric pain Cyst of left ovary Elevated blood pressure reading Medical Decision Making Labs Reviewed URINALYSIS WITH REFLEX MICROSCOPIC - Abnormal Color, Urine Yellow Appearance, Urine Hazy (*) Specific Pyatt, Urine 1.021 pH, Urine 5.0 Protein, Urine NEGATIVE Glucose, Urine NEGATIVE Blood, Urine NEGATIVE Ketones, Urine 5 (TRACE) (*) Bilirubin, Urine NEGATIVE Urobilinogen, Urine <2.0 Nitrite, Urine NEGATIVE Leukocyte Esterase, Urine SMALL (1+) (*) CBC WITH AUTO DIFFERENTIAL - Abnormal WBC 11.1 nRBC 0.0 RBC 4.59 Hemoglobin 12.0 Hematocrit 38.2 MCV 83 MCH 26.1 MCHC 31.4 (*) RDW 16.5 (*) Platelets 316 Neutrophils % 45.6 Immature Granulocytes %, Automated 0.2 Lymphocytes % 45.2 Monocytes % 6.4 Eosinophils % 2.1 Basophils % 0.5 Neutrophils Absolute 5.05 Immature Granulocytes Absolute, Au* 0.02 Lymphocytes Absolute 5.00 (*) Monocytes Absolute 0.71 Eosinophils Absolute 0.23 Basophils Absolute 0.05 MICROSCOPIC ONLY, URINE - Abnormal WBC, Urine 1-5 RBC, Urine 1-2 Squamous Epithelial Cells, Urine Bacteria, Urine 1+ (*) Mucus, Urine 1+ HCG, URINE, QUALITATIVE - Normal HCG, Urine NEGATIVE LIPASE - Normal Lipase 54 Narrative: Venipuncture immediately after or during the administration of Metamizole may lead to falsely low results. Testing should be performed immediately prior to Metamizole dosing. COMPREHENSIVE METABOLIC PANEL - Normal Glucose 97 Sodium 138 Potassium 3.9 Chloride 105 Bicarbonate 26 Anion Gap 11 Urea Nitrogen 11 Creatinine 0.69 eGFR >90 Calcium 9.6 Albumin 4.5 Alkaline Phosphatase 52 Total Protein 7.3 AST 14 Bilirubin, Total 0.2 ALT 19 CREATINE KINASE - Normal CT abdomen pelvis w IV contrast Final Result No acute inflammatory process throughout the abdomen or pelvis. 6.4 x 5.5 cm simple appearing cystic lesion likely arising from the left ovary. Consider further evaluation with pelvic ultrasound if there is lower abdominal/pelvic pain to better assess the ovary. MACRO: None. Signed by: Bruce Botello 01/06/2024 2:40 AM Dictation workstation: [id number] Medical Decision Making: Patient tearful upon arrival. Hypertensive. Treated with 1 L normal saline, morphine, Zofran. Lab work otherwise unremarkable. Urine shows no evidence of infection. Patient continued to have pain and was treated with intravenous Dilaudid. CT of the abdomen pelvis performed which does show a left adnexal cyst without other abnormality. Patient feeling much improved on reevaluation. Blood pressure remains elevated. Was made aware of her symptoms will be given [employer] OPERATIONS MANAGER follow-up as well as will need primary care follow-up for blood pressure. Patient will also be given Bentyl and Zofran for home. Asked return for new or worsening symptoms. Stable at time of discharge. Differential Diagnoses Considered: Gastritis, peptic ulcer, pancreatitis, cholecystitis, aortic dissection, electrolyte abnormality, UTI, kidney stone Independent Interpretation of Studies: I independently interpreted: CT of the abdomen pelvis with IV contrast shows no evidence of intra-abdominal free air. Escalation of Care: Appropriate for discharge and follow-up with [employer]PERATIONS MANAGER and primary care. Prescription Drug Consideration: Oral Bentyl and Zofran. Procedure Procedures Yeyo Hubbard DO 01/06/24 0248 documented in this encounter [facility] Work Phone: 01-06-2024 Physician Emergency department Note HPI Chief Complaint Patient presents with Abdominal Pain Pt states for the last couple weeks, she's had epigastric abdominal paint that goes into her upper to mid back, also nausea. States she was seen previously for this but was told it was anxiety, states that it never really went away since being seen. Recently had a baby 2 months ago. Limitations to History: None HPI: 23-year-old female presents with epigastric pain that radiates through to her back. States this began 3 hours ago. Complaining of nausea and vomiting. Patient states she has been seen multiple times recently for leg cramping. She also had pain in her upper back. Was also seen for tingling in her left arm. Denies any chest pain, shortness of breath, urinary symptoms. Denies any fall or trauma. 10 weeks post- from . . Physical Exam: VS: As documented in the triage note and EMR flowsheet from this visit were reviewed. Appearance: Alert. cooperative, in no acute distress. Skin: Intact, dry skin, no lesions, rash, petechiae or purpura. Eyes: PERRLA, EOMs intact, Conjunctiva pink with no redness or exudates. HENT: Normocephalic, atraumatic. Nares patent. No intraoral lesions. Neck: Supple, without meningismus. Trachea at midline. No lymphadenopathy. Pulmonary: Clear bilaterally with good chest wall excursion. No rales, rhonchi or wheezing. No accessory muscle use or stridor. Cardiac: Regular rate and rhythm, no rubs, murmurs, or gallops. Abdomen: Abdomen is soft. Tenderness in the upper epigastrium. Nondistended. No palpable organomegaly. No rebound or guarding. No CVA tenderness. Nonsurgical abdomen. Genitourinary: Exam deferred. Musculoskeletal: Full range of motion. Pulses full and equal. No cyanosis, clubbing, or edema. Neurological: Cranial nerves are grossly intact, grossly normal sensation, no weakness, no focal findings identified. Psychiatric: Appropriate mood and affect. No data recorded Patient History Past Medical History: Diagnosis Date Encounter for full-term uncomplicated delivery NVD (normal vaginal delivery) Encounter for gynecological examination (general) (routine) without abnormal findings Pap test, as part of routine gynecological examination Encounter for test, result positive 08/21/2019 Positive urine test Other conditions influencing health status Menstruation Past Surgical History: Procedure Laterality Date OTHER SURGICAL HISTORY 08/19/2019 Appendectomy No family history on file. Social History Tobacco Use Smoking status: Every Day Packs/day: .25 Types: Cigarettes Smokeless tobacco: Never Substance Use Topics Alcohol use: Not on file Drug use: Not on file Physical Exam ED Triage Vitals [01/06/24 0112] Temperature Heart Rate Respirations BP 36.4 C (97.5 F) (!) 113 20 (!) 149/117 Pulse Ox Temp src Heart Rate Source Patient Position 98 % -- -- -- BP Location FiO2 (%) -- -- Physical Exam ED Course & MDM Diagnoses as of 01/06/24 0248 Epigastric pain Cyst of left ovary Elevated blood pressure reading Medical Decision Making Labs Reviewed URINALYSIS WITH REFLEX MICROSCOPIC - Abnormal Color, Urine Yellow Appearance, Urine Hazy (*) Specific Pyatt, Urine 1.021 pH, Urine 5.0 Protein, Urine NEGATIVE Glucose, Urine NEGATIVE Blood, Urine NEGATIVE Ketones, Urine 5 (TRACE) (*) Bilirubin, Urine NEGATIVE Urobilinogen, Urine <2.0 Nitrite, Urine NEGATIVE Leukocyte Esterase, Urine SMALL (1+) (*) CBC WITH AUTO DIFFERENTIAL - Abnormal WBC 11.1 nRBC 0.0 RBC 4.59 Hemoglobin 12.0 Hematocrit 38.2 MCV 83 MCH 26.1 MCHC 31.4 (*) RDW 16.5 (*) Platelets 316 Neutrophils % 45.6 Immature Granulocytes %, Automated 0.2 Lymphocytes % 45.2 Monocytes % 6.4 Eosinophils % 2.1 Basophils % 0.5 Neutrophils Absolute 5.05 Immature Granulocytes Absolute, Au* 0.02 Lymphocytes Absolute 5.00 (*) Monocytes Absolute 0.71 Eosinophils Absolute 0.23 Basophils Absolute 0.05 MICROSCOPIC ONLY, URINE - Abnormal WBC, Urine 1-5 RBC, Urine 1-2 Squamous Epithelial Cells, Urine Bacteria, Urine 1+ (*) Mucus, Urine 1+ HCG, URINE, QUALITATIVE - Normal HCG, Urine NEGATIVE LIPASE - Normal Lipase 54 Narrative: Venipuncture immediately after or during the administration of Metamizole may lead to falsely low results. Testing should be performed immediately prior to Metamizole dosing. COMPREHENSIVE METABOLIC PANEL - Normal Glucose 97 Sodium 138 Potassium 3.9 Chloride 105 Bicarbonate 26 Anion Gap 11 Urea Nitrogen 11 Creatinine 0.69 eGFR >90 Calcium 9.6 Albumin 4.5 Alkaline Phosphatase 52 Total Protein 7.3 AST 14 Bilirubin, Total 0.2 ALT 19 CREATINE KINASE - Normal CT abdomen pelvis w IV contrast Final Result No acute inflammatory process throughout the abdomen or pelvis. 6.4 x 5.5 cm simple appearing cystic lesion likely arising from the left ovary. Consider further evaluation with pelvic ultrasound if there is lower abdominal/pelvic pain to better assess the ovary. MACRO: None. Signed by: Bruce Botello 01/06/2024 2:40 AM Dictation workstation: [id number] Medical Decision Making: Patient tearful upon arrival. Hypertensive. Treated with 1 L normal saline, morphine, Zofran. Lab work otherwise unremarkable. Urine shows no evidence of infection. Patient continued to have pain and was treated with intravenous Dilaudid. CT of the abdomen pelvis performed which does show a left adnexal cyst without other abnormality. Patient feeling much improved on reevaluation. Blood pressure remains elevated. Was made aware of her symptoms will be given [employer]PERATIONS MANAGER follow-up as well as will need primary care follow-up for blood pressure. Patient will also be given Bentyl and Zofran for home. Asked return for new or worsening symptoms. Stable at time of discharge. Differential Diagnoses Considered: Gastritis, peptic ulcer, pancreatitis, cholecystitis, aortic dissection, electrolyte abnormality, UTI, kidney stone Independent Interpretation of Studies: I independently interpreted: CT of the abdomen pelvis with IV contrast shows no evidence of intra-abdominal free air. Escalation of Care: Appropriate for discharge and follow-up with GEOTHER[employer] OPERATIONS MANAGER and primary care. Prescription Drug Consideration: Oral Bentyl and Zofran. Procedure Procedures Yeyo Hubbard DO 01/06/24 0248 [facility] Work Phone: 12-28-2023 Emergency department Note 23-year-old female with multiple complaints. Most of her symptoms have been going on for 2 weeks now. She has some posterior calf burning type pain that goes up the back of her leg. She reports some bilateral elbow discomfort. Has pain in her ears and in her throat. Review of Systems Physical Exam Vitals and nursing note reviewed. Constitutional: General: She is not in acute distress. Appearance: She is well-developed. HENT: Head: Normocephalic and atraumatic. Eyes: Conjunctiva/sclera: Conjunctivae normal. Cardiovascular: Rate and Rhythm: Normal rate and regular rhythm. Heart sounds: No murmur heard. Pulmonary: Effort: Pulmonary effort is normal. No respiratory distress. Breath sounds: Normal breath sounds. Abdominal: Palpations: Abdomen is soft. Tenderness: There is no abdominal tenderness. Musculoskeletal: General: No swelling. Cervical back: Neck supple. Skin: General: Skin is warm and dry. Capillary Refill: Capillary refill takes less than 2 seconds. Neurological: Mental Status: She is alert. Psychiatric: Mood and Affect: Mood normal. Labs Reviewed GROUP A STREPTOCOCCUS, PCR - Normal Result Value Group A Strep PCR Not Detected D-DIMER, NON VTE - Normal D-Dimer Non VTE, Quant (ng/mL FEU) 258 Narrative: The D-Dimer assay is reported in ng/mL Fibrinogen Equivalent Units (FEU). The results of this assay should NOT be used for the exclusion of Deep Vein Thrombosis and/or Pulmonary Embolism. SARS-COV-2 AND INFLUENZA A/B PCR - Normal Flu A Result Not Detected Flu B Result Not Detected Coronavirus 2019, PCR Not Detected Narrative: This assay has received FDA Emergency Use Authorization (EUA) and is only authorized for the duration of time that circumstances exist to justify the authorization of the emergency use of in vitro diagnostic tests for the detection of SARS-CoV-2 virus and/or diagnosis of COVID-19 infection under section 564(b)(1) of the Act, 21 U.S.C. 360bbb-3(b)(1). Testing for SARS-CoV-2 is only recommended for patients who meet current clinical and/or epidemiological criteria as defined by federal, state, or local public health directives. This assay is an in vitro diagnostic nucleic acid amplification test for the qualitative detection of SARS-CoV-2, Influenza A, and Influenza B from nasopharyngeal specimens and has been validated for use at [facility]. Negative results do not preclude COVID-19 infections or Influenza A/B infections, and should not be used as the sole basis for diagnosis, treatment, or other management decisions. If Influenza A/B and RSV PCR results are negative, testing for Parainfluenza virus, Adenovirus and Metapneumovirus is routinely performed for [facility], and is available on other patients by placing an add-on request. GREEN TOP No orders to display Procedures Medical Decision Making Patient's physical exam is unremarkable for acute findings. D-dimer was negative therefore DVT unlikely. Swabs for COVID flu and strep are negative. Diagnoses as of 12/28/232349 Viral illness Kellie Crook MD 12/28/232349 documented in this encounter [facility] Work Phone: 12-28-2023 Physician Emergency department Note 23-year-old female with multiple complaints. Most of her symptoms have been going on for 2 weeks now. She has some posterior calf burning type pain that goes up the back of her leg. She reports some bilateral elbow discomfort. Has pain in her ears and in her throat. Review of Systems Physical Exam Vitals and nursing note reviewed. Constitutional: General: She is not in acute distress. Appearance: She is well-developed. HENT: Head: Normocephalic and atraumatic. Eyes: Conjunctiva/sclera: Conjunctivae normal. Cardiovascular: Rate and Rhythm: Normal rate and regular rhythm. Heart sounds: No murmur heard. Pulmonary: Effort: Pulmonary effort is normal. No respiratory distress. Breath sounds: Normal breath sounds. Abdominal: Palpations: Abdomen is soft. Tenderness: There is no abdominal tenderness. Musculoskeletal: General: No swelling. Cervical back: Neck supple. Skin: General: Skin is warm and dry. Capillary Refill: Capillary refill takes less than 2 seconds. Neurological: Mental Status: She is alert. Psychiatric: Mood and Affect: Mood normal. Labs Reviewed GROUP A STREPTOCOCCUS, PCR - Normal Result Value Group A Strep PCR Not Detected D-DIMER, NON VTE - Normal D-Dimer Non VTE, Quant (ng/mL FEU) 258 Narrative: The D-Dimer assay is reported in ng/mL Fibrinogen Equivalent Units (FEU). The results of this assay should NOT be used for the exclusion of Deep Vein Thrombosis and/or Pulmonary Embolism. SARS-COV-2 AND INFLUENZA A/B PCR - Normal Flu A Result Not Detected Flu B Result Not Detected Coronavirus 2019, PCR Not Detected Narrative: This assay has received FDA Emergency Use Authorization (EUA) and is only authorized for the duration of time that circumstances exist to justify the authorization of the emergency use of in vitro diagnostic tests for the detection of SARS-CoV-2 virus and/or diagnosis of COVID-19 infection under section 564(b)(1) of the Act, 21 U.S.C. 360bbb-3(b)(1). Testing for SARS-CoV-2 is only recommended for patients who meet current clinical and/or epidemiological criteria as defined by federal, state, or local public health directives. This assay is an in vitro diagnostic nucleic acid amplification test for the qualitative detection of SARS-CoV-2, Influenza A, and Influenza B from nasopharyngeal specimens and has been validated for use at [facility]. Negative results do not preclude COVID-19 infections or Influenza A/B infections, and should not be used as the sole basis for diagnosis, treatment, or other management decisions. If Influenza A/B and RSV PCR results are negative, testing for Parainfluenza virus, Adenovirus and Metapneumovirus is routinely performed for [facility], and is available on other patients by placing an add-on request. GREEN TOP No orders to display Procedures Medical Decision Making Patient's physical exam is unremarkable for acute findings. D-dimer was negative therefore DVT unlikely. Swabs for COVID flu and strep are negative. Diagnoses as of 12/28/23 2350 Viral illness Kellie Crook MD 12/28/23 2350 [facility] Work Phone: 12-27-2023 Miscellaneous Notes Patient notified and voiced understanding. Patient has appointment on 01/02. Britt Prieto RN Message left asking pt to call the office for further instructions. Nancy Field LPN Recommend a visit for this 10/27/23. 6 week PP visit with SW was 12/08/23 and she started zoloft and ocp. Stopped taking 2/4 because she did not like how she felt. Seen in [facility] ED 12/12 (in care everywhere) and diagnosed with panic attacks and told to follow up with us. Patient does not feel like it is a panic attack. She said it's happening 1-3x a day. Starting with pain in her upper abdomen, numbness and tingling throughout her body, SOB and back/calf pain. The episode lasts 30 min-1 hour. She now states her pain is generalized to her whole body rating it a 5/10 and constant. Has not taken tylenol/motrin. Not . Bleeding had completely stopped and she bled x3 days four days ago. Encouraged hydration and to try motrin/tylenol for pain. Please advise. Lenora Howard RN documented in this encounter [facility] 12-12-2023 Emergency department Note HPI Chief Complaint Patient presents with Shortness of Breath Pt has been having episodic SOB along with flushing for 1 day. States like a panic attack but much worse. Reports some neck discomfort during these episodes but no chest pain. Reports hyperventilation and numbness to arms. 23-year-old female who is 1 month presents with what she describes as hyperventilation and anxiety attack. Patient was started on Zoloft 3 days ago and feels it is not helping. Patient is 4 para 4. Patient denies any nausea or vomiting. Patient states she has never had an episode this severe in the past. She denies any nausea, vomiting or diarrhea. The patient was given 0.5 of Ativan along with 10 mEq of potassium. Patient feels better and will be discharged. She denies any homicidal or suicidal ideations at this point in time. History provided by: Patient [place] Coma Scale Score: 15 Patient History Past Medical History: Diagnosis Date Encounter for full-term uncomplicated delivery NVD (normal vaginal delivery) Encounter for gynecological examination (general) (routine) without abnormal findings Pap test, as part of routine gynecological examination Encounter for test, result positive 08/21/2019 Positive urine test Other conditions influencing health status Menstruation Past Surgical History: Procedure Laterality Date OTHER SURGICAL HISTORY 08/19/2019 Appendectomy No family history on file. Social History Tobacco Use Smoking status: Not on file Smokeless tobacco: Not on file Substance Use Topics Alcohol use: Not on file Drug use: Not on file Physical Exam ED Triage Vitals [12/12/23 0207] Temperature Heart Rate Respirations BP 36.1 C (96.9 F) 90 20 (!) 150/110 Pulse Ox Temp Source Heart Rate Source Patient Position 99 % Temporal Monitor -- BP Location FiO2 (%) -- -- Physical Exam Vitals and nursing note reviewed. Constitutional: General: She is not in acute distress. Appearance: She is well-developed. HENT: Head: Normocephalic and atraumatic. Eyes: Conjunctiva/sclera: Conjunctivae normal. Cardiovascular: Rate and Rhythm: Regular rhythm. Tachycardia present. Heart sounds: No murmur heard. Pulmonary: Effort: Pulmonary effort is normal. No respiratory distress. Breath sounds: Normal breath sounds. Abdominal: Palpations: Abdomen is soft. Tenderness: There is no abdominal tenderness. Musculoskeletal: General: No swelling. Cervical back: Neck supple. Skin: General: Skin is warm and dry. Capillary Refill: Capillary refill takes less than 2 seconds. Coloration: Skin is pale. Neurological: Mental Status: She is alert. Psychiatric: Mood and Affect: Mood is anxious. Labs Reviewed CBC WITH AUTO DIFFERENTIAL - Abnormal Result Value WBC 9.3 nRBC 0.0 RBC 4.41 Hemoglobin 11.1 (*) Hematocrit 36.0 MCV 82 MCH 25.2 (*) MCHC 30.8 (*) RDW 18.0 (*) Platelets 262 Neutrophils % 42.3 Immature Granulocytes %, Automated 0.1 Lymphocytes % 48.8 Monocytes % 6.4 Eosinophils % 2.1 Basophils % 0.3 Neutrophils Absolute 3.92 Immature Granulocytes Absolute, Automated 0.01 Lymphocytes Absolute 4.52 Monocytes Absolute 0.59 Eosinophils Absolute 0.19 Basophils Absolute 0.03 COMPREHENSIVE METABOLIC PANEL - Abnormal Glucose 96 Sodium 134 (*) Potassium 3.3 (*) Chloride 105 Bicarbonate 23 Anion Gap 9 (*) Urea Nitrogen 10 Creatinine 0.66 eGFR >90 Calcium 9.1 Albumin 4.4 Alkaline Phosphatase 50 Total Protein 7.1 AST 14 Bilirubin, Total 0.4 ALT 20 MAGNESIUM - Normal Magnesium 1.93 LACTATE - Normal Lactate 0.9 Narrative: Venipuncture immediately after or during the administration of Metamizole may lead to falsely low results. Testing should be performed immediately prior to Metamizole dosing. D-DIMER, NON VTE - Normal D-Dimer Non VTE, Quant (ng/mL FEU) <215 Narrative: The D-Dimer assay is reported in ng/mL Fibrinogen Equivalent Units (FEU). The results of this assay should NOT be used for the exclusion of Deep Vein Thrombosis and/or Pulmonary Embolism. ED Course & MDM ED Course as of 12/12/23 0401 Mon Dec 12, [id number] Twelve-lead EKG interpreted at 0210 1 sinus tachycardia at 115 2 normal axis 3 no ectopy [MS] ED Course User Index [MS] Silvia Guzman DO Diagnoses as of 12/12/23400 depression Medical Decision Making Call family medical doctor for possible medication adjustment. If symptoms worsen return to ED. Procedure Procedures Silvia Guzman DO 12/12/23401 documented in this encounter [facility] Work Phone: 12-12-2023 Physician Emergency department Note HPI Chief Complaint Patient presents with Shortness of Breath Pt has been having episodic SOB along with flushing for 1 day. States like a panic attack but much worse. Reports some neck discomfort during these episodes but no chest pain. Reports hyperventilation and numbness to arms. 23-year-old female who is 1 month presents with what she describes as hyperventilation and anxiety attack. Patient was started on Zoloft 3 days ago and feels it is not helping. Patient is 4 para 4. Patient denies any nausea or vomiting. Patient states she has never had an episode this severe in the past. She denies any nausea, vomiting or diarrhea. The patient was given 0.5 of Ativan along with 10 mEq of potassium. Patient feels better and will be discharged. She denies any homicidal or suicidal ideations at this point in time. History provided by: Patient [place] Coma Scale Score: 15 Patient History Past Medical History: Diagnosis Date Encounter for full-term uncomplicated delivery NVD (normal vaginal delivery) Encounter for gynecological examination (general) (routine) without abnormal findings Pap test, as part of routine gynecological examination Encounter for test, result positive 08/21/2019 Positive urine test Other conditions influencing health status Menstruation Past Surgical History: Procedure Laterality Date OTHER SURGICAL HISTORY 08/19/2019 Appendectomy No family history on file. Social History Tobacco Use Smoking status: Not on file Smokeless tobacco: Not on file Substance Use Topics Alcohol use: Not on file Drug use: Not on file Physical Exam ED Triage Vitals [12/12/23 0207] Temperature Heart Rate Respirations BP 36.1 C (96.9 F) 90 20 (!) 150/110 Pulse Ox Temp Source Heart Rate Source Patient Position 99 % Temporal Monitor -- BP Location FiO2 (%) -- -- Physical Exam Vitals and nursing note reviewed. Constitutional: General: She is not in acute distress. Appearance: She is well-developed. HENT: Head: Normocephalic and atraumatic. Eyes: Conjunctiva/sclera: Conjunctivae normal. Cardiovascular: Rate and Rhythm: Regular rhythm. Tachycardia present. Heart sounds: No murmur heard. Pulmonary: Effort: Pulmonary effort is normal. No respiratory distress. Breath sounds: Normal breath sounds. Abdominal: Palpations: Abdomen is soft. Tenderness: There is no abdominal tenderness. Musculoskeletal: General: No swelling. Cervical back: Neck supple. Skin: General: Skin is warm and dry. Capillary Refill: Capillary refill takes less than 2 seconds. Coloration: Skin is pale. Neurological: Mental Status: She is alert. Psychiatric: Mood and Affect: Mood is anxious. Labs Reviewed CBC WITH AUTO DIFFERENTIAL - Abnormal Result Value WBC 9.3 nRBC 0.0 RBC 4.41 Hemoglobin 11.1 (*) Hematocrit 36.0 MCV 82 MCH 25.2 (*) MCHC 30.8 (*) RDW 18.0 (*) Platelets 262 Neutrophils % 42.3 Immature Granulocytes %, Automated 0.1 Lymphocytes % 48.8 Monocytes % 6.4 Eosinophils % 2.1 Basophils % 0.3 Neutrophils Absolute 3.92 Immature Granulocytes Absolute, Automated 0.01 Lymphocytes Absolute 4.52 Monocytes Absolute 0.59 Eosinophils Absolute 0.19 Basophils Absolute 0.03 COMPREHENSIVE METABOLIC PANEL - Abnormal Glucose 96 Sodium 134 (*) Potassium 3.3 (*) Chloride 105 Bicarbonate 23 Anion Gap 9 (*) Urea Nitrogen 10 Creatinine 0.66 eGFR >90 Calcium 9.1 Albumin 4.4 Alkaline Phosphatase 50 Total Protein 7.1 AST 14 Bilirubin, Total 0.4 ALT 20 MAGNESIUM - Normal Magnesium 1.93 LACTATE - Normal Lactate 0.9 Narrative: Venipuncture immediately after or during the administration of Metamizole may lead to falsely low results. Testing should be performed immediately prior to Metamizole dosing. D-DIMER, NON VTE - Normal D-Dimer Non VTE, Quant (ng/mL FEU) <215 Narrative: The D-Dimer assay is reported in ng/mL Fibrinogen Equivalent Units (FEU). The results of this assay should NOT be used for the exclusion of Deep Vein Thrombosis and/or Pulmonary Embolism. ED Course & MDM ED Course as of 12/12/23 0401 TueDec 12, [id number] Twelve-lead EKG interpreted at 0210 1 sinus tachycardia at 115 2 normal axis 3 no ectopy [MS] ED Course User Index [MS] Silvia Guzman DO Diagnoses as of 12/12/23 0401 depression Medical Decision Making Call family medical doctor for possible medication adjustment. If symptoms worsen return to ED. Procedure Procedures Silvia Guzman DO 12/12/23 040 [facility] Work Phone: 12-08-2023 Note HNO ID: [id number] Author: GERARDO CASTELLON MD Service: ? Author Type: Physician Type: Progress Notes Filed: 12/15/2023 19:15 Note Text: VISIT Katie Smith is a 23 year old year old here for visit. Delivery Summary: ROS/ Recovery: Feeding: Breast and bottle feeding problems: None Menses since delivery: spotting Menstrual pattern prior to : Irregular periods [place] since delivery: Resumed Depression: admits to symptoms of depression. OB Depression and Anxiety Screening- This Encounter (since 12/07/2023) Over the past 2 weeks have you felt down, depressed, or hopeless? Positive - Further Testing Indicated Over the past two weeks, have you felt little interest or pleasure in doing things?? Negative I have been able to laugh and see the funny side of things. As much as I always could I have looked forward with enjoyment to things. Rather less than I used to I have blamed myself unnecessarily when things went wrong. Not very often I have been anxious or worried for no good reason. Yes, sometimes I have felt scared or panicky for no good reason. Yes, sometimes Things have been getting on top of me. Yes, sometimes I haven't been coping as well as usual I have been so unhappy that I have had difficulty sleeping. Yes, sometimes I have felt sad or miserable. Yes, quite often I have been so unhappy that I have been crying. Only occasionally The thought of harming myself has occurred to me. Never [place] Depression Scale Total 13 Feeling nervous, anxious or on edge 1-Several days Not being able to stop or control worrying 0-Not al all Anxiety Pre-Screening Total (If >/= 3 additional questions will be reviewed) 1 Emotional support: Yes Bowel symptoms: Negative for abdominal discomfort, blood in stools or black stools and change in bowel habits Abdomen: N/A Bladder symptoms: No dysuria, gross hematuria, urinary frequency, urinary urgency, or incontinence Other issues: None Last Pap: 2022 normal HPV: N/A PAST MEDICAL HISTORY Diagnosis Date Anemia Depression Fracture of upper extremity left arm age 10 Headache following intrapartum spinal anesthesia 04/28/2023 depression Trauma PAST SURGICAL HISTORY Procedure Laterality Date APPENDECTOMY PAST SURGICAL HISTORY OF Left x3 on left arm-hardware placed FAMILY HISTORY Problem Relation Age of Onset other (hysterectomy) Mother Hypertension Father No Known Problems Sister No Known Problems Sister No Known Problems Sister No Known Problems Sister No Known Problems Brother Hypertension Maternal Grandmother Diabetes Maternal Grandmother Diabetes Maternal Grandfather Diabetes Paternal Grandmother Hypertension Paternal Grandfather No Known Problems Son No Known Problems Son No Known Problems Daughter Social History Tobacco Use Smoking status: Former Years: 6 Types: Cigarettes Quit date: 04/22/2022 Years since quittin.6 Smokeless tobacco: Never Vaping Use Vaping Use: current everyday user Substances: Nicotine Substance Use Topics Alcohol use: Not Currently Comment: Rarely Drug use: Never PHYSICAL EXAMINATION: Ht 5' 3.5 (1.61m) Wt 163 lb (73.9kg) BMI 28.42 kg/(m2). GENERAL: pleasant, female in no apparent distress HEENT: Normocephalic and atraumatic NECK: full range of motion DERMATOLOGY: Normal, without lesions, non-icteric, and non-hirsute BREAST: soft, non-tender, symmetric, no dominant mass, normal nipple-areolar complex, no lymphadenopathy, and no nipple discharge CHEST: Normal inspiratory effort ABDOMEN: soft, non-tender, and no masses. INCISION: N/A PELVIC: external genitalia normal, normal Bartholin's glands, urethra, [place]'s glands, no vulvar lesions, no cervical lesions, good vaginal support, physiologic discharge present, normal appearing perineal body and perianal region BIMANUAL: uterus normal size, shape and consistency, no adnexal masses, and non-tender NEURO: exam grossly non-focal EXTREMITIES: normal ASSESSMENT AND PLAN: 23 year old status post with normal course. - Start Zoloft after discussion of r/b/a Contraception plan: POP Follow up: RTC for annual exams and PRN Gerardo Castellon DO [facility] 12-08-2023 History of Presen t illness Narrative VISIT Katie Smith is a 23 year old year old here for visit. Delivery Summary: ROS/ Recovery: Feeding: Breast and bottle feeding problems: None Menses since delivery: spotting Menstrual pattern prior to : Irregular periods [place] since delivery: Resumed Depression: admits to symptoms of depression. OB Depression and Anxiety Screening- This Encounter (since 12/07/2023) Over the past 2 weeks have you felt down, depressed, or hopeless? Positive - Further Testing Indicated Over the past two weeks, have you felt little interest or pleasure in doing things? Negative I have been able to laugh and see the funny side of things. As much as I always could I have looked forward with enjoyment to things. Rather less than I used to I have blamed myself unnecessarily when things went wrong. Not very often I have been anxious or worried for no good reason. Yes, sometimes I have felt scared or panicky for no good reason. Yes, sometimes Things have been getting on top of me. Yes, sometimes I haven't been coping as well as usual I have been so unhappy that I have had difficulty sleeping. Yes, sometimes I have felt sad or miserable. Yes, quite often I have been so unhappy that I have been crying. Only occasionally The thought of harming myself has occurred to me. Never [place] Depression Scale Total 13 Feeling nervous, anxious or on edge 1-Several days Not being able to stop or control worrying 0-Not al all Anxiety Pre-Screening Total (If >/= 3 additional questions will be reviewed) 1 Emotional support: Yes Bowel symptoms: Negative for abdominal discomfort, blood in stools or black stools and change in bowel habits Abdomen: N/A Bladder symptoms: No dysuria, gross hematuria, urinary frequency, urinary urgency, or incontinence Other issues: None Last Pap: 2022 normal HPV: N/A PAST MEDICAL HISTORY Diagnosis Date Anemia Depression Fracture of upper extremity left arm age 10 Headache following intrapartum spinal anesthesia 04/28/2023 depression Trauma PAST SURGICAL HISTORY Procedure Laterality Date APPENDECTOMY PAST SURGICAL HISTORY OF Left x3 on left arm-hardware placed FAMILY HISTORY Problem Relation Age of Onset other (hysterectomy) Mother Hypertension Father No Known Problems Sister No Known Problems Sister No Known Problems Sister No Known Problems Sister No Known Problems Brother Hypertension Maternal Grandmother Diabetes Maternal Grandmother Diabetes Maternal Grandfather Diabetes Paternal Grandmother Hypertension Paternal Grandfather No Known Problems Son No Known Problems Son No Known Problems Daughter Social History Tobacco Use Smoking status: Former Years: 6 Types: Cigarettes Quit date: 04/22/2022 Years since quittin.6 Smokeless tobacco: Never Vaping Use Vaping Use: current everyday user Substances: Nicotine Substance Use Topics Alcohol use: Not Currently Comment: Rarely Drug use: Never PHYSICAL EXAMINATION: Ht 5' 3.5 (1.61m) Wt 163 lb (73.9kg) BMI 28.42 kg/(m^2). GENERAL: pleasant, female in no apparent distress HEENT: Normocephalic and atraumatic NECK: full range of motion DERMATOLOGY: Normal, without lesions, non-icteric, and non-hirsute BREAST: soft, non-tender, symmetric, no dominant mass, normal nipple-areolar complex, no lymphadenopathy, and no nipple discharge CHEST: Normal inspiratory effort ABDOMEN: soft, non-tender, and no masses. INCISION: N/A PELVIC: external genitalia normal, normal Bartholin's glands, urethra, [place]'s glands, no vulvar lesions, no cervical lesions, good vaginal support, physiologic discharge present, normal appearing perineal body and perianal region BIMANUAL: uterus normal size, shape and consistency, no adnexal masses, and non-tender NEURO: exam grossly non-focal EXTREMITIES: normal ASSESSMENT AND PLAN: 23 year old status post with normal course. - Start Zoloft after discussion of r/b/a Contraception plan: POP Follow up: RTC for annual exams and PRN Gerardo Castlelon DO documented in this encounter [facility] 10-27-2023 Note HNO ID: [id number] Author: Hilda Perez RN Service: ? Author Type: Registered Nurse Type: Progress Notes Filed: 10/27/2023 11:01 AM Note Text: Patient delivered via at [facility] on 10/27/23 per Rhona Edge MD. See OB Outcome note. Hilda Perez RN [facility] 10-27-2023 History of Presen t illness Narrative Patient delivered via at [facility] on 10/27/23 per Rhona Edge MD. See OB Outcome note. Hilda Perez RN documented in this encounter [facility] 10-25-2023 Miscellaneous Notes RR- VB No. LOF No. CTXS No. Movement: present. Other c/o: No. Medication list reviewed. Physical Exam See Flow Sheet Abd: soft, nontender, gravid Ext: edema: Trace A/P 37w0d Estimated Date of Delivery: 11/15/23 Labs: GBS done Labor precautions anemia- cont. fe and pNV, has been taking intermittently. Pa Gray M.D. documented in this encounter [facility] 10-25-2023 Aminata Keen Ma - 10/25/2023 8:26 AM EST SEQUENTIAL SCREENINGS The [facility] offers sequential screenings for women who are [...] will require an appointment with our community development technician. This is not an ultrasound performed [...] the above symptoms, contact our office at [phone] and ask to speak with a nurse. After hours, you can call doctors registry at [phone] OR call [facility] at [phone] and ask to have the doctor admission discharge rn paged. If you consider this an emergency, dial 9--8 or go to your nearest emergency department. NEED HELP? Are you dealing with a violent or abusive relationship? Are you a victim of rape or sexual assult? Call [facility] ([place]) 24 hour Crisis Hotline: 874.222.8032 or 755-620-7791. MANUAL Your Guide to a Healthy manual is now on-line. Visit [email or web address] to download your free copy documented in this encounter [facility] 10-17-2023 Note HNO ID: [id number] Author: Sofya Fisher, FRANCHESCA Service: ? Author Type: Registered Nurse Type: Progress Notes Filed: 10/17/2023 1:34 PM Note Text: Unable to obtain PA for Venofer infusions. Insurance is inactive and therefore denied. Referring provider notified. [facility] 09-19-2023 Note HNO ID: [id number] Author: Gerardo Castellon MD Service: ? Author Type: Physician Type: Progress Notes Filed: 09/19/2023 12:05 PM Note Text: Signed [facility] 09-19-2023 History of Presen t illness Narrative Signed documented in this encounter [facility] 09-13-2023 Note HNO ID: [id number] Author: Sofya Fisher RN Service: ? Author [...] provider for review and evaluation for treatment. [facility] 09-13-2023 History of Presen t illness Narrative [...] evaluation for treatment. documented in this encounter [facility] 09-05-2023 Note HNO ID: [id number] Author: Edwige Solomon RN Service: ? Author Type: ? Type: Progress Notes Filed: 09/05/2023 5:20 PM Note Text: Katie Smith 23 year old is here for her injection of Rhophylac. Katie Harpreet Antibody Screen (no units) Date Value 05/18/2023 Negative Katie Smith is RH Negative Rhophylac was given without incident. See immunizations for details of immunizations administered today. Provider Dr. Castellon was present in office at time of injection Katie Smith was given her Rhophylac pocket card. Edwige Solomon RN [facility] 09-05-2023 Note HNO ID: [id number] Author: Maria C Jimenez MA Service: ? Author Type: Spice Grinder Type: Progress Notes Filed: 09/05/2023 5:20 PM Note Text: Patient identified by name and date of . Katie Smith presents today for a vaccination of Tdap. Patient denies an allergy to latex: yes Patient denies a severe (life-threatening) allergy to a previous dose of Tdap, DTP, DTaP, DT or Td vaccine. Yes Patient denies history of epilepsy or neurological problems: Yes Patient is afebrile and denies being moderately or severely ill: Yes Patient denies history of Guillain-Stanberry Syndrome (a severe paralytic illness): Yes Tdap Adacel injection was given without incident. See immunizations for details of immunizations administered today. VIS sheet provided: Yes Provider Gerardo Castellon DO was present in office at time of injection. Maria C Jimenez MA [facility] 09-05-2023 History of Presen t illness Narrative Katie Smith 23 year old is here for her injection of Rhophylac. Katie Smith Antibody Screen (no units) Date Value 05/18/2023 Negative Katie Smith is RH Negative Rhophylac was given without incident. See immunizations for details of immunizations administered today. Provider Dr. Castellon was present in office at time of injection Katie Smith was given her Rhophylac pocket card. Edwige Solomon RN Patient identified by name and date of . Katie Smith presents today for a vaccination of Tdap. Patient denies an allergy to latex: yes Patient denies a severe (life-threatening) allergy to a previous dose of Tdap, DTP, DTaP, DT or Td vaccine. Yes Patient denies history of epilepsy or neurological problems: Yes Patient is afebrile and denies being moderately or severely ill: Yes Patient denies history of Guillain-Stanberry Syndrome (a severe paralytic illness): Yes Tdap Adacel injection was given without incident. See immunizations for details of immunizations administered today. VIS sheet provided: Yes Provider Gerardo Castellon DO was present in office at time of injection. Maria C Jimenez MA documented in this encounter [facility] 09-05-2023 Miscellaneous Notes SW- No ctx, vb, lof. Good FM [...] Gerardo Castellon DO documented in this encounter [facility] 09-05-2023 Instructions Gerardo Castellon MD - 09/05/2023 1:49 PM EDT SEQUENTIAL SCREENINGS The [facility] offers sequential screenings for women who are [...] will require an appointment with our community development technician. This is not an ultrasound performed [...] the above symptoms, contact our office at [phone] and ask to speak with a nurse. After hours, you can call doctors registry at [phone] OR call [facility] at [phone] and ask to have the doctor admission discharge rn paged. If you consider this an emergency, dial 9-1-1 or go to your nearest emergency department. NEED HELP? Are you dealing with a violent or abusive relationship? Are you a victim of rape or sexual assult? Call [facility] ([place]) 24 hour Crisis Hotline: 675.921.9018 or 700-566-8785. MANUAL Your Guide to a Healthy manual is now on-line. Visit [email or web address] to download your free copy In person and online childbirth options: 1) [facility] Online Virtual Childbirth and Class. -Please call to register and for more information: [phone] and register for our online classes they are $40 for both or $20 for just the class ?? 2) [facility] Online Childbirth Education, , and classes: [email or web address] 3) Here is a list of online childbirth education and resources. [facility] has online childbirth, , and parenting classes. [email or web address]://[email or web address].[email or web address]. [email or web address], type in childbirth https://[email or web address].com/ childbirth-class/ https://[email or web address]-.Medical Referral [email or web address]/p/[email or web address] [email or web address]/ documented in this encounter [facility] 07-01-2023 Miscellaneous Notes S: Katie Smith is a 23 year old female [...] Connie Sanders APRN.CNM documented in this encounter [facility] 07-01-2023 Rey Amezcua Cma - 07/01/2023 1:54 PM EDT SEQUENTIAL SCREENINGS The [facility] offers sequential screenings for women who are [...] will require an appointment with our community development technician. This is not an ultrasound performed [...] the above symptoms, contact our office at [phone] and ask to speak with a nurse. After hours, you can call doctors registry at [phone] OR call [facility] at [phone] and ask to have the doctor admission discharge rn paged. If you consider this an emergency, dial 5-0-9 or go to your nearest emergency department. NEED HELP? Are you dealing with a violent or abusive relationship? Are you a victim of rape or sexual assult? Call [facility] ([place]) 24 hour Crisis Hotline: 469.380.9922 or 428-348-7136. MANUAL Your Guide to a Healthy manual is now on-line. Visit [email or web address] to download your free copy documented in this encounter [facility] 05-26-2023 Miscellaneous Notes ARBEN-See progress note. Juliana Lucas APRN.CNM documented in this encounter [facility] 05-18-2023 Note HNO ID: [id number] Author: Juliana Lucas APRN.CNM Service: ? Author Type: Sand Mill Operator Core Sand Type: Progress Notes Filed: 05/26/2023 1:44 PM Note Text: INITIAL OB ASSESSMENT It Program Manager offered: Patient declines. Obstetric History T3 L3 [...] Apgar5: Not recorded Living: Not recorded HPI: Katie is a 23 year old White here [...] use: No Multivitamin with Folic acid: Yes Samaritan or heritage: No Would refuse blood transfusion if medically necessary: No Are you currently employed? Yes, Occupation: [employer] in [place], [place] Do you have any history of [...] Tingling, Tremor, Anxie (more content not included)... [facility] 05-18-2023 History of Presen t illness Narrative Images from the original note were not included. INITIAL OB ASSESSMENT It Program Manager offered: Patient declines. Obstetric History T3 L3 [...] Apgar5: Not recorded Living: Not recorded HPI: Katie is a 23 year old White here [...] use: No Multivitamin with Folic acid: Yes Samaritan or heritage: No Would refuse blood transfusion if medically necessary: No Are you currently employed? Yes, Occupation: [employer] in [place], [place] Do you have any history of [...] Screening: Completed, no positive findings documented. SBIRT Katie Smith was given the 4P's screening tool. Katie answered as follows: OB Opioid Screening - [...] behavior. Plan to rescreen early third trimester. Juliana Lucas APRN.CNM ASSESSMENT: 23 year old at 13w6d wks gestational age PLAN: 1) Patient oriented to practice. Patient given new OB orientation folder. Discussed nutrition, folic acid supplementation, dietary guidelines, exercise, smoking, alcohol, caffeine, and drug use. Discussed gestational weight gain guidelines. Discussed routine OB labs including STD/HIV. Discussed how to access Your guide to a health and the Alcoholic Counselor. Discussed aneuploidy and carrier screening. Regarding aneuploidy [...] hemoglobin electrophoresis. Patient: Accepts Reviewed midwifery and outside sales representative insurance services that are available. 2) Consult women's behavioral health for depression. 3) Unsure LMP, unplanned . Dating US soonest appointment. 4) Anatomy US at 20 weeks Follow up in 4 weeks or sooner prn. Juliana Lucas APRN.CNM documented in this encounter [facility] 05-18-2023 Instructions Kathleen Van Ma - 05/18/2023 12:56 PM EDT Please select the following link to access the [facility] Your Guide to a Healthy . [email or web address] documented in this encounter [facility] 04-28-2023 Note HNO ID: [id number] Author: Shae Smith RN Service: ? Author [...] None, Apgar5: None, Living: None, Comments: None [facility] 04-28-2023 History of Presen t illness Narrative [...] None, Comments: None documented in this encounter [facility] 04-28-2023 Miscellaneous Notes DISTANCE HEALTH VISIT This Team Access Model visit is a phone encounter. It required patient-provider interaction for the medical decision making as documented below. Father of the baby involved. He is the father of her last 2 children. She delivered her other 3 children in [place]. Some information is available in care everywhere. I have asked her to contact [facility] in [place] and ask for her delivery operative reports to be faxed here. Our fax number was provided to the patient. Records sent to Dr. Castellon's office for review. Patient was seen at [facility] on March 31 for pelvic pain. [...] testing.Shae Smith RN documented in this encounter [facility] 04-28-2023 Miscellaneous Notes Pt scheduled for 05/02/23. Nancy Field LPN Agree with PCP eval Patient had prenew OB appointment on the telephone today. She is 11 weeks. New to [facility]. Somebody had previously placed a hold on Dr. Castellon's May 02 1:30 PM time for a new OB for her. I am sending financial counselor a note to okay appointment. Please watch for approval so we can schedule her.Also Dr Castellon patient is new to [facility]. She states that she has noted shortness [...] is further advice documented in this encounter [facility] 05[facility] History of Presen t illness Narrative Patient presents stating that she has not had a menstrual flow since May. Denies any vaginal bleeding or cramps. She has some nausea and breast tenderness for several weeks. [place] [address] [employer] Work Phone: Evaluation note Constitutional: aler t, orientedRespiratory/Thorax: normal respiratory effort, lungs clear, no wheezes or rhonchiCardiovascular: S1 S2 RRR, no murmursExtremities: no calf tenderness, reflexes 2+ [facility] Diagnosis Encounter for screening for malignant neoplasm of cervix- Primary Screening for malignant neoplasm of the cervix Supervision of other normal , antepartum History of depression [facility] Diagnosis 20 weeks gestation of - Primary state, incidental Encounter for supervision of normal first in second trimester Supervision of normal first [facility] Diagnosis Encounter for anatomic survey- Primary Supervision of other normal , antepartum 20 weeks gestation of state, incidental [facility] Diagnosis 29 weeks gestation of - Primary state, incidental Encounter for supervision of normal first in second trimester Supervision of normal first Need for vaccination Need for prophylactic vaccination and inoculation against unspecified single disease Rh negative state in antepartum period Rhesus isoimmunization affecting management of mother, antepartum condition [facility] Diagnosis Maternal iron deficiency anemia complicating , third trimester Impaired intestinal absorption Unspecified intestinal malabsorption [facility] Diagnosis 37 weeks gestation of - Primary state, incidental Anemia complicating , third trimester Supervision of high risk in third trimester Unspecified high-risk [facility]* Diagnosis depression- Primary Mental disorders of mother, complicating , childbirth, or the puerperium, unspecified as to episode of care documented in this encounter [facility] Work Phone: Evaluation note* Diagnosis Anemia, - Primary care and examination Routine follow-up History of depression Anxiety neurosis Anxiety state, unspecified Encounter for initial prescription of contraceptive pills General counseling for prescription of oral contraceptives [facility]* Diagnosis Viral illness- Primary Unspecified viral infection, in conditions classified elsewhere and of unspecified site documented in this encounter [facility] Work Phone: Evaluation note* Diagnosis Epigastric pain- Primary Abdominal pain, epigastric Cyst of left ovary Other and unspecified ovarian cyst Elevated blood pressure reading Elevated blood pressure reading without diagnosis of hypertension documented in this encounter [facility] Work Phone: Evaluation note* Diagnosis Shortness of breath- Primary documented in this encounter [facility] Work Phone: Hospital Discharge instructions* Activity:Return to normal activity as [...] symptoms worsen, call 911 [facility]. *Information obtained from DONTA curry: Save Your Life: Get Care for These POST- Warning SignsOn Behalf on the [facility], Congratulations on your . It [...] concerns. Again, Congratulations![facility]* Attachments The following attachments cannot be sent through Care Everywhere. * _Viral Infection, [facility] ([place]) [facility]charge [facility]* Attachments The following attachments cannot be sent through Care Everywhere. * Abdominal pain (Surinamese) * Ovarian Cyst ED (Surinamese) * High Blood Pressure ED ([place]amese) [facility]: Hospital Discharge instructions* Attachments The following attachments cannot be sent through Care Everywhere. * Shortness of Breath, Adult ED ([place]amese) [facility] Work [facility]: Reason for referral (narrative)* Diagnostic Procedure Only (Routine) - Authorized Specialty Diagnoses / Procedures Referred By Contac t Referred To Contact [facility] Diagnoses Supervision of other normal , antepartum Procedures OBSTETRIC ULTRASOUND WHI US PREG UTERUS AFTER 1ST TRIMEST GESTATION Juliana Lucas APRN.CNM [address] [place] [address] [facility] [address] [place] [address] Referral ID Status Reason Start Date Expiration Date Visits Requested Visits Authorized [id number] Authorized Auto-Generat ed Referral 05/18/2023 05/17/2024 1 1 [facility] for referral (narrative)* Consultation (Routine) - Authorized Specialty Diagnoses / Procedures Referred By Contac t Referred To Contact Family Medicine / Primary Care Yeyo Hubbard DO [address] [place] [address] Department [place] [address] Referral ID Status Reason Start Date Expiration Date Visits Requested Visits Authorized [id number] Authorized Specialty Services Required 01/06/2024 01/05/2025 1 1 [facility] Work Phone: Reason for referral (narrative)* Consultation (Routine) - Authorized Specialty Diagnoses / Procedures Referred By Minerva acuna Referred To Contact Family Medicine / Primary Care Yeyo Hubbard DO [address] [place] [address] Department [place] [address] Referral ID Status Reason Start Date Expiration Date Visits Requested Visits Authorized [id number] Authorized Specialty Services Required 01/06/2024 01/05/2025 1 1 [facility] Work Phone: Summary Purpose Family History No Family History [...] content) DATE CREATED AUTHOR AUTHOR'S ORGANIZ ATION 07/21/2021 [facility] DATE CREATED AUTHOR AUTHOR'S ORGANIZ ATION 04/15/2023 [facility] DATE CREATED AUTHOR AUTHOR'S ORGANIZ ATION 12/28/2023 [facility] DATE CREATED AUTHOR AUTHOR'S ORGANIZ ATION 01/08/2024 [facility] DATE CREATED AUTHOR AUTHOR'S ORGANIZ ATION 01/09/2024 [facility] DATE CREATED AUTHOR AUTHOR'S ORGANIZ ATION 01/09/2024 [facility] <item><item><item><item> Privacy Markings (unrecogniz ed section and [...] or prosecute any alcohol or drug abuse patient.[facility] the event this information is protected by the Federal Confidentiality of Alcohol and Drug Abuse Patient Records regulations: The Federal rules restrict any use of the information to criminally investigate or prosecute any alcohol or drug abuse patient.[facility] the event this information is protected by the Federal Confidentiality of Alcohol and Drug Abuse Patient Records regulations: The Federal rules restrict any use of the information to criminally investigate or prosecute any alcohol or drug abuse patient.[facility] the event this information is protected by the Federal Confidentiality of Alcohol and Drug Abuse Patient Records regulations: The Federal rules restrict any use of the information to criminally investigate or prosecute any alcohol or drug abuse patient.[facility] the event this information is protected by the Federal Confidentiality of Alcohol and Drug Abuse Patient Records regulations: The Federal rules restrict any use of the information to criminally investigate or prosecute any alcohol or drug abuse patient.[facility] the event this information is protected by the Federal Confidentiality of Alcohol and Drug Abuse Patient Records regulations: The Federal rules restrict any use of the information to criminally investigate or prosecute any alcohol or drug abuse patient.[facility] the event this information is protected by the Federal Confidentiality of Alcohol and Drug Abuse Patient Records regulations: The Federal rules restrict any use of the information to criminally investigate or prosecute any alcohol or drug abuse patient.[facility] the event this information is protected by the Federal Confidentiality of Alcohol and Drug Abuse Patient Records regulations: The Federal rules restrict any use of the information to criminally investigate or prosecute any alcohol or drug abuse patient.[facility] the event this information is protected by the Federal Confidentiality of Alcohol and Drug Abuse Patient Records regulations: The Federal rules restrict any use of the information to criminally investigate or prosecute any alcohol or drug abuse patient.[facility] the event this information is protected by the Federal Confidentiality of Alcohol and Drug Abuse Patient Records regulations: The Federal rules restrict any use of the information to criminally investigate or prosecute any alcohol or drug abuse patient.[facility] the event this information is protected by the Federal Confidentiality of Alcohol and Drug Abuse Patient Records regulations: The Federal rules restrict any use of the information to criminally investigate or prosecute any alcohol or drug abuse patient.[facility] the event this information is protected by the Federal Confidentiality of Alcohol and Drug Abuse Patient Records regulations: The Federal rules restrict any use of the information to criminally investigate or prosecute any alcohol or drug abuse patient.[facility] the event this information is protected by the Federal Confidentiality of Alcohol and Drug Abuse Patient Records regulations: The Federal rules restrict any use of the information to criminally investigate or prosecute any alcohol or drug abuse patient.[facility] Reason for Visit (unrecogniz ed section and content) Reason Comments Care Specialty Diagnoses / Procedures Referred By Contac t Referred To Contact [employer]PERATIONS MANAGER Diagnoses PNOB Procedures PNOB Self Program Train[employer] [address] [place] [address] Referral ID Status Reason Start Date Expiration Date Visits Requested Visits Authorized [id number] Authorized Financial Clearance Required - Self Pay Patient Cleared - Qualified 100% FAS 2023 07/24/2023 99 99 Reason Comments Initial OB Visit Specialty Diagnoses / Procedures Referred By Contac t Referred To Contact GEOTHERM[employer] OPERATIONS MANAGER Diagnoses PNOB Procedures PNOB Self Program [employer] [address] [place] [address] Referral ID Status Reason Start Date Expiration Date V isits Requested Visits Authorized [id number] Closed Financial Clearance Required - Self Pay Patient Cleared - Qualified 100% FAS 2023 07/24/2023 99 99 Reason Onset Date Comments Care 07/01/2023 Reason Comments US Specialty Diagnoses / Procedures Referred By Contac t Referred To Contact [facility] Diagnoses Supervision of other normal , antepartum Procedures OBSTETRIC ULTRASOUND WHI US PREG UTERUS AFTER 1ST TRIMEST GESTATION Juliana Lucas APRN.CN [address] [place] [address] [facility] [address] [place] [address] Referral ID Status Reason Start Date Expiration Date V isits Requested Visits Authorized [id number] Closed Auto-Generate d Referral 05/18/2023 05/17/2024 1 1 Reason Onset Date Comments Care 09/05/2023 Reason Comments Blood Management Reason Onset Date Comments Care 10/25/2023 Reason Comments Ob Delivery Note Reason Comments Shortness of Breath Pt has been having e pisodic SOB along with flushing for 1 day. States like a panic attack but much worse. Reports some neck discomfort during these episodes but no chest pain. Reports hyperventilation and numbness to arms. Reason Comments Routine Reason Comments , possible panic attacks Reason Comments Lower Extremity Issue Pt comes in for mu ltiple complaints. Pt has been having right calf pain that has been going up her leg. Pt states she is also having a stabbing sensation in her throat that goes into bilateral ear. Pt also endorses bilateral elbow pain x 2 wks. Sore Throat Elbow Pain Reason Comments Abdominal Pain Pt states for the la st couple weeks, she's had epigastric abdominal paint that goes into her upper to mid back, also nausea. States she was seen previously for this but was told it was anxiety, states that it never really went away since being seen. Recently had a baby 2 months ago. Reason Comments Shortness of Breath Patient states she w as seen here last night for abdominal pain, complains of shortness of breath and feels like her heart is racing since noon today Scheduled Active and Recently Administ davidd Medications (unrecognized section and content) Scheduled Medication Order 01/04/2024 01/05/2024 01/06/2024 HYDROmorphone (Dilaudid) injection 0.5 mg (COMPLETED) 0.5 mg, intravenous, Once, On Tue01/06/24 at 0215, For 1 dose 0232 (Given - Provid er: Ana Back RN) iohexol (OMNIPaque) 350 mg iodine/mL solution 68 mL (COMPLETED) 68 mL, intravenous, Once in imaging, Starting on Tue01/06/24 at 0215, For 1 dose 0233 (Given - Provid er: Giselle Brito) morphine injection 4 mg (COMPLETED) 4 mg, intravenous, Once, On Tue01/06/24 at 0115, For 1 dose 0131 (Given - Provid er: Ana Back RN) ondansetron (Zofran) injection 4 mg (COMPLETED) 4 mg, intravenous, Once, On Tue01/06/24 at 0115, For 1 dose, When administering via IV Push, administer over 3-5 minutes. 0128 (Given - Provid er: Ana Back RN) sodium chloride 0.9 % bolus 1,000 mL (COMPLETED) 1,000 mL, intravenous, at 1,000 mL/hr, Administer over 1 Hours, Once, On Tue01/06/24 at 0115, For 1 dose 0128 (New Bag - Prov ider: Ana Back RN)0240 (Stopped - Provider: Ana Back RN) Care Teams (unrecognized sec tion and content) Counter Hand Relationship Specialty Start Date End Date Generic Provider, No Assigned PcpMD [address] [place] [address] PCP - General 12/12/23 Counter Hand Relationship Specialty Start Date End Date Generic Provider, No Assigned PcpMD [address] [place] [address] PCP - General 12/12/23 Counter Hand Relationship Specialty Start Date End Date Generic Provider, No Assigned PcpMD [address] [place] [address] PCP - General 12/12/23 Counter Hand Relationship Specialty Start Date End Date Generic Provider, No Assigned MD Inessa [address] [place] [address] PCP - General 12/12/23 FOR RECORDS PERTAINING TO PATIENTS WHO ARE [...] BE BASED ON THE PRIMARY CLINICAL RECORDS. [facility]. provides no warranty or guarantee of the accuracy or completeness of information in this document.
--- NOTE | 2024-01-09 22:41 | CT_ITS ---
EXAM: CT ABDOMEN AND PELVIS WITH INTRAVENOUS CONTRAST CLINICAL INDICATION: Abdominal pain TECHNIQUE: Helically acquired images were obtained of the abdomen and pelvis with intravenous contrast. This CT exam was performed using one or more of the following dose reduction techniques: automated exposure control, adjustment of the mA and/or kV according to patient size, and/or use of iterative reconstruction technique. CONTRAST: IV 100mL Isovue-370 RADIATION DOSE: CTDIvol = 13.23 mGy, DLP = 849.50 mGy-cm COMPARISON: No relevant prior studies available. FINDINGS: LOWER THORAX: Unremarkable. Lung bases are clear. No cardiomegaly. No significant pericardial effusion. ABDOMEN: LIVER: Unremarkable. Homogeneous. No focal mass. GALLBLADDER AND BILE DUCTS: Unremarkable. No calcified gallstones. No gallbladder distention or wall edema. No intra- or extrahepatic biliary ductal dilation. PANCREAS: Unremarkable. No focal cystic or solid mass. SPLEEN: Unremarkable. Normal size without focal cystic or solid mass. ADRENALS: Unremarkable. No nodules. KIDNEYS AND URETERS: Unremarkable. Normal renal size and position. No hydronephrosis. STOMACH AND BOWEL: Unremarkable. No stomach or bowel distention. No focal inflammatory change. PELVIS: APPENDIX: Appendectomy. BLADDER: Unremarkable. REPRODUCTIVE: There is a 5.8 cm left ovarian simple appearing cyst. ABDOMEN and PELVIS: INTRAPERITONEAL SPACE: Unremarkable. No ascites or other fluid collection. No free air. BONES/JOINTS: Unremarkable. No suspicious lytic or blastic abnormality. SOFT TISSUES: Unremarkable. No discrete abdominal or pelvic wall hernia. VASCULATURE: Unremarkable. Abdominal aorta is non-dilated. LYMPH NODES: Unremarkable. No enlarged lymph nodes. CT/Abdomen/Pelvis W IV Cont ONLY IMPRESSION: There is a 5.8 cm left ovarian simple appearing cyst. ACR White Paper guidelines (Pollard, et. al. JACR 2020;17(2):248-254) recommend pelvic ultrasound follow-up in 6-12 months. Electronically Signed: Geronimo Newell MD at 0:07 EST ,
[2024-01-09] MEDS: Ondansetron 4 MG/2 ML Vial IV (22:56)
[2024-01-09] MEDS: Morphine 4 MG/ML Syringe IV (22:56)
[2024-01-09] MEDS: 0.9% Normal Saline (1000mL) 1,000 ML 1000 ML IV (22:56)
[2024-01-09 23:00] VITALS: BP 128/89; PULSE 68; RESP 18; O2SAT 100
[2024-01-09 23:12] LABS: Bacteria 0 SEEN /hpf (None Seen); Mucous, Urine 0 SEEN /hpf (<or=2+); Red Blood Cells-Urine 0 SEEN /hpf (0-5); Squamous Epithelial Cells - UA 0 SEEN /hpf (5-10); White Blood Cells 0 SEEN /hpf (0-5)
[2024-01-09 23:23] LABS: Absolute Lymphocyte Count 4.37 X10^3/uL (0.83-4.51); Absolute Neutrophil Count 4.4 X10^3/uL (2.0-7.7); Basophil# 0.04 X10^3/uL; Basophil% 0.4 % (0-1); Eosinophil# 0.16 X10^3/uL; Eosinophils% 1.7 % (0-5); Hematocrit 38.2 % (37-47); Hemoglobin 11.9 g/dL (12.0-15.0); Lymphocyte # 4.37 X10^3/ul (0.83-4.51); Lymphocyte % 45.8 % (19-41); Mean Corp Hgb Conc 31.2 g/dL (32-36); Mean Corpuscular Hgb 25.9 pg (27.0-32.0); Mean Platelet Vol. 10.3 fl (6.2-12.0); Monocyte% 5.2 % (0-10); NRBC Flagged by Analyzer 0 % (0-5); Neutrophil # 4.44 X10^3/uL (2.7-7.7); Neutrophil % 46.6 % (47-70); Platelet Count 300 K/mm3 (150-450); RBC Distribution Width CV 16.1 % (11.6-14.6); RBC Distribution Width SD 48.7 fl (35.1-43.9); White Blood Count 9.5 K/mm3 (4.4-11.0)
[2024-01-09 23:24] LABS: Color, Urine Yellow (Yellow); Glucose, Dipstick Normal (Normal); Ketone-Dipstick Negative (Negative); Leukocyte Esterase-Dipstick 25 /ul (Negative); Nitrite-Dipstick Negative (Negative); Occult Blood-Urine Negative /ul (Negative); Protein-Dipstick Negative (Negative); Specific Gravity, Urine 1.015 (1.002-1.030); Urine Bilirubin Dipstick Negative (Negative); Urine Clarity Clear (Clear); Urine Urobilinogen Normal (Normal)
[2024-01-09 23:32] LABS: Internal QC Validated? YES +Cl - CLEAR BKGD; Pregnancy, Serum, hCG Quali. NEGATIVE Negative
--- NOTE | 2024-01-09 23:38 | RAD_ITS ---
EXAM: XR CHEST, 2 VIEWS CLINICAL INDICATION: Cough TECHNIQUE: Frontal and lateral views of the chest. COMPARISON: No relevant prior studies available. FINDINGS: LUNGS AND PLEURAL SPACES: Unremarkable. No consolidation or edema. No pneumothorax. No effusion. HEART: Unremarkable. Cardiac silhouette not enlarged. MEDIASTINUM: Central airways and mediastinal contour are unremarkable. BONES/JOINTS: Unremarkable. No acute fracture. SOFT TISSUES: Unremarkable. RAD/Chest PA and Lateral IMPRESSION: No radiographic evidence of acute cardiopulmonary disease. Electronically Signed: eGronimo Newell MD at 0:03 EST ,
[2024-01-09 23:40] LABS: ALB/GLOB Ratio 1.1 RATIO (0.9-2.4); AST(SGOT) 11 U/L (15-37); Alanine Aminotransfer ALT/SGPT 28 U/L (13-56); Albumin, Serum 3.9 g/dL (3.2-5.0); Alkaline Phosphatase 58 U/L (45-117); Anion Gap 3 (5-15); BUN 13 mg/dL (7-18); BUN/Creat Ratio 19.3 RATIO (10-20); Calcium,Total 9.4 mg/dL (8.5-10.1); Chloride 110 mmol/L (98-107); Creatinine, Serum 0.67 mg/dL (0.55-1.02); EST Glomerular Filtration Rate 114 mL/min (>60); Est Glom Filt Rate - Afr Amer 138 mL/min (>60); Estimated Creatinine Clearance 129.45 ml/min; Globulin 3.5 g/dL (2.2-4.2); Glucose 93 mg/dL (74-106); Lipase 42 U/L (13-75); Potassium 3.6 mmol/L (3.5-5.1); Protein, Total 7.4 g/dL (6.4-8.2); Sodium Level 140 mmol/L (136-145)
[2024-01-10] MEDS: hydrOXYzine PAM 25 MG Capsule PO (00:17)
[2024-01-10 01:52] VITALS: BP 128/89; PULSE 68; RESP 18; TEMP 36.6; O2SAT 100
== END 2024-01-10 01:54 | disposition home or self-care (01) ==
PROVIDERS: Emergency Provider Emergency Medicine; Visit Provider Emergency Medicine
DX: B34.9 Viral infection, unspecified (principal); F17.200 Nicotine dependence, unspecified, uncomplicated
CPT/HCPCS: 71046; 74177; 80053; 81001; 83690; 84703; 85025; 87631; 96361; 96374; 96375; 99282; J7030; Q9967; A4216; J2405

== ENCOUNTER 2024-01-13 07:52 | Day surgery (SDC) | payer MEDICAID, SELFPAY ==
--- NOTE | 2024-01-10 13:00 | PCM.HP.BLA ---
History and Physical Date of Admission: 01/13/24 Pre-Op History and Physical ? HPI: The patient is a 23 year old female presenting for sterilization consultation. Title 19 previously signed. Pt does not desire future child bearing capabilities. Declines LARC. ? pre-operative visit. She is scheduled for laparoscopic bilateral salpingectomy, for desires sterilization on 01/13/24. Procedure discussed along with risks, benefits and complications. Other alternatives discussed for management. Consent form signed? Yes. ? ? PAST MEDICAL HISTORY PAST MEDICAL HISTORY Diagnosis Date ? Anemia ? ? Depression ? ? Fracture of upper extremity ? ? left arm age 10 ? Headache following intrapartum spinal anesthesia 04/28/2023 ? depression ? ? Trauma ? ? ? PAST SURGICAL HISTORY PAST SURGICAL HISTORY Procedure Laterality Date ? APPENDECTOMY ? ? ? PAST SURGICAL HISTORY OF Left ? ? x3 on left arm-hardware placed ? ? ? CURRENT MEDICATIONS Current Outpatient Medications Medication Sig Dispense Refill ? prental multivitamin 27 mg iron- 800 mcg tablet Take 1 tablet by mouth once daily. ? ? ? Iron 18 mg tab Take by mouth. ? ? ? No current facility-administered medications for this visit. ? ? ALLERGIES: Patient has no known allergies. ? PERSONAL HISTORY: SOCIAL HISTORY Social History ? Tobacco Use ? Smoking status: Some Days ? ? Years: 6 ? ? Types: Cigarettes ? ? Last attempt to quit: 04/22/2022 ? ? Years since quittin.6 ? Smokeless tobacco: Never Vaping Use ? Vaping Use: current everyday user ? Substances: Nicotine Substance Use Topics ? Alcohol use: Not Currently ? ? Comment: Rarely ? Drug use: Never ? FAMILY HISTORY: FAMILY HISTORY FAMILY HISTORY Problem Relation Age of Onset ? other (hysterectomy) Mother ? ? Hypertension Father ? ? No Known Problems Sister ? ? No Known Problems Sister ? ? No Known Problems Sister ? ? No Known Problems Sister ? ? No Known Problems Brother ? ? Hypertension Maternal Grandmother ? ? Diabetes Maternal Grandmother ? ? Diabetes Maternal Grandfather ? ? Diabetes Paternal Grandmother ? ? Hypertension Paternal Grandfather ? ? No Known Problems Son ? ? No Known Problems Son ? ? No Known Problems Daughter ? ? ? REVIEW OF SYMPTOMS: negative except as noted above PHYSICAL EXAMINATION: ? VITALS: Blood pressure 118/72, weight 169 lb (76.7 kg), last menstrual period 12/29/2023, not currently . ? GENERAL: The patient is well nourished, well hydrated in no acute distress. , The patient is oriented to time, place, and person. NECK: full range of motion ? ? IMPRESSION: Desires sterilization ? PLAN: Laparoscopic bilateral salpingectomy ? Pt has been counseled on risks/benefits and alternatives of surgery including but not limited to anesthesia, bleeding, infection, injury to pelvic structures including bowel, bladder, ureters and vessels. Pt wishes to proceed with surgery at this time. Risk of regret reviewed. ? Pre and post op instructions reviewed. Advised not to smoke day of surgery. ? I have reviewed and updated past medical and surgical history, medications and allergies Rhona Edge MD ?4:49 PM
[2024-01-13] VITALS (7 sets, daily range): BP systolic 97–117; BP diastolic 59–80; PULSE 62–76; RESP 14–18; TEMP 35.9–36.7; O2SAT 99–100; BMI 28.3
--- OUTSIDE RECORDS SUMMARY | 2024-01-13 08:09 | XMS RPT_ITS | CCD ---
Author Name Unknown Address [address] [place] [address] Organization [facility] Care Team Providers Care Police Patrol Lieutenant Name Role Phone Elier Cummins Attending Unavailable Lenora Sofia Primary Care Unavailable Elier Cummins Attending Unavailable Lenora Sofia Primary Care Unavailable Elier Cummins Unavailable Unavailable Wilber Sofia Unavailable Unavailable Lenora Sofia Unavailable Unavailable Wilber Sofia Unavailable Unavailable Unavailable Wilber Sofia Unavailable [phone] Yeyo Hubbard Unavailable UnavailElier Henry Unavailable Gillian Ornelas Unavailable UnavailYeyo Velasquez Unavailable UnavailDr. Wilber Malave Primary Care Unavailab cayden Hubbard, Dr. Yeyo Macias Attending Unav ailable Unavailable Primary Care Provider Unavailabl e Generic Provider MD, No Assigned Pcp Primary Car e Provider Unavailable CONNIE SANDERS Attending Unavailable LUCAS, ILENE Referring Unavailable LUCAS, ILENE Referring Unavailable LUCAS, ILENE Referring Unavailable MARISA LUCASICA Attending Unavailable BRIAN BEAVER Referring Unavail able GERARDO CASTELLON Attending Unavailable PA GRAY Attending Unavailable WISWELL, GERARDO Referring Unavailable WISWELLGERARDO Attending Unavailable WISWELL, GERARDO Referring Unavailable Generic Provider MD, No Assigned Pcp Primary Car e Provider Unavailable WILBER SOFIA Primary Care Unavailable LUZ ELENA MARTINEZ Attending Unavaila WILBER Rivera Primary Care Unavailable SILVIA GUZMAN Attending Unavailable SILVIA GUZMAN Referring Unavailable KELLIE CROOK Attending Unavailable YEYO HUBBARD Attending Unavailable GENERIC PROVIDER, NO ASSIGNED PCP Primary Care Unavailable GENERIC PROVIDER, NO ASSIGNED PCP Primary Care Unavailable YEYO HUBBARD Attending Unavailable Allergies Allergy Classification Reported Allergen(s) Allergy Type Date of Onset Reaction(s) Facility (1 source) Adhesive Tape; Translations: [Tape] Propensity to adverse reactions to drug (disorder) [facility] Repository (20 sources) Adhesive Tape allergy to substance Hives [facility] [address] Work Phone: (4 sources) Tape - Adhesive, Bandaids, Paper Unknown [facility] Medications Current Medications Medication Drug Class(es) [...] the puerperium] 12-08-2023 Chronic Other complications of (19 sources) Anemia in mother complicating , childbirth [...] [History of Menarche] Chronic Other gastrointestinal disorders (9 sources) Abnormal intestinal absorption; Translations: [Intestinal malabsorption, [...] Documented Da te Episodic/Chronic Other complications of (15 sources) Complication of , childbirth and/or the puerperium; Translations: [Other specified related conditions, unspecified trimester] Onset: 04-28-2023 04-28-2023 Episodic Other complications of (14 sources) Obstetric spinal and epidural anesthesia-induced headache; [...] 75 mm[Hg] Yeyo Hubbard DO Work Phone: [facility] 01-06-2024 21:00-0500 Heart rate 61 /min Yeyo Hubbard DO Work Phone: [facility] 01-06-2024 21:00-0500 Respiratory rate 18 /min Yeyo Hubbard DO Work Phone: [facility] 01-06-2024 21:00-0500 SaO2% (BldA) [Mass fraction] 100 % Yeyo Hubbard DO Work Phone: [facility] 01-06-2024 21:00-0500 Systolic blood pressure 105 mm[Hg] Yeyo Hubbard DO Work Phone: [facility] 01-06-2024 19:05-0500 Body height 162.6 cm Yeyo Hubbard DO Work Phone: [facility] 01-06-2024 19:05-0500 Body mass index (BMI) [Ratio] 28.32 kg/m2 Yeyo Hubbard DO Work Phone: [facility] 01-06-2024 19:05-0500 Body temperature 98.6 [degF] Yeyo Hubbard DO Work Phone: [facility] 01-06-2024 19:05-0500 Body weight 74.84 kg Yeyo Hubbard DO Work Phone: [facility] 01-06-2024 02:52-0500 Diastolic blood pressure 99 mm[Hg] Yeyo Hubbard DO Work Phone: [facility] 01-06-2024 02:52-0500 Heart rate 70 /min Yeyo Hubbard DO Work Phone: [facility] 01-06-2024 02:52-0500 Respiratory rate 16 /min Yeyo Hubbard DO Work Phone: [facility] 01-06-2024 02:52-0500 SaO2% (BldA) [Mass fraction] 97 % Yeyo Hubbard DO Work Phone: [facility] 01-06-2024 02:52-0500 Systolic blood pressure 134 mm[Hg] Yeyo Hubbard DO Work Phone: [facility] 01-06-2024 01:12-0500 Body height 162.6 cm Yeyo Hubbard DO Work Phone: [facility] 01-06-2024 01:12-0500 Body mass index (BMI) [Ratio] 28.32 kg/m2 Yeyo Hubbard DO Work Phone: [facility] 01-06-2024 01:12-0500 Body temperature 97.5 [degF] Yeyo Hubbard DO Work Phone: [facility] 01-06-2024 01:12-0500 Body weight 74.84 kg Yeyoapril Hubbard DO Work Phone: [facility] 12-29-2023 00:29-0500 Diastolic blood pressure 87 mm[Hg] Kellie Crook MD Work Phone: [facility] 12-29-2023 00:29-0500 Heart rate 91 /min Kellie Crook MD Work Phone: [facility] 12-29-2023 00:29-0500 Respiratory rate 18 /min Kellie Crook MD Work Phone: [facility] 12-29-2023 00:29-0500 SaO2% (BldA) [Mass fraction] 99 % Kellie Crook MD Work Phone: [facility] 12-29-2023 00:29-0500 Systolic blood pressure 109 mm[Hg] Kellie Crook MD Work Phone: [facility] 12-28-2023 22:38-0500 Body height 162.6 cm Kellie Crook MD Work Phone: [facility] 12-28-2023 22:38-0500 Body mass index (BMI) [Ratio] 28.32 kg/m2 Kellie Crook MD Work Phone: [facility] 12-28-2023 22:38-0500 Body temperature 98.8 [degF] Kellie Crook MD Work Phone: [facility] 12-28-2023 22:38-0500 Body weight 74.84 kg Kellie Crook MD Work Phone: [facility] 12-12-2023 03:49-0500 Diastolic blood pressure 81 mm[Hg] Silvia Guzman DO Work Phone: [facility] 02-05-2024 03:49-0500 Heart rate 92 /min Silvia Guzman DO Work Phone: [facility] 12-12-2023 03:49-0500 Respiratory rate 18 /min Silvia Guzman DO Work Phone: [facility] 12-12-2023 03:49-0500 SaO2% (BldA) [Mass fraction] 100 % Silvia Guzman DO Work Phone: [facility] 12-12-2023 03:49-0500 Systolic blood pressure 140 mm[Hg] Silvia Guzman DO Work Phone: [facility] 12-12-2023 02:07-0500 Body height 162.6 cm Silvia Guzman DO Work Phone: [facility] 12-12-2023 02:07-0500 Body mass index (BMI) [Ratio] 27.98 kg/m2 Silvia Guzman DO Work Phone: [phone] [place] [address] 12-12-2023 02:07-0500 Body temperature 96.91 [degF] Silvia Guzman DO Work Phone: [facility] 12-12-2023 02:07-0500 Body weight 73.94 kg Silvia Guzman DO Work Phone: [facility] 12-08-2023 13:20-0500 Body height 161.3 cm Gerardo Castellon MD Work Phone: [facility] 12-08-2023 13:20-0500 Body weight 73.94 kg Gerardo Castellon MD Work Phone: [facility] 10-25-2023 08:23-0500 Body weight 82.56 kg Pa Gray MD Work Phone: [facility] 10-25-2023 08:23-0500 Diastolic blood pressure 60 mm[Hg] Pa Gray MD Work Phone: [facility] 10-25-2023 08:23-0500 Systolic blood pressure 104 mm[Hg] Pa Gray MD Work Phone: [facility] 09-05-2023 13:56-0400 Body weight 78.11 kg Gerardo Castellon MD Work Phone: [facility] 09-05-2023 13:56-0400 Diastolic blood pressure 62 mm[Hg] Gerardo Castellon MD Work Phone: [facility] 09-05-2023 13:56-0400 Systolic blood pressure 110 mm[Hg] Gerardo Castellon MD Work Phone: [facility] 07-01-2023 14:14-0400 Body weight 71.67 kg Connie Plotts [employer]PARATION SUPERVISOR.CNM Work Phone: [facility] 07-01-2023 14:14-0400 Diastolic blood pressure 62 mm[Hg] Connie Plotts [employer]ATE PREPARATION SUPERVISOR.CNM Work Phone: [facility] 07-01-2023 14:14-0400 Systolic blood pressure 90 mm[Hg] Connie Plotts OFF[employer] PLATE PREPARATION SUPERVISOR.CNM Work Phone: [facility] 05-18-2023 13:04-0400 Body height 161 cm Ilene Lucas OFFSET PLATE PREPARATION SUPERVISOR.CNM Work Phone: [facility] 05-18-2023 13:04-0400 Body weight 68.58 kg Ilene Lucas OFFSET PLATE PREPARATION SUPERVISOR.CNM Work Phone: [facility] 05-18-2023 13:04-0400 Diastolic blood pressure 66 mm[Hg] Ilene Lucas OFFSET PLATE PREPARATION SUPERVISOR.CNM Work Phone: [facility] 05-18-2023 13:04-0400 Systolic blood pressure 108 mm[Hg] Ilene Lucas OFFSET PLATE PREPARATION SUPERVISOR.CNM Work Phone: [facility] 02-18-2022 02:07-0400 Body temperature 98.78 [degF] Wilber Sofia Other Phone: [facility] 02-18-2022 02:07-0400 Diastolic blood pressure 91 mm[Hg] Wilber Sofia Other Phone: [facility] 02-18-2022 02:07-0400 Heart rate 82 /min Wilber Bismark Other Phone: [facility] 02-18-2022 02:07-0400 Respiratory rate 16 /min Wilber Bismark Other Phone: [facility] 02-18-2022 02:07-0400 SaO2% (BldA) [Mass fraction] 99 % Wilber Bismark Other Phone: [facility] 02-18-2022 02:07-0400 Systolic blood pressure 116 mm[Hg] Wilber Bismark Other Phone: [facility] 02-15-2022 18:38-0400 Body temperature 97.7 [degF] Wilber Bismark Other Phone: [facility] 02-15-2022 18:38-0400 Diastolic blood pressure 85 mm[Hg] Wilber Bismark Other Phone: [facility] 02-15-2022 18:38-0400 Heart rate 87 /min Wilber Bismark Other Phone: [facility] 02-15-2022 18:38-0400 Respiratory rate 16 /min Wilber Bismark Other Phone: [facility] 02-15-2022 18:38-0400 SaO2% (BldA) [Mass fraction] 98 % Wilber Bismark Other Phone: [facility] 02-15-2022 18:38-0400 Systolic blood pressure 127 mm[Hg] Wilber Bismark Other Phone: [facility] 02-12-2022 14:08-0400 Body height 160.02 cm Wilber L Bismark Work Phone: [address] Work Phone: 02-12-2022 14:08-0400 Body mass index (BMI) [Ratio] 34.76 kg/m2 Wilber L Bismark Work Phone: [place] [address] [place] Work Phone: 02-12-2022 14:08-0400 Body surface area Derived from formula 1.92 m2 Wilber L Bismark Work Phone: [place] [address] [place] Work Phone: 02-12-2022 14:08-0400 Body weight 89 kg Wilber L Bismark Work Phone: [place] [address] [place] Work Phone: 02-12-2022 14:08-0400 Diastolic blood pressure 68 mm[Hg] Wilber L Bismark Work Phone: [place] [address] [place] Work Phone: 02-12-2022 14:08-0400 Systolic blood pressure 112 mm[Hg] Wilber L Bismark Work Phone: [address] Work Phone: 02-05-2022 13:45-0400 Body height 160.02 cm Wilber L Bismark Work Phone: [place] [address] [place] Work Phone: 02-05-2022 13:45-0400 Body mass index (BMI) [Ratio] 33.86 kg/m2 Wilber L Bismark Work Phone: [place] [address] [place] Work Phone: 02-05-2022 13:45-0400 Body surface area Derived from formula 1.9 m2 Wilber L Bismark Work Phone: [place] [address] [place] Work Phone: 02-05-2022 13:45-0400 Body weight 86.7 kg Wilber L Bismark Work Phone: [place] [address] [place] Work Phone: 02-05-2022 13:45-0400 Diastolic blood pressure 70 mm[Hg] Wilber L Bismark Work Phone: [place] [address] [place] Work Phone: 02-05-2022 13:45-0400 Systolic blood pressure 100 mm[Hg] Wilber L Bismark Work Phone: [place] [address] [place] Work Phone: 01-29-2022 13:11-0400 Body height 160.02 cm Wilber L Bismark Work Phone: [place] [address] [place] Work Phone: 01-29-2022 13:11-0400 Body mass index (BMI) [Ratio] 33.39 kg/m2 Wilber L Bismark Work Phone: [place] [address] [place] Work Phone: 01-29-2022 13:11-0400 Body surface area Derived from formula 1.89 m2 Wilber L Bismark Work Phone: [place] [address] [place] Work Phone: 01-29-2022 13:11-0400 Body weight 85.5 kg Wilber L Bismark Work Phone: [place] [address] [place] Work Phone: 01-29-2022 13:11-0400 Diastolic blood pressure 68 mm[Hg] Wilber L Bismark Work Phone: [place] [address] [place] Work Phone: 01-29-2022 13:11-0400 Systolic blood pressure 116 mm[Hg] Wilber L Bismark Work Phone: [place] [address] [place] Work Phone: 01-22-2022 13:06-0400 Body height 160.02 cm Wilber L Bismark Work Phone: [place] [address] [place] Work Phone: 01-22-2022 13:06-0400 Body mass index (BMI) [Ratio] 33 kg/m2 Wilber L Bismark Work Phone: [facility] [address] [place] Work Phone: 01-22-2022 13:06-0400 Body surface area Derived from formula 1.88 m2 Wilber L Bismark Work Phone: [place] [address] [place] Work Phone: 01-22-2022 13:06-0400 Body weight 84.5 kg Wilber L Bismark Work Phone: [facility] [place] [address] [place] Work Phone: 01-22-2022 13:06-0400 Diastolic blood pressure 66 mm[Hg] Wilber L Bismark Work Phone: [facility] [address] [place] Work Phone: 01-22-2022 13:06-0400 Systolic blood pressure 114 mm[Hg] Wilber L Bismark Work Phone: [facility] [address] [place] Work Phone: 01-08-2022 13:16-0500 Body height 160.02 cm Wilber L Bismark Work Phone: [facility] [address] [place] Work Phone: 01-08-2022 13:16-0500 Body mass index (BMI) [Ratio] 32.41 kg/m2 Wilber L Bismark Work Phone: [place] [address] [place] Work Phone: 01-08-2022 13:16-0500 Body surface area Derived from formula 1.86 m2 Wilber L Bismark Work Phone: [facility] [place] [address] [place] Work Phone: 01-08-2022 13:16-0500 Body weight 83 kg Wilber L Bismark Work Phone: [facility] [address] [place] Work Phone: 01-08-2022 13:16-0500 Diastolic blood pressure 64 mm[Hg] Wilber L Bismark Work Phone: [facility] Work Phone: 01-08-2022 13:16-0500 Systolic blood pressure 116 mm[Hg] Wilber L Bismark Work Phone: [place] [address] [place] Work Phone: 12-25-2021 09:55-0500 Body height 160.02 cm Wilber L Bismark Work Phone: [place] [address] [place] Work Phone: 12-25-2021 09:55-0500 Body mass index (BMI) [Ratio] 32.65 kg/m2 Wilber L Bismark Work Phone: [facility] [place] [address] [place] Work Phone: 12-25-2021 09:55-0500 Body surface area Derived from formula 1.87 m2 Wilber L Bismark Work Phone: [facility] [place] [address] [place] Work Phone: 12-25-2021 09:55-0500 Body temperature 97.1 [degF] Wilber L Bismark Work Phone: [place] [address] [place] Work Phone: 12-25-2021 09:55-0500 Body weight 83.6 kg Wilber L Bismark Work Phone: [place] [address] [place] Work Phone: 12-25-2021 09:55-0500 Diastolic blood pressure 64 mm[Hg] Wilber L Bismark Work Phone: [place] [address] [place] Work Phone: 12-25-2021 09:55-0500 Systolic blood pressure 122 mm[Hg] Wilber L Bismark Work Phone: [facility] [place] [address] [place] Work Phone: 10-15-2021 12:50-0500 Diastolic blood pressure 67 mm[Hg] Wilber Bismark Other Phone: [facility] 10-15-2021 12:50-0500 Heart rate 102 /min Wilber Bismark Other Phone: [facility] 10-15-2021 12:50-0500 Respiratory rate 18 /min Wilber Bismark Other Phone: [facility] 10-15-2021 12:50-0500 SaO2% (BldA) [Mass fraction] 100 % Wilber Bismark Other Phone: [facility] 10-15-2021 12:50-0500 Systolic blood pressure 116 mm[Hg] Wilber Bismark Other Phone: [facility] 10-15-2021 11:12-0500 Body height 162.5 cm Wilber Bismark Other Phone: [facility] 10-15-2021 11:12-0500 Body temperature 98.24 [degF] Wilber Bismark Other Phone: [facility] 10-15-2021 11:12-0500 Body weight 80 kg Wilber Bismark Other Phone: [facility] 09-25-2021 10:51-0500 Body height 160.02 cm Wilber L Bismark Work Phone: [facility] [employer] Work Phone: 09-25-2021 10:51-0500 Body mass index (BMI) [Ratio] 31.48 kg/m2 Wilber L Bismark Work Phone: [facility] [employer] Work Phone: 09-25-2021 10:51-0500 Body surface area Derived from formula 1.84 m2 Wilber L Bismark Work Phone: [facility] [employer] Work Phone: 09-25-2021 10:51-0500 Body temperature 96.8 [degF] Wilber L Bismark Work Phone: [facility] [place] [address] [place] Work Phone: 09-25-2021 10:51-0500 Body weight 80.6 kg Wilber L Bismark Work Phone: [place] [address] [place] Work Phone: 09-25-2021 10:51-0500 Diastolic blood pressure 70 mm[Hg] Wilber L Bismark Work Phone: [facility] [place] [facility] [address] [place] Work Phone: 09-25-2021 10:51-0500 Systolic blood pressure 110 mm[Hg] Wilber L Bismark Work Phone: [place] [address] [place] Work Phone: 08-28-2021 10:18-0400 Body height 160.02 cm Wilber L Bismark Work Phone: [facility] [address] [place] Work Phone: 08-28-2021 10:18-0400 Body mass index (BMI) [Ratio] 30.34 kg/m2 Wilber L Bismark Work Phone: [place] [address] [place] Work Phone: 08-28-2021 10:18-0400 Body surface area Derived from formula 1.81 m2 Wilber L Bismark Work Phone: [facility] [address] [place] Work Phone: 08-28-2021 10:18-0400 Body temperature 97.3 [degF] Wilber L Bismark Work Phone: [facility] [address] [place] Work Phone: 08-28-2021 10:18-0400 Body weight 77.7 kg Wilber L Bismark Work Phone: [facility] [address] [place] Work Phone: 08-28-2021 10:18-0400 Diastolic blood pressure 62 mm[Hg] Wilber L Bismark Work Phone: [place] [address] [place] Work Phone: 08-28-2021 10:18-0400 Systolic blood pressure 108 mm[Hg] Wilber L Bismark Work Phone: [place] [address] [address] Work Phone: 08-14-2021 17:30-0400 Diastolic blood pressure 79 mm[Hg] Wilber Bismark Other Phone: [facility] 08-14-2021 17:30-0400 Heart rate 87 /min Wilber Bismark Other Phone: [facility] 08-14-2021 17:30-0400 Respiratory rate 16 /min Wilber Bismark Other Phone: [facility] 08-14-2021 17:30-0400 SaO2% (BldA) [Mass fraction] 97 % Wilber Bismark Other Phone: [facility] 08-14-2021 17:30-0400 Systolic blood pressure 119 mm[Hg] Wilber Bismark Other Phone: [facility] 08-14-2021 15:11-0400 Body height 160 cm Wilber Bismark Other Phone: [facility] 08-14-2021 15:11-0400 Body temperature 98.06 [degF] Wilber Bismark Other Phone: [facility] 08-14-2021 15:11-0400 Body weight 75.3 kg Wilber Bismark Other Phone: [facility] 07-20-2021 09:50-0400 Body height 160.02 cm Wilber L Bismark Work Phone: [place] [address] [address] Work Phone: 07-20-2021 09:50-0400 Body mass index (BMI) [Ratio] 29.06 kg/m2 Wilber L Bismark Work Phone: [employer] Work Phone: 07-20-2021 09:50-0400 Body surface area Derived from formula 1.78 m2 Wilber L Bismark Work Phone: [facility] Work Phone: 07-20-2021 09:50-0400 Body temperature 97.8 [degF] Wilber L Bismark Work Phone: [employer] Work Phone: 07-20-2021 09:50-0400 Body weight 74.4 kg Wilber L Bismark Work Phone: [facility] Work Phone: 07-20-2021 09:50-0400 Diastolic blood pressure 62 mm[Hg] Wilber L Bismark Work Phone: [facility] Work Phone: 07-20-2021 09:50-0400 Systolic blood pressure 114 mm[Hg] Wilber L Bismark Work Phone: [facility] Work Phone: 11-13-2019 15:26-0500 BMI (Body Mass Index) 31.2 kg/m2 Elier Cummins [employer] Work Phone: 11-13-2019 15:26-0500 Body weight 79.9 kg Elier Cummins [employer] Work Phone: 11-13-2019 15:26-0500 BP Diastolic 62 mm[Hg] Elier Cummins [employer] Work Phone: 11-13-2019 15:26-0500 BP Systolic 112 mm[Hg] Elier Cummins [employer] Work Phone: 11-13-2019 15:26-0500 BSA (Body Surface Area) 1.83 m2 Elier Truong [place] Work Phone: 11-13-2019 15:26-0500 Height 160.02 cm Elier Truong [place] Work Phone: 10-09-2019 13:47-0500 BMI (Body Mass Index) 29.49 kg/m2 Elier Truong [place] Work Phone: 10-09-2019 13:47-0500 Body weight 75.5 kg Elier Truong [place] Work Phone: 10-09-2019 13:47-0500 BP Diastolic 64 mm[Hg] Elier Truong [place] Work Phone: 10-09-2019 13:47-0500 BP Systolic 116 mm[Hg] Elier Truong [place] Work Phone: 10-09-2019 13:47-0500 BSA (Body Surface Area) 1.79 m2 Elier Truong [place] Work Phone: 10-09-2019 13:47-0500 Height 160.02 cm Elier Truong [place] Work Phone: 09-21-2019 15:50-0500 BMI (Body Mass Index) 28.9 kg/m2 Elier Truong [place] Work Phone: 09-21-2019 15:50-0500 Body weight 74 kg Elier Truong [place] Work Phone: 09-21-2019 15:50-0500 BP Diastolic 66 mm[Hg] Elier morocho [facility] Work Phone: Encounters Encounter Date Encounter Type Care Provider Facility Start: 01-12-2024 Telephone encounter Brian Edge MD Work Phone: OB/Gynecology Procedures Date Procedure Procedure Detail Performing Clinician Start: 01-06-2024 ECG 12-LEAD WILBER RA ANTONIO Start: 01-06-2024 XR CHEST 1 VIEW WILBER BISMARK Start: 01-06-2024 INFLUENZA A AND B PCR D OUGLAS BISMARK Start: 01-06-2024 SARS-COV-2 PCR WILBER BISMARK Start: 01-06-2024 CBC W Auto Different ial panel - Blood WILBER BISMARK Start: 01-06-2024 Comprehensive metabo lic 1999 panel - Serum or Plasma WILBER BISMARK Start: 01-06-2024 D-DIMER, NON VTE DOUGLA S BISMARK Start: 01-06-2024 TROPONIN I, HIGH SENSITIVITY WILBER BISMARK Start: 01-06-2024 Ecg routine ecg w/le ast 12 lds trcg only w/o i&r Yeyo Hubbard DO Work Phone: Start: 01-06-2024 Radiologic exam ches t single view Yeyo Hubbard DO Work Phone: Start: 01-06-2024 Influenza virus A an d B RNA [Identifier] in Unspecified specimen by DARLING with probe detection Yeyo Ramsara DO Work Phone: Start: 01-06-2024 SARS-CoV-2 (COVID-19 [...] WILBER RA ANTONIO Start: 12-29-2023 GREEN TOP WILBER RA ANTONIO Start: 12-29-2023 LAVENDER TOP WILBER [...] ial panel - Blood WILBER BISMARK Start: 12-12-2023 Comprehensive metabo lic 2000 panel - Serum or Plasma WILBER BISMARK Start: 12-12-2023 D-DIMER, NON VTE DOUGLA S BISMARK Start: 12-12-2023 Lactate [Moles/volum e] in Serum or Plasma WILBER SOFIA Start: 12-12-2023 Magnesium [Mass/volu me] in Serum or Plasma WILBER SOFIA Start: 12-12-2023 ECG 12-LEAD WILBER ALVAREZ Start: 12-12-2023 Comprehensive metabo lic panel Silvia Guzman DO Work Phone: Start: 12-12-2023 Ecg routine ecg w/le ast 12 lds trcg only w/o i&r Silvia Guzman DO Work Phone: Start: 10-25-2023 URINE OB DIP B/O Kwame Gray MD Work Phone: Start: 09-05-2023 Antibody screen CHUCK Guillen MARILYN Plan of Treatment Date Care Activity Detail Author Start: 2049 Zoster Vaccines (1 of 2) Zoster Vaccines (1 of 2) [facility] Start: 09-05-2033 DTaP/Tdap/Td Vaccines (2 - Td or Tdap) DTaP/Tdap/Td Vaccines (2 - Td or Tdap) [facility] Start: 09-05-2033 DTaP/Tdap/Td Vaccines (8 - Td or Tdap) DTaP/Tdap/Td Vaccines (8 - Td or Tdap) [facility] Start: 09-05-2033 Urine microalbumin profile DTaP,Tdap,Td Vaccine (8 - Td or Tdap) [facility] Start: 05-18-2026 PAP TESTING PAP TESTING [facility] Start: 05-18-2026 Screening for malignant neoplasm of cervix [facility] Start: 01-19-2024 End: 01-19-2024 Patient encounter procedure 01/19/2024 1:40 PM EDT Office Visit [facility] [address] [place] [id number] Kay Arellano MD [address] [place] [address] [facility] Start: 12-08-2023 End: 03-08-2024 CBC panel - Blood by Automated count CBC Lab Routine Anemia, care and examination Expected: 12/08/2023, Expires: 03/08/2024 [facility] Work Phone: Immunizations Immunization Date Immunization Notes Care Provider Bi tuttle 09-05-2023 RHO(D) immune globul in- IV or IM Gerardo Castellon MD Work Phone: [facility] 09-05-2023 tetanus toxoid, redu abdias diphtheria toxoid, and acellular pertussis vaccine, adsorbed Gerardo Castellon MD Work Phone: [facility] 05-06-2015 HPV, unspecified formulation [facility] Work Phone: Payers Date Payer Category Payer Medicaid [id number] 2023 Medicaid [id number] 2018 Unknown 1999 Unknown [id number] [id number] 1999 Unknown [id number] 2.16.84 [id number] 1999 Unknown [id number] [id number] 1999 Unknown [id number] 1999 Unknown [id number] 2.16.8 [id number] 1999 Unknown [id number] 2.16.8 [id number] 1999 Unknown [id number] 2.16.84 [id number] 1999 Unknown [id number] 1999 Unknown [id number] Self-pay [id number] Social History Date Type Detail Facility Assertion Unknown if ever smoked Women [address] Work Phone: Start: 05-18-2023 End: 12-08-2023 No alcohol use No alcohol use [facility] Tobacco smoking consumption unknown [facility] Start: 04-28-2023 Tobacco smoking stat us PRIS Ex-smoker [facility] Work Phone: End: 04-22-2022 History of tobacco use Current smoker [facility] Work Phone: End: 04-22-2022 History of tobacco use Cigarette Smoker [facility] Work Phone: Start: 04-28-2023 End: 12-08-2023 Tobacco use and exposure Smokeless tobacco non-user [facility] Work Phone: Start: 04-28-2023 End: 01-02-2024 Alcohol intake Ex-drinker (finding) [facility] Start: 04-28-2023 Education 13 [facility] Start: 04-28-2023 Alcohol Comment [facility] Start: 02-22-2023 [facility] Start: 2000 Sex Assigned At Not on file C [facility] Start: 05-18-2023 End: 12-08-2023 Tobacco use panel [facility] National Score (1-100), lower number is lower risk 80 [facility] Start: 12-02-2023 End: 01-06-2024 Exposure to SARS-CoV-2 (event) Not sure [facility] Work Phone: Start: 12-08-2023 Tobacco smoking stat us PRIS Occasional tobacco smoker [facility] The thought of nan wright myself has occurred to me Never [facility] Start: 01-06-2024 [facility] Functional Status Date Assessment Result Facility Functional observable [facility] NEGATED: Highlighted row Functional performance Functional status health issues are not documented Disease [address] Work Phone: Mental Status Date Assessment Result Facility 02-15-2022 Cognitive functi ons :24 [facility] NEGATED: Highlighted row Cognitive function [Interpretation] Cognitive status health issues are not documented Disease [facility] Alexi Espinosa Work Phone: Clinical Notes 05-07-2021 to 01-12-2024 Telephone Encounter - Edwige Solomon RN - 01/12/2024 5:00 PM ESTTelephone Encounter - Brian eBaver MD - 01/12/2024 4:55 PM ESTYeyo Hubbard DO - 01/06/2024 6:58 PM EST<item> Note Date & Type Note Facility 01-12-2024 Miscellaneous Notes Left detailed message on voicemail Edwige Solomon RN Yes, that is fine. Thank you. Patient is scheduled for sterilization tomorrow. States she went to [facility] ER on 01/06/[address] A CT was performed. 6.4 x 5.5 cm simple appearing cystic lesion likely arising from the left ovary. Consider further evaluation with pelvic ultrasound if there is lower abdominal/pelvic pain to better assess the ovary. Ok to still proceed with surgery tomorrow? Hilda Perez RN documented in this encounter [facility] 01-06-2024 Emergency department Note Associated Order(s): ECG [...] performed using a different testing methodology at [facility] than at other [facility] hospitals. Direct result comparisons should only [...] and has been validated for use at [facility]. Negative results do not preclude COVID-19 infections and should not be used as the sole basis for diagnosis, treatment, or other management decisions. INFLUENZA A AND B PCR - Normal XR chest 1 view Final Result 1. No evidence of acute cardiopulmonary process. MACRO: None Signed by: Abelino Hernandez 01/06/2024 9:03 PM Dictation workstation: [id number] Medical Decision Making: Patient appears well and [...] ED Physician in the absence of a report programmer: yes Comments: EKG interpreted by Dr. Yeyo Hubbard: Normal sinus rhythm at 67 bpm. MD interval 150 ms. QTc of 414 ms. Sinus arrhythmia. No evidence of ST elevation or depression at this time. Yeyo Hubbard DO 01/06/242108 documented in this encounter [facility] Work Phone: 01-06-2024 Physician Emergency department [...] or edema. Psychiatric: Appropriate mood and affect. Ujan Coma Scale Score: 15 Patient History Past [...] Course & MDM Diagnoses as of 01/06/24 2108 Shortness of breath Medical Decision Making [...] performed using a different testing methodology at [facility] than at [facility]. Direct result comparisons should only be [...] and has been validated for use at [facility]. Negative results do not preclude COVID-19 infections and should not be used as the sole basis for diagnosis, treatment, or other management decisions. INFLUENZA A AND B PCR - Normal XR chest 1 view Final Result 1. No evidence of acute cardiopulmonary process. MACRO: None Signed by: Abelino Hernandez 01/06/2024 9:03 PM Dictation workstation: [id number] Medical Decision Making: Patient appears well and [...] ED Physician in the absence of a report programmer: yes Comments: EKG interpreted by Dr. Yeyo Hubbard: Normal sinus rhythm at 67 bpm. MD interval 150 ms. QTc of 414 ms. Sinus arrhythmia. No evidence of ST elevation or depression at this time. Yeyo Hubbard DO 01/06/242108 [facility] Work Phone: 01-06-2024 Emergency department Note [...] Urine Yellow Appearance, Urine Hazy (*) Specific [place], Urine 1.021 pH, Urine 5.0 Protein, Urine [...] Bruce Botello 01/06/2024 2:40 AM Dictation workstation: [id number] Medical Decision Making: Patient tearful upon arrival. [...] aware of her symptoms will be given OUTPATIENT PHYSICAL THERAPIST follow-up as well as will need primary [...] Care: Appropriate for discharge and follow-up with OUTPATIENT PHYSICAL THERAPIST and primary care. Prescription Drug Consideration: Oral Bentyl and Zofran. Procedure Procedures Yeyo Hubbard DO 01/06/24 0248 documented in this encounter [facility] Work Phone: 01-06-2024 Physician Emergency department [...] Urine Yellow Appearance, Urine Hazy (*) Specific [place], Urine 1.021 pH, Urine 5.0 Protein, Urine [...] Bruce Botello 01/06/2024 2:40 AM Dictation workstation: [id number] Medical Decision Making: Patient tearful upon arrival. [...] aware of her symptoms will be given OUTPATIENT PHYSICAL THERAPIST follow-up as well as will need primary [...] Care: Appropriate for discharge and follow-up with OUTPATIENT PHYSICAL THERAPIST and primary care. Prescription Drug Consideration: Oral Bentyl and Zofran. Procedure Procedures Yeyo Hubbard DO 01/06/24 0248 [facility] Work Phone: 12-28-2023 Emergency department Note [...] Detected Flu B Result Not Detected Coronavirus 2018, PCR Not Detected Narrative: This assay has [...] and has been validated for use at [facility]. Negative results do not preclude COVID-19 infections or Influenza A/B infections, and should not be used as the sole basis for diagnosis, treatment, or other management decisions. If Influenza A/B and RSV PCR results are negative, testing for Parainfluenza virus, Adenovirus and Metapneumovirus is routinely performed for [facility] pediatric oncology and intensive care inpatients, and is available on other patients by placing an add-on request. GREEN TOP No orders to display Procedures Medical Decision Making Patient's physical exam is unremarkable for acute findings. D-dimer was negative therefore DVT unlikely. Swabs for COVID flu and strep are negative. Diagnoses as of 12/28/232349 Viral illness Kellie Crook MD 12/28/232349 documented in this encounter [facility] Work Phone: 12-28-2023 Physician Emergency department [...] and has been validated for use at [facility]. Negative results do not preclude COVID-19 infections or Influenza A/B infections, and should not be used as the sole basis for diagnosis, treatment, or other management decisions. If Influenza A/B and RSV PCR results are negative, testing for Parainfluenza virus, Adenovirus and Metapneumovirus is routinely performed for [facility] pediatric oncology and intensive care inpatients, and is available on other patients by placing an add-on request. GREEN TOP No orders to display Procedures Medical Decision Making Patient's physical exam is unremarkable for acute findings. D-dimer was negative therefore DVT unlikely. Swabs for COVID flu and strep are negative. Diagnoses as of 12/28/23 2350 Viral illness Kellie Crook MD 12/28/232349 [facility] Work Phone: 12-27-2023 Miscellaneous Notes Patient [...] not like how she felt. Seen in [facility] ED 12/12 (in care everywhere) and diagnosed [...] Lenora Howard RN documented in this encounter [facility] 12-12-2023 Emergency department Note HPI Chief Complaint [...] point in time. History provided by: Patient Juan Coma Scale Score: 15 Patient History [...] Course & MDM ED Course as of 12/12/23400 Mon Dec 12, 2023 022 Twelve-lead EKG interpreted at 0210 1 sinus tachycardia at 115 2 normal axis 3 no ectopy [MS] ED Course User Index [MS] Silvia Guzman DO Diagnoses as of 12/12/23400 depression Medical Decision Making Call family medical doctor for possible medication adjustment. If symptoms worsen return to ED. Procedure Procedures Silvia Guzman DO 12/12/23401 documented in this encounter [facility] Work Phone: 12-12-2023 Physician Emergency department [...] point in time. History provided by: Patient Juan Coma Scale Score: 15 Patient History [...] Course & MDM ED Course as of 12/12/23400 Mon Dec 12, 2023 0229 Twelve-lead EKG interpreted at 0210 1 sinus tachycardia at 115 2 normal axis 3 no ectopy [MS] ED Course User Index [MS] Silvia Guzman DO Diagnoses as of 12/12/23400 depression Medical Decision Making Call family medical doctor for possible medication adjustment. If symptoms worsen return to ED. Procedure Procedures Silvia Guzman DO 12/12/23401 [facility] Work Phone: 12-08-2023 Note HNO ID: [id number] Author: GERARDO CASTELLON MD Service: ? Author Type: Physician Type: Progress Notes Filed: 12/15/2023 19:15 Note Text: VISIT Morgan Mullins is a 23 year old year old here for visit. Delivery Summary: ROS/ Recovery: Feeding: Breast and bottle feeding problems: None Menses since delivery: spotting Menstrual pattern prior to : Irregular periods Quinter since delivery: Resumed Depression: admits to symptoms [...] harming myself has occurred to me. Never [place] Depression Scale Total 13 Feeling nervous, anxious [...] external genitalia normal, normal Bartholin's glands, urethra, [employer]'s glands, no vulvar lesions, no cervical lesions, [...] annual exams and PRN Gerardo Castellon DO [facility] 12-08-2023 History of Presen t illness Narrative VISIT Morgan Mullins is a 23 year old year old here for visit. Delivery Summary: ROS/ Recovery: Feeding: Breast and bottle feeding problems: None Menses since delivery: spotting Menstrual pattern prior to : Irregular periods Quinter since delivery: Resumed Depression: admits to symptoms [...] harming myself has occurred to me. Never [place] Depression Scale Total 13 Feeling nervous, anxious [...] external genitalia normal, normal Bartholin's glands, urethra, [employer]'s glands, no vulvar lesions, no cervical lesions, [...] annual exams and PRN Gerardo Castellon DO documented in this encounter [facility] 10-27-2023 Note HNO ID: [id number] Author: Hilda Perez RN Service: ? Author Type: Registered Nurse Type: Progress Notes Filed: 10/27/2023 11:01 AM Note Text: Patient delivered via at [facility] on 10/27/23 per Brian Edge MD. See OB Outcome note. Hilda Perez RN [facility] 10-27-2023 History of Presen t illness Narrative Patient delivered via at [facility] on 10/27/23 per Brian Edge MD. See OB Outcome note. Hilda Perez RN documented in this encounter [facility] 10-25-2023 Miscellaneous Notes RR- VB No. LOF No. CTXS No. Movement: present. Other c/o: No. Medication list reviewed. Physical Exam See Flow Sheet Abd: soft, nontender, gravid Ext: edema: Trace A/P 37w0d Estimated Date of Delivery: 11/15/23 Labs: GBS done Labor precautions anemia- cont. fe and pNV, has been taking intermittently. Pa Gray M.D. documented in this encounter [facility] 10-25-2023 Instructions Aminata Jim Ma - 10/25/2023 8:26 AM EST SEQUENTIAL SCREENINGS The [facility] offers sequential screenings for women who [...] It will require an appointment with our manometer technician. This is not an ultrasound performed [...] the above symptoms, contact our office at [phone] and ask to speak with a nurse. After hours, you can call doctors registry at [phone] OR call [facility] at [phone] and ask to have the doctor economics instructor paged. If you consider this an emergency, dial 9-0-6 or go to your nearest emergency department. NEED HELP? Are you dealing with a violent or abusive relationship? Are you a victim of rape or sexual assult? Call [facility] ([place]) 24 hour Crisis Hotline: 939.166.6843 or 049-263-5195. MANUAL Your Guide to a Healthy manual is now on-line. Visit [email or web address]/[email or web address] Errol to download your free copy documented in this encounter [facility] 10-17-2023 Note HNO ID: [id number] Author: Sofya iFsher RN Service: ? Author Type: Registered Nurse Type: Progress Notes Filed: 10/17/2023 1:34 PM Note Text: Unable to obtain PA for Venofer infusions. Insurance is inactive and therefore denied. Referring provider notified. [facility] 09-19-2023 Note HNO ID: [id number] Author: Gerardo Castellon MD Service: ? Author Type: Physician Type: Progress Notes Filed: 09/19/2023 12:05 PM Note Text: Signed [facility] 09-19-2023 History of Presen t illness Narrative Signed documented in this encounter [facility] 09-13-2023 Note HNO ID: [id number] Author: Sofya Fisher RN Service: ? Author [...] provider for review and evaluation for treatment. [facility] 09-13-2023 History of Presen t illness Narrative [...] evaluation for treatment. documented in this encounter [facility] 09-05-2023 Note HNO ID: [id number] Author: Edwige Solomon RN Service: ? Author Type: ? Type: Progress Notes Filed: 09/05/2023 5:20 PM Note Text: Morgan Mullins 23 year old is here for her injection of Rhophylac. Carinalia Harpreet Antibody Screen (no units) Date Value 05/18/2023 Negative Morgan Mullins is RH Negative Rhophylac was given without incident. See immunizations for details of immunizations administered today. Provider Dr. Castellon was present in office at time of injection Morgan Mullins was given her Rhophylac pocket card. Edwige Solomon RN [facility] 09-05-2023 Note HNO ID: [id number] Author: Maria C Jimenez MA Service: ? Author Type: Consulting Services Project Manager Type: Progress Notes Filed: 09/05/2023 5:20 PM Note Text: Patient identified by name and date of . Morgan Mullins presents today for a vaccination of Tdap. Patient denies an allergy to latex: yes Patient denies a severe (life-threatening) allergy to a previous dose of Tdap, DTP, DTaP, DT or Td vaccine. Yes Patient denies history of epilepsy or neurological problems: Yes Patient is afebrile and denies being moderately or severely ill: Yes Patient denies history of Guillain-Mattaponi Syndrome (a severe paralytic illness): Yes Tdap Adacel injection was given without incident. See immunizations for details of immunizations administered today. VIS sheet provided: Yes Provider Gerardo Castellon DO was present in office at time of injection. Maria C Jimenez MA [facility] 09-05-2023 History of Presen t illness Narrative Morgan Mullins 23 year old is here for her injection of Rhophylac. Morgan Mullins Antibody Screen (no units) Date Value 05/18/2023 Negative Morgan Mullins is RH Negative Rhophylac was given without incident. See immunizations for details of immunizations administered today. Provider Dr. Castellon was present in office at time of injection Morgan Mullins was given her Rhophylac pocket card. Edwige Solomon RN Patient identified by name and date of . Morgan Mullins presents today for a vaccination of Tdap. Patient denies an allergy to latex: yes Patient denies a severe (life-threatening) allergy to a previous dose of Tdap, DTP, DTaP, DT or Td vaccine. Yes Patient denies history of epilepsy or neurological problems: Yes Patient is afebrile and denies being moderately or severely ill: Yes Patient denies history of Guillain-Mattaponi Syndrome (a severe paralytic illness): Yes Tdap Adacel injection was given without incident. See immunizations for details of immunizations administered today. VIS sheet provided: Yes Provider Gerardo Castellon DO was present in office at time of injection. Maria C Jimenez MA documented in this encounter [facility] 09-05-2023 Miscellaneous Notes SW- No ctx, vb, [...] Gerardo Castellon DO documented in this encounter [facility] 09-05-2023 Instructions Gerardo Castellon MD - 09/05/2023 1:49 PM EDT SEQUENTIAL SCREENINGS The [facility] offers sequential screenings for women who [...] It will require an appointment with our manometer technician. This is not an ultrasound performed [...] the above symptoms, contact our office at [phone] and ask to speak with a nurse. After hours, you can call doctors registry at [phone] OR call [facility] at [phone] and ask to have the doctor economics instructor paged. If you consider this an emergency, dial or go to your nearest emergency department. NEED HELP? Are you dealing with a violent or abusive relationship? Are you a victim of rape or sexual assult? Call [facility] ([facility] 24 hour Crisis Hotline: 274.687.8663 or 064-797-4255. MANUAL Your Guide to a Healthy manual is now on-line. Visit [email or web address]/HealthyPreg Errol to download your free copy In person and online childbirth options: 1) [facility] Online Virtual Childbirth and Class. -Please call to register and for more information: [phone] and register for our online classes they are $40 for both or $20 for just the class ?? 2) [facility] Online Childbirth Education, , and Pheba classes: [email or web address]://events.[facility]. org 3) Here is a list of online childbirth education and resources. [facility] has online childbirth, , and parenting classes. https://events.[facility]. org, type in childbirth https://evidencebasedbEnkata Technologiesth.com/ childbirth-class/ https://blissful-.[employer]/p/empoweredmamasguide https://mamanaturalbirth.com/ documented in this encounter [facility] 07-01-2023 Miscellaneous Notes S: Morgan Mullins is a 23 year old female who [...] Connie Sanders APRN.CNM documented in this encounter [facility] 07-01-2023 Instructions Rey Chris Cma - 07/01/2023 1:54 PM EDT SEQUENTIAL SCREENINGS The [facility] offers sequential screenings for women who [...] It will require an appointment with our manometer technician. This is not an ultrasound performed [...] the above symptoms, contact our office at [phone] and ask to speak with a nurse. After hours, you can call doctors registry at [phone] OR call [facility] at [phone] and ask to have the doctor economics instructor paged. If you consider this an emergency, dial 9--1 or go to your nearest emergency department. NEED HELP? Are you dealing with a violent or abusive relationship? Are you a victim of rape or sexual assult? Call [facility] ([place]) 24 hour Crisis Hotline: 942.165.6193 or 117-230-6477. MANUAL Your Guide to a Healthy manual is now on-line. Visit [email or web address]/HealthyPreg Errol to download your free copy documented in this encounter [facility] 05-26-2023 Miscellaneous Notes ARBEN-See progress note. Ilene Lucas APRN.CNM documented in this encounter [facility] 05-18-2023 Note HNO ID: [id number] Author: Ilene Lucas APRN.CNM Service: ? Author Type: Automotive Consultant Type: Progress Notes Filed: 05/26/2023 1:44 PM Note Text: INITIAL OB ASSESSMENT Powered Bridge Specialist offered: Patient declines. Obstetric History T3 L3 [...] use: No Multivitamin with Folic acid: Yes Muslim or heritage: No Would refuse blood transfusion if medically necessary: No Are you currently employed? Yes, Occupation: [employer] in [place], [place] Do you have any history of depression, [...] Tingling, Tremor, Anxie (more content not included)... [facility] 05-18-2023 History of Presen t illness Narrative Images from the original note were not included. INITIAL OB ASSESSMENT Powered Bridge Specialist offered: Patient declines. Obstetric History T3 L3 [...] use: No Multivitamin with Folic acid: Yes Muslim or heritage: No Would refuse blood transfusion if medically necessary: No Are you currently employed? Yes, Occupation: [employer] in [place], [place] Do you have any history of [...] Completed, no positive findings documented. SBIRT Morgan Mullins was given the 4P's screening tool. Morgan [...] Your guide to a health and the Special Library Librarian. Discussed aneuploidy and carrier screening. Regarding aneuploidy [...] hemoglobin electrophoresis. Patient: Accepts Reviewed midwifery and carpenter maintenance services that are available. 2) Consult women's behavioral health for depression. 3) Unsure LMP, unplanned . Dating US soonest appointment. 4) Anatomy US at 20 weeks Follow up in 4 weeks or sooner prn. Ilene Lucas APRN.CNM documented in this encounter [facility] 05-18-2023 Instructions Kathleen Van Ma - 05/18/2023 12:56 PM EDT Please select the following link to access the [facility] Your Guide to a Healthy . [email or web address] documented in this encounter [facility] 04-28-2023 Note HNO ID: [id number] Author: Shae Smith RN Service: ? Author [...] None, Apgar5: None, Living: None, Comments: None [facility] 04-28-2023 History of Presen t illness Narrative [...] None, Comments: None documented in this encounter [facility] 04-28-2023 Miscellaneous Notes DISTANCE HEALTH VISIT This Team Access Model visit is a phone encounter. It required patient-provider interaction for the medical decision making as documented below. Father of the baby involved. He is the father of her last 2 children. She delivered her other 3 children in [place]. Some information is available in care everywhere. I have asked her to contact [facility] in [place] and ask for her delivery operative reports to be faxed here. Our fax number was provided to the patient. Records sent to Dr. Castellon's office for review. Patient was seen at [facility] on March 31 for pelvic pain. An [...] testing.Shae Smith RN documented in this encounter [facility] 04-28-2023 Miscellaneous Notes Pt scheduled for 05/02/23. Nancy Field LPN Agree with PCP víctoral Patient had prenew OB appointment on the telephone today. She is 11 weeks. New to [facility]. Somebody had previously placed a hold on Dr. Castellon's May 02 1:30 PM time for a new OB for her. I am sending financial counselor a note to okay appointment. Please watch for approval so we can schedule her.Also Dr Castellon patient is new to [facility]. She states that she has [...] is further advice documented in this encounter [facility] 05-07-2021 History of Presen t illness Narrative Patient presents stating that she has not had a menstrual flow since May. Denies any vaginal bleeding or cramps. She has some nausea and breast tenderness for several weeks. [address] Work Phone: Evaluation note Constitutional: aler t, orientedRespiratory/Thorax: normal respiratory effort, lungs clear, no wheezes or rhonchiCardiovascular: S1 S2 RRR, no murmursExtremities: no calf tenderness, reflexes 2+ [facility] Diagnosis Encounter for screening for malignant neoplasm of cervix- Primary Screening for malignant neoplasm of the cervix Supervision of other normal , antepartum History of depression [facility] Diagnosis 20 weeks gestation of - Primary state, incidental Encounter for supervision of normal first in second trimester Supervision of normal first [facility] Diagnosis Encounter for anatomic survey- Primary Supervision of other normal , antepartum 20 weeks gestation of state, incidental [facility] Diagnosis 29 weeks gestation of - Primary state, incidental Encounter for supervision of normal first in second trimester Supervision of normal first Need for vaccination Need for prophylactic vaccination and inoculation against unspecified single disease Rh negative state in antepartum period Rhesus isoimmunization affecting management of mother, antepartum condition [facility] [place] [facility]* Diagnosis Maternal iron deficiency anemia complicating , third trimester Impaired intestinal absorption Unspecified intestinal malabsorption [facility] [place] [facility]* Diagnosis 37 weeks gestation of - Primary state, incidental Anemia complicating , third trimester Supervision of high risk in third trimester Unspecified high-risk [facility] [place] [facility]* Diagnosis depression- Primary Mental disorders of mother, complicating , childbirth, or the puerperium, unspecified as to episode of care documented in this encounter [facility] Work Phone: Evaluation note* Diagnosis Anemia, - Primary care and examination Routine follow-up History of depression Anxiety neurosis Anxiety state, unspecified Encounter for initial prescription of contraceptive pills General counseling for prescription of oral contraceptives [facility] [place] [facility]* Diagnosis Viral illness- Primary Unspecified viral infection, in conditions classified elsewhere and of unspecified site documented in this encounter [facility] Work Phone: Evaluation note* Diagnosis Epigastric pain- Primary Abdominal pain, epigastric Cyst of left ovary Other and unspecified ovarian cyst Elevated blood pressure reading Elevated blood pressure reading without diagnosis of hypertension documented in this encounter [facility] Work Phone: Evaluation note* Diagnosis Shortness of breath- Primary documented in this encounter [facility] Work Phone: Hospital Discharge instructions* Activity:Return [...] symptoms worsen, call 911 [facility] *Information obtained from DONTA s: Save Your Life: Get Care for These POST- Warning SignsOn Behalf on the [facility] Maternity Staff, Congratulations on your . It was our pleasure to take care of you and your during your stay. We hope during this stay that we have exceeded all of your expectations. We will be calling you in a few days to check up on you and your . Please allow us to speak with you and please ask questions or let us know if you have any concerns. Again, Congratulations![facility] Attachments The following attachments cannot be sent through Care Everywhere. * _V[facility] Infection, [facility] ([place]ish[facility]* Attachments The following attachments cannot be sent through Care Everywhere. * Abdominal pain (Swedish) * Ovarian Cyst ED (Swedish) * High Blood Pressure ED (Swedish) [facility] Discharge [facility]* Attachments The following attachments cannot be sent through Care Everywhere. * Shortness of Breath, Adult ED (Swedish) [facility]: Reason for referral (narrative)* Diagnostic Procedure Only (Routine) - Authorized Specialty Diagnoses / Procedures Referred By Contac t Referred To Contact [facility] Diagnoses Supervision of other normal , antepartum Procedures OBSTETRIC ULTRASOUND WHI US PREG UTERUS AFTER 1ST TRIMEST GESTATION Ilene Lucas APRN.JULIANNA [address] [place] [address] [facility] [address] [place] [address] [place] [address] Referral ID Status Reason Start Date Expiration Date Visits Requested Visits Authorized [id number] Authorized Auto-Generat ed Referral 05/18/2023 05/17/2024 1 1 [facility] for referral (narrative)* Consultation (Routine) - Authorized Specialty Diagnoses / Procedures Referred By Contac t Referred To Contact Family Medicine / Primary Care Yeyo Hubbard, [address] [place] [address] [place] [address] Referral ID Status Reason Start Date Expiration Date Visits Requested Visits Authorized [id number] Authorized Specialty Services Required 01/06/2024 01/05/2025 1 1 [facility] Work [facility]: [facility] Consultation (Routine) - Authorized Specialty Diagnoses / Procedures Referred By Contac t Referred To Contact Family Medicine / Primary Care Yeyo Hubbard, [address] [place] [address] [place] [address] Referral ID Status Reason Start Date Expiration Date Visits Requested Visits Authorized [id number] Authorized Specialty Services Required 01/06/2024 01/05/2025 1 1 [facility] Work Phone: Summary Purpose Family History Grandparent Name Dates Details Family history of [...] Touchworks DATE CREATED AUTHOR AUTHOR'S ORGANIZ ATION 04/15/2023 [facility] DATE CREATED AUTHOR AUTHOR'S ORGANIZ ATION 12/28/2023 [facility] DATE CREATED AUTHOR AUTHOR'S ORGANIZ ATION 01/09/2024 [facility]ter DATE CREATED AUTHOR AUTHOR'S ORGANIZ ATION 01/09/2024 [facility] DATE CREATED AUTHOR AUTHOR'S ORGANIZ ATION 01/09/[address] [facility] <item><item><item><item> Privacy Markings (unrecogniz ed section [...] or prosecute any alcohol or drug abuse patient.[facility] HospitalIn the event this information is protected by the Federal Confidentiality of Alcohol and Drug Abuse Patient Records regulations: The Federal rules restrict any use of the information to criminally investigate or prosecute any alcohol or drug abuse patient.[facility] HospitalIn the event this information is protected by the Federal Confidentiality of Alcohol and Drug Abuse Patient Records regulations: The Federal rules restrict any use of the information to criminally investigate or prosecute any alcohol or drug abuse patient.[facility] HospitalIn the event this information is protected by the Federal Confidentiality of Alcohol and Drug Abuse Patient Records regulations: The Federal rules restrict any use of the information to criminally investigate or prosecute any alcohol or drug abuse patient.[facility] HospitalIn the event this information is protected by the Federal Confidentiality of Alcohol and Drug Abuse Patient Records regulations: The Federal rules restrict any use of the information to criminally investigate or prosecute any alcohol or drug abuse patient.[facility] HospitalIn the event this information is protected by the Federal Confidentiality of Alcohol and Drug Abuse Patient Records regulations: The Federal rules restrict any use of the information to criminally investigate or prosecute any alcohol or drug abuse patient.[facility] HospitalIn the event this information is protected by the Federal Confidentiality of Alcohol and Drug Abuse Patient Records regulations: The Federal rules restrict any use of the information to criminally investigate or prosecute any alcohol or drug abuse patient.[facility] HospitalIn the event this information is protected by the Federal Confidentiality of Alcohol and Drug Abuse Patient Records regulations: The Federal rules restrict any use of the information to criminally investigate or prosecute any alcohol or drug abuse patient.[facility] HospitalIn the event this information is protected by the Federal Confidentiality of Alcohol and Drug Abuse Patient Records regulations: The Federal rules restrict any use of the information to criminally investigate or prosecute any alcohol or drug abuse patient.[facility] HospitalIn the event this information is protected by the Federal Confidentiality of Alcohol and Drug Abuse Patient Records regulations: The Federal rules restrict any use of the information to criminally investigate or prosecute any alcohol or drug abuse patient.[facility] HospitalIn the event this information is protected by the Federal Confidentiality of Alcohol and Drug Abuse Patient Records regulations: The Federal rules restrict any use of the information to criminally investigate or prosecute any alcohol or drug abuse patient.[facility] HospitalIn the event this information is protected by the Federal Confidentiality of Alcohol and Drug Abuse Patient Records regulations: The Federal rules restrict any use of the information to criminally investigate or prosecute any alcohol or drug abuse patient.[facility] HospitalIn the event this information is protected by the Federal Confidentiality of Alcohol and Drug Abuse Patient Records regulations: The Federal rules restrict any use of the information to criminally investigate or prosecute any alcohol or drug abuse patient.[facility] HospitalIn the event this information is protected by the Federal Confidentiality of Alcohol and Drug Abuse Patient Records regulations: The Federal rules restrict any use of the information to criminally investigate or prosecute any alcohol or drug abuse patient.[facility] Reason for Visit (unrecogniz ed section and content) Reason Comments Care Specialty Diagnoses / Procedures Referred By Contac t Referred To Contact OUTPATIENT PHYSICAL THERAPIST Diagnoses PNOB Procedures PNOB Self Radiologic Electronic Specialist [facility] [employer] [address] [place] [address] Referral ID Status Reason Start Date Expiration Date Visits Requested Visits Authorized [id number] Authorized Financial Clearance Required - Self Pay Patient Cleared - Qualified 100% FAS 2023 07/24/2023 99 99 Reason Comments Initial OB Visit Specialty Diagnoses / Procedures [facility] To Contact OUTPATIENT PHYSICAL THERAPIST Diagnoses PNOB Procedures PNOB Self Radiologic Electronic Specialist [facility] [employer] [address] [place] [address] Referral ID Status Reason Start Date Expiration Date V isits Requested Visits Authorized [id number] Closed Financial Clearance Required - Self Pay Patient Cleared - Qualified 100% FAS 2023 07/24/2023 99 99 Reason Onset Date Comments Care 07/01/2023 Reason Comments US Specialty Diagnoses / Procedures [facility] To Contact [facility] Diagnoses Supervision of other normal , antepartum Procedures OBSTETRIC ULTRASOUND WHI US PREG UTERUS AFTER 1ST TRIMEST GESTATION Ilene Lucas APRN.CN [address] [place] [address] [facility] [address] [place] [address] Referral ID Status Reason Start Date Expiration Date V isits Requested Visits Authorized [id number] Closed Auto-Generate d Referral 05/18/2023 05/17/2024 1 [...] her heart is racing since noon today Reason Comments Pelvic Pain Scheduled Active and Recently Administ ered Medications (unrecognized section and content) Scheduled Medication [...] Care Teams (unrecognized sec tion and content) [employer]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 Start Date End Date Generic Provider, No Assigned PcpMD [address] [place] [address] PCP - General 12/12/23 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 Start Date End Date Generic Provider, No Assigned Pcp[facility] [address] [place] [address] PCP - General 12/12/23 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 Start Date End Date Generic Provider, No Assigned Pcp[facility] [address] [place] [address] 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 [facility] [email or web address] [facility]. provides no warranty or guarantee of the accuracy or completeness of information in this document.
[2024-01-13 08:15] LABS: Internal QC Validated? YES +Cl - CLEAR BKGD; Pregnancy, Urine Negative Negative; Record Kit Lot#,Urine Preg HCG0000718086
[2024-01-13] MEDS: Lactated Ringers 1,000 ML 15 ML IV ×2 (08:33→10:43)
--- NOTE | 2024-01-13 09:14 | DCINST_ITS ---
Discharge Instructions Diet Discharge Diet: No restrictions Activity May resume sexual activity in: 2 weeks Lifting Restrictions: 20-25 lbs Dressing / Incision Call your doctor if your incision/area has: Continuous Slow Oozing, Sudden Increased Bleeding, Increased Pain/ Swelling, Increased Redness, Foul Smelling Discharge and Swelling at the incision site Call your doctor if you observe: Fever of 101 or Higher, Inability to urinate, Inability to have a bowel movement, Using more than 1 pad per hour and Uncontrolled pain Additional Dressing/Incision Instructions:: You have skin glue over your incision sites, do not pick off. You may shower and let the soap and water run over the incision sites and dab dry. Follow Up Care Please Follow Up With: Rhona Edge MD When: 1-2 weeks post OP if you need an appointment please call [phone] Test Results: Test results from this visit will be discussed in further detail at your follow- up appointment, if applicable. Discharge Plan Admission Attending Provider: Rhona Edge Primary Care Provider: EBONY ALEJO Discharge Orders/Prescriptions Prescriptions: No Action ondansetron 4 mg tablet,disintegrating 4 mg PO Q8H PRN (Reason: nausea and vomiting) dicyclomine 20 mg tablet 20 mg PO 4X/DAY PRN (Reason: abdominal pain) Referrals / Follow Up: Care Physician,No Primary [Non-Staff] - Disposition Disposition (needs filled in before D/C Order can be placed): Home, Self Care
--- NOTE | 2024-01-13 09:15 | FALS_PTH ---
PATHOLOGY RESULTS PATIENT: KATIE SMITH [place] [facility] [place][id number] AGE/SX: 23/F ROOM: RE01/13/[address]: Dr. Rhona Edge MD : 2000 BED: DIS: 01/13/2024 SPEC #: [id number] RECD: 01/13/24 12:49 STATUS: JOSE M KATHLEEN #: [id number] CATHY: 01/13/24 09:[address]: Rhona Edge DEPT: SURGICAL PATHOLOGY RECD BY: Liseth Andrade ENTERED: 01/13/24 12:49 SP TYPE: FALL TUBES Tissues: Fallopian tube CYST Procedures: Surgery Specimen Level II Surgery Specimen Level IV HEADER OPERATION: Laparoscopic salpingectomy PRE-OP DIAGNOSIS: Sterilization TISSUE SUBMITTED: A - Bilateral fallopian tubes, B - Cyst wall MICROSCOPIC DIAGNOSIS A. Right and left fallopian tubes, bilateral salpingectomies: Complete cross-sections of two fallopian tubes. Benign paratubal cyst of one fallopian tube. B. Cyst wall, not otherwise specified, excision: Fragments of ovarian corpus luteal cyst. AM:becca 01/16/2024 MICROSCOPIC DESCRIPTION Slides are reviewed. GROSS DESCRIPTION A - Received in fixative is one container labeled with the patient's name and designated bilateral fallopian tubes. The specimen consists of bilateral fallopian tubes including fimbrial ends measuring 7.5 cm in length and 0.6 cm in diameter. The second fallopian tube measures 7.5 cm in length and 0.7 cm in diameter. The fallopian tubes are not identified as right or left. Two detached pieces of fimbrial ends are noted measuring in aggregate 1.8 x 1.0 x 0.5 cm. Sections reveal unremarkable cut surfaces. The second fallopian tube with detached fimbrial end also shows a paratubal cyst measuring 0.8 cm in greatest dimension. Utilization Specialist sections are submitted in two cassettes as follows: 1 - fallopian tube with attached fimbrial end, 2 - fallopian tube with detached fimbrial end and paratubal cyst. B - Received in fixative is one container labeled with the patient's name and designated cyst wall. The specimen consists of multiple pieces of pink soft tissue that in aggregate measure 3.5 x 2.5 x 0.5 cm. The entire specimen is submitted in two cassettes. / SJ:becca 01/13/2024 TC:5 CPT: 11958, 66868 x2
[2024-01-13] MEDS: Bupivacaine 0.5% PF 10 ML VIAL (09:58)
--- NOTE | 2024-01-13 10:01 | OP.PCM_ITS ---
Report of Operation Date of Procedure: 01/13/24 Pre-Operative Diagnosis: Desires sterilization Post-Operative Diagnosis: Same, Left ovarian cyst Surgery/Procedure Performed:: Laparoscopic Bilateral salpingecotmy, Left ovarian cystectomy Description of Surgical Findings:: 5cm simple appearing left ovarian cyst , normal uterus and tubes. Right ovary normal. Surgeon: milan winters Type of Anesthesia: General and Local Special Medications: la Specimen's removed: bilateral fallopian tubes, left ovarian cyst wall Estimated Blood Loss (mL): <5cc Fluids Replaced: 900 Description of Procedure: After informed consent was obtained patient was taken to the operating room she was placed in supine position she was given anesthesia. She was then placed in the [employer] stirrups and she was prepped and draped in normal sterile fashion. Bladder was drained prior to the start of procedure. At this time attention was turned to the vaginal portion where weighted speculum placed at posterior fornix vagina single-tooth tenaculum was used to gently grasp the internal the cervix. uterus was gently sounded to approximately 8cm. Uterine manipulator was placed without difficulty. Legs then placed in parallel with the abdomen the tenaculum and the weighted speculum were removed. 2 towel clamps were placed at level of umbilicus. Marcaine was injected infraumbilical and a small incision was made. The 5 mm trocar was placed under direct visualization. CO2 gas was used to insufflate the intra-abdominal cavity. Upon inspection no gross abnormalities appreciated- the uterus tubes and right ovary appeared to be normal- left ovary had a 5cm simple appearing cyst. At this time then the LLQ and RLQ ports were placed First Marcaine was injected and small incision was made a knife and the 5 mm trocars were placed. At this time then tubes were traced back to the fimbriated ends. Enseal was used to coagulate and ligate along mesosalpinx bilaterally until tubes removed completely. Good hemostasis was appreciated. At this time suction fire adjuster with the needle tip was used to puncture the simple cyst drained the fluid which was straw yellow in color. At this time then the cyst was opened and the cyst wall was removed with gentle opposing traction. Once the cyst wall was removed irrigation was performed. Minimal oozing was appreciated it was coagulated and La was placed. Good hemostasis was noted. At this time procedure was deemed complete successful. The gas was desufflated on from the intra-abdominal cavity. The trochars were removed. Skin was closed using 4-0 Monocryl in a subcutaneous fashion. Dermabond glue was placed. Instrument lap and needle counts were correct ?2. The uterine manipulator was removed. Vaginal sweep was performed it was negative. There were no complications anticipated normal postoperative course for this patient. Grafts/Implants Used: none Procedure Start Time: 09:30 Procedure Stop Time: 10:00 Complications none Admit VTE Documentation VTE Present on Admission: Yes VTE Mechan Device Prophylaxis: SCD's VTE Pharm Prophylaxis ordered?: No Reason prophylaxis not ordered:: Procedure Not Indicated
== END 2024-01-13 11:42 | disposition home or self-care (01) ==
LOC: SDC 07:56 → AC 07:57
PROVIDERS: Referring Provider Obstetrics & Gynecology; Visit Provider Obstetrics & Gynecology
PROC: (CPT 58661; principal; 2024-01-13 09:00)
DX: Z30.2 Encounter for sterilization (principal); N83.12 Corpus luteum cyst of left ovary; F17.290 Nicotine dependence, other tobacco product, uncomplicated; F17.210 Nicotine dependence, cigarettes, uncomplicated
CPT/HCPCS: 58661; 58662; 00840; 88304; 81025; 88302; 88305; C1760; J2405